=== PATIENT | female | born 1995 | race Caucasian/White ===

== ENCOUNTER → 2019-05-13 08:37 | Outpatient (CLI) | payer BC, SELFPAY ==
[2019-05-13 10:10] LABS: HCG,Quantitative 1584 mIU/mL
== END ==
PROVIDERS: Visit Provider Obstetrics & Gynecology
DX: Z34.90 Encounter for supervision of normal pregnancy, unspecified, unspecified trimester (principal)
CPT/HCPCS: 36415; 84702

== ENCOUNTER → 2019-07-22 13:16 | Outpatient (CLI) | payer BC, SELFPAY ==
--- NOTE | 2019-07-22 13:32 | US_ITS ---
PROCEDURE: US OB >= 14 WEEKS FETUS CLINICAL INDICATION: Early spotting, early OB with spotting COMPARISON: US OB TRANSVAGINAL from 05/17/2019 FINDINGS: There is a single live fetus in cephalic position. heart body motion noted. Average ultrasound age is 15 weeks 5 days. Cervix is closed and measures 3 cm. Following parameters are obtained: BPD 15 weeks 6 days, OFD 15 weeks 4 days, HC 15 weeks 3 days, AC 15 weeks 6 days, FL 15 weeks 4 days. heart tones are present 156 beats per minute. The placenta is anterior and grade 1 IMPRESSION: Live IUP at 15 weeks 5 days. Anterior placenta. No obvious retroplacental hemorrhage Estimated due date by Ultrasound is 01/08/2020 Dictated by: Wilner Meyers MD 07/22/2019 15:44 Electronically signed by Wilner Meyers MD in [place] 07/22/2019 15:44
== END ==
PROVIDERS: Visit Provider Nurse Practitioner Obstetrics & Gynecology
DX: O46.90 Antepartum hemorrhage, unspecified, unspecified trimester (principal)
CPT/HCPCS: 76805

== ENCOUNTER → 2019-08-19 13:02 | Outpatient (CLI) | payer BC, SELFPAY ==
--- NOTE | 2019-08-19 13:06 | US_ITS ---
PROCEDURE: US OB /MATERNAL DETAIL CLINICAL INDICATION: vaginal bleeding in Anatomy exam COMPARISON: US OB >= 14 WEEKS FETUS from 07/22/2019 FINDINGS: There is a single live fetus present which is in breech presentation. Placenta is anterior in implantation and grade 1. No obvious previa or abruption. Complete survey performed and was unremarkable on the submitted images as in PACS. No discrete anomalies identified on survey imaging by technologist. Active fetus. Three-vessel cord with satisfactory umbilical cord insertion. 4- chamber heart noted. Survey of brain & ventricles Unremarkable. Face and neck survey unremarkable. Diaphragm and chest views unremarkable. Abdomen: Both kidneys noted and unremarkable. Stomach noted and satisfactory. Spine: Survey of the spine satisfactory with no anomalies identified nor imaged. Both arms and legs noted. Amniotic Fluid: Adequate. Maternal adnexa: No significant findings. Average ultrasound age is 19 weeks 5 days. Estimated weight is 314 g. The following parameters are obtained BPD 19 weeks 1 day, OFD 20 weeks 3 days, HC 19 weeks 2 days, AC 19 weeks 6 days, FL 20 weeks 1 day. Heart rate is 140 beats per minute. All parameters correlate. No obvious anomalies are evident. IMPRESSION: Live IUP at 19 weeks 5 days. Breech presentation. All parameters correlate with no obvious anomalies. Please see above for detail Dictated by: Wilner Meyers MD 08/20/2019 19:08 Electronically signed by Wilner Meyers MD in [facility] 08/20/2019 19:08
== END ==
PROVIDERS: Visit Provider Nurse Practitioner Obstetrics & Gynecology
DX: O46.90 Antepartum hemorrhage, unspecified, unspecified trimester (principal)
CPT/HCPCS: 76810; 76811

== ENCOUNTER 2019-09-12 10:36 | Emergency (ER) | payer BC, SELFPAY ==
[2019-09-12 10:43] VITALS: BP 129/78; PULSE 103; RESP 18; TEMP 36.8; O2SAT 100; BMI 28.3
--- NOTE | 2019-09-12 10:45 | HMH.EDPREG ---
ED Disposition Clinical Impression: Muscle ache, Anxiety Disposition: Home, Self-Care Condition on Discharge: Good Instructions: DI for Musculoskeletal Pain, DI for Anxiety -- Adult Additional Instructions: You can use Tylenol for muscle aches or pain, not ibuprofen during . Follow-up with Dr. Hobson early next week for reevaluation. Return for any worsening symptoms, fever, other acute new concerns. - Critical Care Critical Care Time: No Attestation: On , the high probability of a clinically significant, sudden or life threatening deterioration of the following system(s) required my full and direct attention, intervention and personal management. The time I documented below is in addition to time spent performing reported procedures but includes the following listed in this critical care notation. Medical Decision Making - Medical Records Medical records reviewed: Yes: I reviewed the patient's medical records. - Min Inquiry Pt receiving controlled substance: No Vital Signs: 09/12/19 10:43 Temperature 98.2 F Temperature Source Oral Pulse Rate [Right Radial] 103 H Respiratory Rate 18 Blood Pressure [Right Arm] 129/78 Blood Pressure Mean [Right Arm] 95 Blood Pressure Source [Right Arm] Automatic Cuff Blood Pressure Position [Right Arm] Sitting 02 Sat by Pulse Oximetry 100 Oxygen Delivery Method Room Air - Lab Data Lab Results 09/12/19 11:00: WBC 13.8 H, RBC 3.54 L, Hgb 9.5 L, Hct 29.8 L, MCV 84.4, MCH 26.9 L, MCHC 31.9, RDW 15.8, Plt Count 241, MPV 9.6, Neut % (Auto) 76.4, Lymph % (Auto) 18.3, [place] % (Auto) 2.4, Eos % (Auto) 2.6, Baso % (Auto) 0.3, Neut # (Auto) 10.6 H, Lymph # (Auto) 2.5, [place] # (Auto) 0.3, Eos # (Auto) 0.4, Baso # (Auto) 0.0 09/12/19 11:00: Sodium 136, Potassium 3.5, Chloride 101, Carbon Dioxide 24, Anion Gap 14.5, BUN 7, Creatinine 0.60, Estimated Creat Clear 176, Estimated GFR 123, Est GFR ( Amer) 149, Glucose 146 H, Calcium 9.7 09/12/19 11:00: Total Bilirubin 0.2, Direct Bilirubin 0.0, Conjugated Bilirubin 0.0, Indirect Bilirubin 0.2, Unconjugated Bilirubin 0.2, AST 19, ALT 11 L, Alkaline Phosphatase 57, Total Protein 7.1, Albumin 3.7 09/12/19 11:00: Urine Color Yellow, Urine Appearance Sl cloudy, Urine pH 8.5, Ur Specific [place] 1.020, Urine Protein Negative, Urine Glucose (UA) Negative, Urine Ketones Negative, Urine Blood Negative, Urine Nitrate Negative, Urine Bilirubin Negative, Urine Urobilinogen 0.2, Ur Leukocyte Esterase Negative, Urine RBC None, Urine WBC 3-5, Ur Squamous Epith Cells 5-10, Urine Bacteria None Result diagrams: 09/12/19 11:00 09/12/19 11:00 Medical Decision Narrative: Patient with multiple concerns I suspect most likely related to anxiety. She has no unilateral swelling or tenderness that would suggest DVT. Electrolytes are within normal limits. She is slightly anemic, but this is unlikely to be the cause of her multiple concerns. Advise follow-up with Dr. Hobson early next week for reevaluation, return for any worsening symptoms or fever. There is no protein in the urine or clinically significant hypertension that would suggest preeclampsia. No UTI. FHT appropriate. HPI - General Stated complaint: numbness in legs and arms, due 01/06 Time Seen by Provider: 09/12/19 10:45 Mode of Arrival: Ambulatory Source of Information: Patient Limitations: No Limitations - History of Present Illness HPI Narrative: This is a 24-year-old female G2, P1 at 23 weeks who presents to the emergency department for evaluation of multiple complaints. She states that bilateral upper and lower extremities have been tingling and cramping, restless. Nothing makes her symptoms better or worse. She complains of epigastric pressure sensation and that her eyes have been burning. No chest pain or shortness of breath. She admits to struggling with anxiety regularly and that this may be contributing to her symptoms. Her has bee
[2019-09-12 11:12] LABS: Basophils % 0.3 % (0.1-2.0); Eosinophils # 0.4 K/mm3 (0.0-0.4); Eosinophils % 2.6 % (0.1-12.0); Hematocrit 29.8 % (37.0-47.0); Hemoglobin 9.5 g/dL (12.2-16.2); Lymphocytes # 2.5 K/mm3 (0.7-4.5); Lymphocytes % 18.3 % (10-50); Mean Corpuscular HGB Conc 31.9 g/dL (31.8-35.4); Mean Corpuscular Hemoglobin 26.9 pg (27.0-31.2); Mean Corpuscular Volume 84.4 fl (81-99); Mean Platelet Volume 9.6 fl (7.4-10.4); Monocytes # 0.3 K/mm3 (0.1-1.0); Monocytes % 2.4 % (1.7-9.3); Neutrophils # 10.6 K/mm3 (1.8-7.8); Neutrophils % 76.4 % (37.0-80.0); Platelet Count 241 K/mm3 (142-424); Red Blood Count 3.54 M/mm3 (4.20-5.40); Red Cell Distribution Width 15.8 % (11.5-17.5); White Blood Count 13.8 K/mm3 (4.8-10.8)
[2019-09-12 11:16] LABS: Alanine Aminotransferase 11 U/L (12-78); Albumin Level 3.7 g/dl (3.5-5.0); Alkaline Phosphatase 57 U/L (38-126); Anion Gap 14.5 mEq/L (5-15); Aspartate Amino Transferase 19 U/L (14-36); Bilirubin,Indirect 0.2 mg/dL (0.0-0.9); Bilirubin,Total 0.2 mg/dl (0.2-1.3); Bilirubin,Unconjugated 0.2 mg/dL (0.0-1.1); Blood Urea Nitrogen 7 mg/dl (7-17); Calcium 9.7 mg/dl (8.4-10.2); Carbon Dioxide 24 mmol/L (22.0-30.0); Chloride 101 mmol/L (98-107); Creatinine Clearance Estimated 176 mL/min (50-200); Estimated Glomerular Filt Rate 123 ml/min (>60); GFR (African American) 149 ML/MIN (>60); Glucose 146 mg/dl (74-100); Potassium 3.5 mmoL/L (3.5-5.1); Sodium 136 mmol/L (136-145); Total Protein,Serum 7.1 g/dl (6.3-8.2)
[2019-09-12 11:17] LABS: Microscopic, Urine URINE MICROSCOPIC (MICROSCOPIC)
[2019-09-12 11:18] LABS: Appearance,Urine SL CLOUDY (Clear); Bilirubin,Urine Negative (Negative); Blood, Urine Negative (Negative); Color,Urine YELLOW (Yellow); Glucose,Urine (UA) Negative (Negative); Ketones,Urine Negative (Negative); Leukocyte Esterase,Urine Negative (Negative); Nitrate,Urine Negative (Negative); PH,Urine 8.5 (5.0-8.5); Protein,Urine Negative (Negative); Urobilinogen,Urine 0.2 EU/dl (0.2)
[2019-09-12 11:29] VITALS: BP 110/68; PULSE 103; O2SAT 99
[2019-09-12 11:58] VITALS: BP 110/68; PULSE 103; RESP 18; TEMP 36.8; O2SAT 99
== END 2019-09-12 12:00 | disposition home or self-care (01) ==
PROVIDERS: Emergency Provider Emergency Medicine
DX: M79.10 Myalgia, unspecified site (principal); F41.9 Anxiety disorder, unspecified; Z3A.23 23 weeks gestation of pregnancy; Z90.09 Acquired absence of other part of head and neck; F17.290 Nicotine dependence, other tobacco product, uncomplicated
CPT/HCPCS: 80048; 80076; 81001; 85025; 99283

== ENCOUNTER → 2019-10-13 10:43 | Outpatient (CLI) | payer BC, SELFPAY ==
[2019-10-13 11:36] LABS: Glucose,Fasting 82 mg/dl (74-100)
[2019-10-13 12:45] LABS: Glucose 1 Hour 140 mg/dL (74-100)
== END ==
PROVIDERS: Visit Provider Nurse Practitioner Obstetrics & Gynecology
DX: Z34.90 Encounter for supervision of normal pregnancy, unspecified, unspecified trimester (principal)
CPT/HCPCS: 36415; 82951

== ENCOUNTER 2019-10-15 17:08 | Outpatient (CLI) | payer BC, SELFPAY ==
[2019-10-15 17:42] VITALS: BP 110/71; PULSE 108; RESP 20; TEMP 36.7; O2SAT 100; BMI 29.6
[2019-10-15 17:47] LABS: Microscopic, Urine URINE MICROSCOPIC (MICROSCOPIC)
[2019-10-15 17:48] LABS: Appearance,Urine CLEAR (Clear); Bilirubin,Urine Negative (Negative); Blood, Urine Negative (Negative); Color,Urine YELLOW (Yellow); Glucose,Urine (UA) Negative (Negative); Ketones,Urine Negative (Negative); Leukocyte Esterase,Urine Negative (Negative); Nitrate,Urine Negative (Negative); Protein,Urine Negative (Negative)
[2019-10-15 17:54] LABS: Bacteria,Urine 1+ /lpf; RBC,Urine Occasional #/hpf (0-3)
[2019-10-15 18:00] LABS: Benzodiazepines Screen,Urine Negative ng/ml (<200)
[2019-10-15 18:01] LABS: Amphetamine/Metha Screen,Urine Negative ng/ml (<1000)
[2019-10-15 18:02] LABS: Barbiturates Screen,Urine Negative ng/ml (<200); Methadone Screen,Urine Negative ng/ml (<300)
[2019-10-15 18:03] LABS: Cannabinoid Screen,Urine Positive ng/ml (<50); Cocaine Screen,Urine Negative ng/ml (<300)
[2019-10-15 18:05] LABS: Opiate Screen,Urine Negative ng/ml (<300)
[2019-10-15 18:06] LABS: Phencyclidine Screen,Urine Negative ng/ml (<25)
== END 2019-10-15 18:12 | disposition home or self-care (01) ==
LOC: OBOUT 17:12 → OB 17:14
PROVIDERS: PCP Nurse Practitioner Obstetrics & Gynecology; Visit Provider Obstetrics & Gynecology
DX: O26.892 Other specified pregnancy related conditions, second trimester (principal); Z3A.28 28 weeks gestation of pregnancy; R10.2 Pelvic and perineal pain; R11.2 Nausea with vomiting, unspecified
CPT/HCPCS: 59025; 80305; 81001

== ENCOUNTER → 2019-10-21 10:08 | Outpatient (CLI) | payer BC, SELFPAY ==
[2019-10-21 10:40] LABS: Glucose,Fasting 86 mg/dl (74-100)
[2019-10-21 12:09] LABS: Glucose 1 Hour 117 mg/dL (74-100)
[2019-10-21 12:56] LABS: Glucose 2 Hour 122 mg/dL (74-100)
[2019-10-21 13:53] LABS: Glucose 3 Hour 101 mg/dL (74-100)
== END ==
PROVIDERS: Visit Provider Nurse Practitioner Obstetrics & Gynecology
DX: Z34.90 Encounter for supervision of normal pregnancy, unspecified, unspecified trimester (principal)
CPT/HCPCS: 36415; 82951

== ENCOUNTER → 2019-10-29 12:29 | Outpatient (CLI) | payer BC, SELFPAY ==
--- NOTE | 2019-10-29 12:33 | US_ITS ---
PROCEDURE: US OB BIOPHYSICAL PROFILE CLINICAL INDICATION: rule out abruption Bleeding with TECHNIQUE: FINDINGS: There is a single live fetus in cephalic presentation. heart and body motion is noted. Cervix is closed and measures 3 cm transabdominal. Placenta is anterior and grade 1. No previa or abruption evident. The following parameters are obtained: Average ultrasound age is Average 29weeks 6days Estimated due date by ultrasound is 01/08/2020. Estimated weight is 1,398g. This is 21 percent. BPD: 30 weeks 4 days OFD: 29 weeks 0 days HC: 29 weeks 3 days AC: 29 weeks 0 days FL: 30 weeks 1 day heart rate: 158bpm bpm. HC/AC: 1.09 Cephalic index: 0.8 FL/BPD: 0.76 FL/AC: 0.23 Amniotic fluid index: 13.17cm Qualitative AFV: 2 breathing movements: 2 Gross body movements: 2 Tone: 2 Biophysical profile score: 8 IMPRESSION: Live IUP at 29 weeks 6 days. Cephalic position. No evidence of previa or abruption. Please see above for detail Dictated by: Wilner Meyers MD 10/29/2019 17:02 Electronically signed by Wilner Meyers MD in [place] 10/29/2019 17:02
== END ==
PROVIDERS: Visit Provider Nurse Practitioner Obstetrics & Gynecology
DX: O46.90 Antepartum hemorrhage, unspecified, unspecified trimester (principal)
CPT/HCPCS: 76816; 76819

== ENCOUNTER 2019-11-14 22:27 | Outpatient (CLI) | payer BC, SELFPAY ==
[2019-11-14 23:13] VITALS: BMI 27.3
[2019-11-14 23:24] LABS: Microscopic, Urine URINE MICROSCOPIC (MICROSCOPIC)
[2019-11-15 00:08] LABS: Barbiturates Screen,Urine Negative ng/ml (<200)
[2019-11-15 00:09] LABS: Benzodiazepines Screen,Urine Negative ng/ml (<200)
[2019-11-15 00:10] LABS: Amphetamine/Metha Screen,Urine Negative ng/ml (<1000); Methadone Screen,Urine Negative ng/ml (<300)
[2019-11-15 00:11] LABS: Cannabinoid Screen,Urine Positive ng/ml (<50); Cocaine Screen,Urine Negative ng/ml (<300)
[2019-11-15 00:13] LABS: Opiate Screen,Urine Negative ng/ml (<300); Phencyclidine Screen,Urine Negative ng/ml (<25)
[2019-11-15 00:37] LABS: Appearance,Urine CLEAR (Clear); Bilirubin,Urine Negative (Negative); Blood, Urine Negative (Negative); Color,Urine YELLOW (Yellow); Glucose,Urine (UA) Negative (Negative); Ketones,Urine Negative (Negative); Leukocyte Esterase,Urine Negative (Negative); Nitrate,Urine Negative (Negative); Protein,Urine Negative (Negative); Specific Gravity, Urine 1.015 (1.005-1.030); Urobilinogen,Urine 0.2 EU/dl (0.2)
[2019-11-15 00:44] LABS: Amorphous Sediment,Urine 2+ /lpf
[2019-11-15 01:27] VITALS: BP 114/76; PULSE 113; RESP 17; TEMP 36.9; O2SAT 98; BMI 27.3
== END 2019-11-14 23:40 | disposition home or self-care (01) ==
LOC: OBOUT 22:28 → OB 22:29
PROVIDERS: Visit Provider Nurse Practitioner Obstetrics & Gynecology
DX: O26.893 Other specified pregnancy related conditions, third trimester (principal); Z3A.32 32 weeks gestation of pregnancy; W18.39XA Other fall on same level, initial encounter; Y93.E1 Activity, personal bathing and showering
CPT/HCPCS: 59025; 80305; 81001; G0463

== ENCOUNTER 2019-12-03 12:40 | Outpatient (CLI) | payer BC, SELFPAY ==
[2019-12-03 12:46] VITALS: BP 99/61; PULSE 103; RESP 20; TEMP 37.3; O2SAT 98; BMI 31.1
[2019-12-03 13:13] LABS: Microscopic, Urine URINE MICROSCOPIC (MICROSCOPIC)
[2019-12-03 13:18] LABS: Appearance,Urine CLEAR (Clear); Bilirubin,Urine Negative (Negative); Blood, Urine Negative (Negative); Color,Urine YELLOW (Yellow); Glucose,Urine (UA) Negative (Negative); Ketones,Urine Negative (Negative); Leukocyte Esterase,Urine Negative (Negative); Nitrate,Urine Negative (Negative); PH,Urine 6.5 (5.0-8.5); Protein,Urine Negative (Negative); Urobilinogen,Urine 0.2 EU/dl (0.2)
[2019-12-03 13:28] LABS: Squamous Epithelial Cell,Urine Occasional #/hpf (0-5)
[2019-12-03 13:29] LABS: Fetal Membrane Rupture (Rapid) Negative (Negative)
[2019-12-03 13:30] LABS: Amphetamine/Metha Screen,Urine Negative ng/ml (<1000)
[2019-12-03 13:31] LABS: Barbiturates Screen,Urine Negative ng/ml (<200); Benzodiazepines Screen,Urine Negative ng/ml (<200)
[2019-12-03 13:34] LABS: Cannabinoid Screen,Urine Positive ng/ml (<50); Cocaine Screen,Urine Negative ng/ml (<300)
[2019-12-03 13:35] LABS: Methadone Screen,Urine Negative ng/ml (<300)
[2019-12-03 13:36] LABS: Opiate Screen,Urine Negative ng/ml (<300); Phencyclidine Screen,Urine Negative ng/ml (<25)
[2019-12-03 14:08] LABS: Basophils # 0.1 K/mm3 (0-0.2); Basophils % 0.4 % (0.1-2.0); Eosinophils # 0.2 K/mm3 (0.0-0.4); Eosinophils % 1.9 % (0.1-12.0); Hematocrit 26.4 % (37.0-47.0); Hemoglobin 8.3 g/dL (12.2-16.2); Lymphocytes # 2.4 K/mm3 (0.7-4.5); Lymphocytes % 19.8 % (10-50); Mean Corpuscular HGB Conc 31.5 g/dL (31.8-35.4); Mean Corpuscular Hemoglobin 24.5 pg (27.0-31.2); Mean Corpuscular Volume 77.7 fl (81-99); Mean Platelet Volume 9.6 fl (7.4-10.4); Monocytes # 0.4 K/mm3 (0.1-1.0); Monocytes % 3.7 % (1.7-9.3); Neutrophils # 8.8 K/mm3 (1.8-7.8); Neutrophils % 74.3 % (37.0-80.0); Platelet Count 296 K/mm3 (142-424); Red Cell Distribution Width 15.8 % (11.5-17.5); White Blood Count 11.9 K/mm3 (4.8-10.8)
[2019-12-05 12:38] LABS: HIV Screen 4th Generation wRfx Non Reactive (Non Reactive)
[2019-12-05 14:16] LABS: Hepatitis B Surface Antigen Negative (Negative)
[2019-12-05 18:48] LABS: Rapid Plasma Reagin Ab Titer Non Reactive (NonRea<1:1)
[2019-12-06 09:53] LABS: Rubella Antibodies, IgG 1.68 index (Immune >0.99)
== END 2019-12-03 14:05 | disposition home or self-care (01) ==
LOC: OBOUT 12:42 → OB 12:43
PROVIDERS: Visit Provider Nurse Practitioner Obstetrics & Gynecology
DX: O26.893 Other specified pregnancy related conditions, third trimester (principal); Z3A.34 34 weeks gestation of pregnancy; R10.2 Pelvic and perineal pain
CPT/HCPCS: 36415; 59025; 80305; 81001; 84112; 85025; 86592; 86762; 87340; G0463

== ENCOUNTER 2019-12-08 12:53 | Outpatient (CLI) | payer BC, SELFPAY ==
[2019-12-08 13:10] VITALS: BP 116/67; PULSE 120; RESP 18; TEMP 36.3; O2SAT 98
[2019-12-08 13:41] VITALS: BP 107/67; PULSE 107; RESP 18; O2SAT 98
== END 2019-12-08 13:50 | disposition home or self-care (01) ==
LOC: INF 12:53
PROVIDERS: Visit Provider Nurse Practitioner Obstetrics & Gynecology
DX: O99.013 Anemia complicating pregnancy, third trimester (principal)
CPT/HCPCS: 96365; J1756

== ENCOUNTER 2019-12-10 08:45 | Outpatient (CLI) | payer BC, SELFPAY ==
[2019-12-10 09:18] VITALS: BP 105/52; PULSE 102; RESP 18; TEMP 36.9
[2019-12-10 09:50] VITALS: BP 124/71; PULSE 98; RESP 18
== END 2019-12-10 10:10 | disposition home or self-care (01) ==
LOC: INF 08:47
PROVIDERS: Visit Provider Nurse Practitioner Obstetrics & Gynecology
DX: O99.013 Anemia complicating pregnancy, third trimester (principal)
CPT/HCPCS: 96365; J1756

== ENCOUNTER → 2019-12-13 10:32 | Outpatient (CLI) | payer BC, SELFPAY ==
[2019-12-13 10:55] VITALS: BP 113/70; PULSE 126; RESP 18; TEMP 36.7; O2SAT 96
[2019-12-13 11:10] VITALS: BMI 37.0
[2019-12-13 11:30] VITALS: BP 106/63; PULSE 104; RESP 18; O2SAT 96
[2019-12-13 12:00] VITALS: BP 112/69; PULSE 100; RESP 17; O2SAT 99
== END ==
PROVIDERS: Visit Provider Nurse Practitioner Obstetrics & Gynecology
DX: O99.013 Anemia complicating pregnancy, third trimester (principal)
CPT/HCPCS: 96365; G0463; J1756

== ENCOUNTER 2019-12-15 10:55 | Outpatient (CLI) | payer BC, SELFPAY ==
[2019-12-15 11:07] VITALS: BP 111/70; PULSE 101; RESP 18; TEMP 36.6
[2019-12-15 11:50] VITALS: BP 113/66; PULSE 102; RESP 18
== END 2019-12-15 11:50 | disposition home or self-care (01) ==
LOC: INF 10:58
PROVIDERS: Visit Provider Nurse Practitioner Obstetrics & Gynecology
DX: O99.013 Anemia complicating pregnancy, third trimester (principal)
CPT/HCPCS: 96365; J1756

== ENCOUNTER 2019-12-17 10:45 | Outpatient (CLI) | payer BC, SELFPAY ==
[2019-12-17 11:08] VITALS: BP 105/57; PULSE 103; RESP 18; O2SAT 97
[2019-12-17 11:55] VITALS: BP 111/60; PULSE 100; RESP 18
== END 2019-12-17 11:55 | disposition home or self-care (01) ==
LOC: INF 10:48
PROVIDERS: Visit Provider Nurse Practitioner Obstetrics & Gynecology
DX: O99.013 Anemia complicating pregnancy, third trimester (principal)
CPT/HCPCS: 96365

== ENCOUNTER → 2019-12-20 16:50 | Outpatient (CLI) | payer BC, SELFPAY | PROVIDERS: Visit Provider Nurse Practitioner Obstetrics & Gynecology | DX: Z34.90 Encounter for supervision of normal pregnancy, unspecified, unspecified trimester (principal) | CPT/HCPCS: 86403 ==

== ENCOUNTER 2019-12-23 09:51 | Outpatient (CLI) | payer BC, SELFPAY ==
[2019-12-23 10:02] VITALS: BMI 31.2
[2019-12-23 10:07] VITALS: BP 115/71; PULSE 113; RESP 18; TEMP 36.5; O2SAT 100; BMI 30.9
[2019-12-23 10:10] LABS: Microscopic, Urine URINE MICROSCOPIC (MICROSCOPIC)
[2019-12-23 10:13] LABS: Appearance,Urine CLEAR (Clear); Bilirubin,Urine Negative (Negative); Blood, Urine Negative (Negative); Color,Urine YELLOW (Yellow); Glucose,Urine (UA) Negative (Negative); Ketones,Urine Negative (Negative); Leukocyte Esterase,Urine Negative (Negative); Nitrate,Urine Negative (Negative); PH,Urine 7.5 (5.0-8.5); Protein,Urine Negative (Negative); Specific Gravity, Urine 1.015 (1.005-1.030); Urobilinogen,Urine 0.2 EU/dl (0.2)
[2019-12-23 10:25] LABS: Amphetamine/Metha Screen,Urine Negative ng/ml (<1000); Bacteria,Urine Trace /lpf; RBC,Urine Occasional #/hpf (0-3)
[2019-12-23 10:26] LABS: Barbiturates Screen,Urine Negative ng/ml (<200)
[2019-12-23 10:27] LABS: Benzodiazepines Screen,Urine Negative ng/ml (<200); Cannabinoid Screen,Urine Negative ng/ml (<50)
[2019-12-23 10:28] LABS: Cocaine Screen,Urine Negative ng/ml (<300)
[2019-12-23 10:29] LABS: Methadone Screen,Urine Negative ng/ml (<300); Opiate Screen,Urine Negative ng/ml (<300)
[2019-12-23 10:30] LABS: Phencyclidine Screen,Urine Negative ng/ml (<25)
== END 2019-12-23 11:40 | disposition home or self-care (01) ==
LOC: OBOUT 09:52 → OB 09:53
PROVIDERS: Visit Provider Nurse Practitioner Obstetrics & Gynecology
DX: O60.03 Preterm labor without delivery, third trimester (principal); Z3A.37 37 weeks gestation of pregnancy
CPT/HCPCS: 59025; 80305; 81001; 96365; G0463

== ENCOUNTER → 2020-01-01 14:07 | Outpatient (CLI) | payer BC, SELFPAY ==
[2020-01-01 17:49] LABS: Coronavirus 19 IgG Antibody Negative (Negative); Coronavirus 19 IgM Antibody Negative (Negative)
== END ==
PROVIDERS: Visit Provider Nurse Practitioner Obstetrics & Gynecology
DX: Z03.818 Encounter for observation for suspected exposure to other biological agents ruled out (principal)
CPT/HCPCS: 36415; 86328

== ENCOUNTER 2020-01-03 05:18 | Inpatient (IN) | payer BC, SELFPAY ==
[2020-01-03] VITALS (10 sets, daily range): BP systolic 110–164; BP diastolic 60–82; PULSE 80–99; RESP 12–18; TEMP 36.5–36.8; O2SAT 92–99; BMI 31.4
[2020-01-03 06:07] LABS: Microscopic, Urine URINE MICROSCOPIC (MICROSCOPIC)
[2020-01-03 06:15] LABS: Chloride 108 mmol/L (98-107); Potassium 3.7 mmoL/L (3.5-5.1); Sodium 137 mmol/L (136-145)
[2020-01-03 06:17] LABS: Basophils # 0.1 K/mm3 (0-0.2); Basophils % 0.6 % (0.1-2.0); Eosinophils # 0.3 K/mm3 (0.0-0.4); Eosinophils % 2.7 % (0.1-12.0); Hematocrit 32.7 % (37.0-47.0); Hemoglobin 10.5 g/dL (12.2-16.2); Lymphocytes # 2.2 K/mm3 (0.7-4.5); Lymphocytes % 23.5 % (10-50); Mean Corpuscular Hemoglobin 28.7 pg (27.0-31.2); Mean Corpuscular Volume 89.6 fl (81-99); Mean Platelet Volume 9.4 fl (7.4-10.4); Monocytes # 0.4 K/mm3 (0.1-1.0); Monocytes % 4.5 % (1.7-9.3); Neutrophils # 6.5 K/mm3 (1.8-7.8); Neutrophils % 68.6 % (37.0-80.0); Platelet Count 203 K/mm3 (142-424); Red Blood Count 3.64 M/mm3 (4.20-5.40); White Blood Count 9.5 K/mm3 (4.8-10.8)
[2020-01-03 06:18] LABS: Blood Urea Nitrogen 4 mg/dl (7-17); Creatinine Clearance Estimated 235 mL/min (50-200); Estimated Glomerular Filt Rate 152 ml/min (>60); GFR (African American) 183 ML/MIN (>60); Red Cell Distribution Width 25.8 % (11.5-17.5)
[2020-01-03 06:19] LABS: Anion Gap 12.7 mEq/L (5-15); Calcium 9.4 mg/dl (8.4-10.2); Carbon Dioxide 20 mmol/L (22.0-30.0); Glucose 86 mg/dl (74-100)
[2020-01-03 06:44] LABS: Appearance,Urine CLEAR (Clear); Bilirubin,Urine Negative (Negative); Blood, Urine Negative (Negative); Color,Urine YELLOW (Yellow); Glucose,Urine (UA) Negative (Negative); Ketones,Urine Negative (Negative); Leukocyte Esterase,Urine Negative (Negative); Nitrate,Urine Negative (Negative); Protein,Urine Negative (Negative); Urobilinogen,Urine 0.2 EU/dl (0.2)
[2020-01-03 07:03] LABS: Amphetamine/Metha Screen,Urine Negative ng/ml (<1000); Barbiturates Screen,Urine Negative ng/ml (<200)
[2020-01-03 07:04] LABS: Benzodiazepines Screen,Urine Negative ng/ml (<200)
[2020-01-03 07:05] LABS: Cannabinoid Screen,Urine Negative ng/ml (<50); Cocaine Screen,Urine Negative ng/ml (<300)
[2020-01-03 07:06] LABS: Methadone Screen,Urine Negative ng/ml (<300); Opiate Screen,Urine Negative ng/ml (<300)
[2020-01-03 07:07] LABS: Phencyclidine Screen,Urine Negative ng/ml (<25)
[2020-01-03 07:48] LABS: Bacteria,Urine Trace /lpf
[2020-01-03 08:03] LABS: Cord Blood PH 7.42 (7.35-7.45)
[2020-01-03 08:13] LABS: Microscopic,Cath URINE MICROSCOPIC (MICROSCOPIC)
--- NOTE | 2020-01-03 08:37 | HMH.OPNOTE ---
Date of procedure: 01/03/20 Pre-op Diagnosis:: Term , previous section, desire for sterilization Post-op Diagnosis:: Term , previous section, desire for sterilization Procedure performed:: Repeat lower segment transverse section and bilateral salpingectomy Surgeon:: Rony Roberson MD [employer] Specialist(s):: Cynthia Burrell TAX SERVICES SPECIALIST:: Lupillo Brown Anesthesia: spinal Estimated blood loss (mL): 1,000 Clinical Note:: She is a 24-year-old 2 para 1 at 39 weeks gestational age. She has had a previous section as result of that was offered repeat lower segment transverse section at term. She also expressed desire for sterilization. The risks and benefits of surgery as well as the irreversibility of bilateral salpingectomy were discussed with the patient prior to surgery. Operative findings:: She delivered a liveborn male child at 7:53 AM on the morning of January 02, 2020. The baby had Apgars of 8 at 1 minute and 9 at 5 minutes. He weighed 8 pounds 0 ounces. pH was 7.42. Ovaries and tubes appeared normal. Operative note:: She was taken to the operating room where spinal anesthesia was found be adequate. She was prepped and draped in normal sterile fashion in the supine position with a leftward tilt. A Moreno catheter was in the bladder. A Pfannenstiel skin incision was made with knife then carried through to the underlying layer of fascia with cautery. The fascia was opened in the midline with cautery and extended laterally using Reagan scissors. [place] clamps were applied to the superior aspect of the fascial incision which was tented up and the underlying rectus muscles dissected off using cautery. The Nataly clamps were then applied to the inferior aspect of the fascial incision which in a similar fashion was tented up and the underlying rectus muscles dissected off using cautery. The rectus muscles were then in the midline, the peritoneum identified, and entered sharply with Metzenbaum scissors. This incision was then extended superiorly and inferiorly with cautery. We had good visualization of the bladder inferiorly. The bladder peritoneum was then opened in the midline and extended laterally using Metzenbaum scissors. A bladder flap was created digitally. Transverse incision was made through the uterine muscle to the amnion. This incision was then extended laterally using fingers traction. The amnion was entered sharply with knife. There was clear amniotic fluid. The infant's head was then delivered atraumatically. This was followed by the anterior shoulder and the rest of the infant's body atraumatically. The oropharynx and nasopharynx were bulb suctioned. We allowed the cord to continue to pulsate for approximately 1 minute. The cord was then doubly clamped and cut. The infant was then handed off to Dr. Angeles who assigned Apgars of 8 at 1 minute and 9 at 5 minutes. We then obtained cord blood as well as cord pH. The pH was 7.42. Using gentle traction on the cord and countertraction on the fundus I was able to easily deliver the placenta intact. It had a normal three-vessel cord. The uterus was then cleared of clots and debris . The uterus was then exteriorized from the abdominal cavity. The uterine incision was then closed using running 0 Vicryl suture in a locked fashion. A second layer of the same suture was used to imbricate the first layer. The bladder peritoneum was then closed using running 2-0 Vicryl suture in a locked fashion. The gutters and cul-de-sac were then cleared of clots and debris . Once again hemostasis was assured. We then performed a bilateral salpingectomy. The right tube was grasped with a Alexandra and we cauterized along the mesosalpinx. The tube was then removed at the cornua. This was similar performed on the opposite side. After once again assuring hemostasis the uterus was then returned to the abdominal cavity. The peritoneum was gras
--- NOTE | 2020-01-03 08:40 | P.PN_ITS ---
[facility] Anesthesia Checklist - Patient Identification Patient Identification: Arm Band - Structural Data Admitted From: Inpatient Planned Operative Procedure/s: Repeat c/s with BTL Consent for Planned Operative Procedure(s) Verified: Yes Verified Documents: Surgical Consent, History and Physical - NPO Status Verified Time NPO: 00:00 - Additional verifications Anesthesia Reactions: No - Airway Assessment C-Spine Mobility Assessed: Yes (mp2) TMJ Mobility Assessed: Yes Dentition: Good Dentition - Neurological Assessment Level of Consciousness: Awake, Alert - Anesthesia Plan Anesthesia Risk discussed: Yes Anesthesia Plan: Verified ASA Class: II Anesthesia Type: Spinal [facility] History I have reviewed the patient's past medical history: Yes Medical History: Denies:: Diabetes Mellitus Type 1, Diabetes Mellitus Type 2 *Have you ever received a pneumonia vaccine?: No *Have you received a flu vaccine this season?: No Other Medical History: Reports: Anemia Anesthesia experience/problems:: nac Laterality Cases: Bilateral: Tonsillectomy Other Surgeries: Yes: , Diagnostic Lap Amputation: No Fractures: No - *Social History Smoking Status: Current every day smoker Tobacco Type: cigarettes # Packs/Day (cigarettes): 1 Alcohol Intake: never Alcohol Intake Frequency:: other Substance Use Type: marijuana *Occupational Status:: unemployed Housing: house Household Members: spouse, children *Travel in the last 8 weeks: None Family Hx:: No significant family history Para: 1
--- NOTE | 2020-01-03 08:41 | HMH.ANESI ---
[facility] Anesthesia Record Part I Intake, IV Amount: 2,000 Estimated blood loss (mL): 1,000 Urine output (mL): 200 Blood Pressure: 149/75 SaO2: 96 Pulse Rate: 93 Respiratory Rate: 16 Temperature: 97.7 F Patient is:: Drowsy, Stable Stable to PACU at:: 08:35
--- NOTE | 2020-01-03 08:43 | HMH.OBAPHP ---
OB - H&P: HPI Antepartum - History of Present Illness Chief complaint: Previous section, desire for sterilization History of present illness: she is a 24-year-old 2 para 1 who is 39 weeks gestational age. She had a previous section and was offered repeat lower segment transverse section at term. She also expressed desire for sterilization. - History of Present Criteria for establishing EDC:: LMP confirmed by 1st trimester US care: good care Ultrasounds: normal 1st trimester US, normal mid trimester US Obstetrical complications: previous Medical complications: none [facility] History I have reviewed the patient's past medical history: Yes Medical History: Denies:: Diabetes Mellitus Type 1, Diabetes Mellitus Type 2 *Have you ever received a pneumonia vaccine?: No *Have you received a flu vaccine this season?: No Other Medical History: Reports: Anemia Anesthesia experience/problems:: nac Laterality Cases: Bilateral: Tonsillectomy Other Surgeries: Yes: , Diagnostic Lap Amputation: No Fractures: No - *Social History Smoking Status: Current every day smoker Tobacco Type: cigarettes # Packs/Day (cigarettes): 1 Alcohol Intake: never Alcohol Intake Frequency:: other Substance Use Type: marijuana *Occupational Status:: unemployed Housing: house Household Members: spouse, children *Travel in the last 8 weeks: None Family Hx:: No significant family history Para: 1 Review of Systems - Review of Systems Review of systems:: pertinent systems reviewed and negative unless documented below Meds Home Medications Medication Instructions Recorded Confirmed Type Ondansetron [Zofran 4mg ODT] 4 mg PO Q8 PRN 3 Days #8 tab.rapdis 05/11/19 12/31/19 Rx acetaminophen 160 mg/5 mL oral 160 mg PO NEEDED PRN ml 09/28/19 12/31/19 History liquid Albuterol Sulfate [Albuterol 8.5 gm IH DAILYP PRN 12/08/19 12/31/19 History Sulfate Hfa] Allergies Allergy/AdvReac Type Severity Reaction Status Date / Time No Known Allergies Allergy Verified 12/31/19 10:03 OB - H&P: Exam - Physical Exam Vital signs: Temp Pulse Resp BP Pulse Ox 97.7 F 93 H 16 149/75 H 96 01/03/20 08:42 01/03/20 08:42 01/03/20 08:42 01/03/20 08:42 01/03/20 05:45 - Constitutional no acute distress - Routine HEENT Exam Head: Present: normocephalic Eye: Present: EOMI, PERRL ENT: Present: mucous membranes moist - Routine Neck Exam Present: supple, full ROM - Routine Respiratory Exam Absent: accessory muscle use (good air entry bilaterally), respiratory distress, wheezes, crackles - Routine Cardiovascular Exam Present: RRR. Absent: murmur - Routine Abdominal Exam Present: soft, normoactive bowel sounds. Absent: tenderness, distended, guarding - Routine Rectal Exam Patient deferred: visual exam, digital exam - Routine Exam Patient deferred: external exam, groin exam, perineal exam - Routine Extremities Exam Present: full ROM. Absent: cyanosis, edema - Routine Skin Exam Present: intact. Absent: cyanosis - Routine Neurological Exam Present: alert, oriented X3 - Routine Psychiatric Exam Present: normal affect OB - Results - Labs Labs: Short CBC 01/03/20 Range/Units 05:45 WBC 9.5 (4.8-10.8) K/mm3 Hgb 10.5 L (12.2-16.2) g/dL Hct 32.7 L (37.0-47.0) % Plt Count 203 (142-424) K/mm3 BMP 01/03/20 05:45 Sodium 137 Potassium 3.7 Chloride 108 H Carbon Dioxide 20 L BUN 4 L Creatinine 0.50 L Glucose 86 Calcium 9.4 Urine 01/03/20 Range/Units 05:40 Urine Color Yellow (Yellow) Urine Appearance Clear (Clear) Urine pH 7.0 (5.0-8.5) Ur Specific [place] 1.020 (1.005-1.030) Urine Protein Negative (Negative) Urine Glucose (UA) Negative (Negative) OB - A/P Antepartum (1) Previous section complicating , with delivery Current visit: Yes Status:
[2020-01-03 09:26] LABS: Appearance,Urine/Cath CLEAR (Clear); Bilirubin,Cath Negative (Negative); Blood, Urine/Cath Negative (Negative); Color,Urine/Cath YELLOW (Yellow); Glucose,Urine/Cath (UA) Negative (Negative); Ketones,Urine/Cath Negative (Negative); Leukocyte Esterase,Cath Negative (Negative); Nitrate,Cath Negative (Negative); Protein,Urine/Cath Negative (Negative); Urobilinogen,Cath 0.2 EU/dl (0.2)
--- NOTE | 2020-01-03 10:50 | HMH.PHAVTE ---
[facility] Pharmacy VTE Monitoring - Patient Demographics Admission date: 01/03/20 Report Date: 01/03/20 Time: 10:50 Allergies/Adverse Reactions: Patient Allergies No Known Allergies Allergy (Verified 12/31/19 10:03) Height: 1.65 m Weight: 85.786 kg Patient Problems: Current Active Problems Previous section complicating , with delivery (Acute) delivery delivered (Acute) Admission for tubal ligation (Acute) - VTE Risk Labs: VTE Related Lab Results Hgb 10.5 g/dL (12.2-16.2) L 01/03/20 05:45 Hct 32.7 % (37.0-47.0) L 01/03/20 05:45 Plt Count 203 K/mm3 (142-424) 01/03/20 05:45 BUN 4 mg/dl (7-17) L 01/03/20 05:45 Creatinine 0.50 mg/dl (0.52-1.04) L 01/03/20 05:45 Estimated Creat Clear 235 mL/min (50-200) 01/03/20 05:45 Clinical Trial Participant: No - Prophylaxis VTE Prophylaxis Ordered?: Yes Types of VTE Prophylaxis: IPCS Knee High (POST OP)
[2020-01-03 10:56] LABS: WBC,Urine/Cath Occasional #/hpf (0-3)
--- NOTE | 2020-01-03 12:26 | HMH.ANESII ---
[facility] Anesthesia Record Part II Discharge Time: 09:25 Destination: Obstetric PACU nurse assessment reviewed?: Yes Patient Condition:: Good Anesthesia Complications:: None Swallowing reflex intact?: Yes Cyanosis?: No Blood Pressure: 137/64 Pulse Rate: 83 Temperature: 98 F Mental Status: Alert & Oriented Pain level:: 0 Nausea and/or vomitting:: None Intake, IV Amount: 0
[2020-01-04 06:46] LABS: Hematocrit 26.1 % (37.0-47.0); Hemoglobin 8.1 g/dL (12.2-16.2)
[2020-01-04 08:00] VITALS: BP 95/53; PULSE 85; RESP 18; TEMP 36.8; O2SAT 100
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
--- NOTE | 2020-01-04 13:59 | HMH.ACPN2 ---
Internal Medicine - PN: Subj *Date: 01/04/20 *Time: 13:59 Interval history: She is doing well although she does complain of some bilateral shoulder pain. I suspect she has some diaphragmatic irritation from her surgery. Hemoglobin is slightly low at 8.1. She is otherwise asymptomatic. Her lochia is normal. Exam Vital signs and Labs for Last 24 Hours: Temp Pulse Resp BP Pulse Ox 98.2 F 85 18 95/53 L 100 01/04/20 08:00 01/04/20 08:00 01/04/20 08:00 01/04/20 08:00 01/04/20 08:00 Laboratory Results - last 24 hr 01/04/20 06:15: Hgb 8.1 L, Hct 26.1 L I & O for Last 24 hours: Intake & Output 01/02/20 01/03/20 01/04/20 01/05/20 11:59 11:59 11:59 11:59 Intake Total 2000 / 2000 0 / 0 Output Total 200 / 200 Balance 1800 / 1800 0 / 0 Weight 189 lb 2 oz - Constitutional no acute distress - *Routine HEENT Exam Head: Present: normocephalic Eye: Present: EOMI, PERRL ENT: Present: mucous membranes moist Assessment and Plan (1) Previous section complicating , with delivery Current visit: Yes Status: Acute Category: Surgical Code(s): O34.219 - Maternal care for unspecified type scar from previous delivery (2) delivery delivered Current visit: Yes Status: Acute Category: Medical Code(s): O82 - Encounter for delivery without indication (3) Admission for tubal ligation Current visit: Yes Status: Acute Category: Medical Code(s): Z30.2 - Encounter for sterilization - Assessment and plan all Dx Assessment and Plan for all problems:: She is doing well although she does complain of some bilateral shoulder pain. We will continue with close observation. We will plan to send her home in 48 hours. Her lochia is normal. Her hemoglobin is slightly low but she had low iron throughout her .
[2020-01-04 19:53] VITALS: BP 106/57; PULSE 93; RESP 18; TEMP 37.1; O2SAT 99
[2020-01-05 00:03] VITALS: BP 102/56; PULSE 85; RESP 16; TEMP 36.7; O2SAT 97
[2020-01-05 03:42] VITALS: BP 103/58; PULSE 80; RESP 18; TEMP 36.9
[2020-01-05 08:00] VITALS: BP 100/55; PULSE 83; RESP 20; TEMP 36.8; O2SAT 100
--- NOTE | 2020-01-05 09:46 | P.PN_ITS ---
Internal Medicine - PN: Subj *Date: 01/05/20 *Time: 09:46 Interval history: She is doing well this morning. She does complain of some lower abdominal pain. She is afebrile. She is breast-feeding. Her lochia is normal. Exam Vital signs and Labs for Last 24 Hours: Temp Pulse Resp BP Pulse Ox 98.5 F 80 18 103/58 L 97 01/05/20 03:42 01/05/20 03:42 01/05/20 03:42 01/05/20 03:42 01/05/20 00:03 I & O for Last 24 hours: Intake & Output 01/02/20 01/03/20 01/04/20 01/05/20 11:59 11:59 11:59 11:59 Intake Total 2000 / 2000 0 / 0 Output Total 200 / 200 Balance 1800 / 1800 0 / 0 Weight 189 lb 2 oz - Constitutional no acute distress - *Routine HEENT Exam Head: Present: normocephalic Eye: Present: EOMI, PERRL ENT: Present: mucous membranes moist - *Routine Abdominal Exam Present: soft, normoactive bowel sounds. Absent: tenderness Comments: Her belly is tender. Her incision is clean and dry. Assessment and Plan (1) Previous section complicating , with delivery Current visit: Yes Status: Acute Category: Surgical Code(s): O34.219 - Maternal care for unspecified type scar from previous delivery (2) delivery delivered Current visit: Yes Status: Acute Category: Medical Code(s): O82 - Encounter for delivery without indication (3) Admission for tubal ligation Current visit: Yes Status: Acute Category: Medical Code(s): Z30.2 - Encounter for sterilization - Assessment and plan all Dx Assessment and Plan for all problems:: She is doing well this morning. She still has some pain. She is taking hydromorphone every 3-4 hours. She is taking Toradol as well. She is breast- feeding. Will plan to send her home tomorrow.
--- NOTE | 2020-01-05 14:10 | HMH.OBDCSM ---
General - General Admission date:: 01/03/20 Discharge date: 01/06/20 HPI - History of Present Illness History of present illness: She is a 24-year-old 2 now para 2 who was 39 weeks gestational age. She has had a previous section as result that was offered repeat lower segment transverse section at term. She also expressed desire for sterilization. Hospital Course Hospital Course: On January 03, 2020 she underwent a repeat lower segment transverse section and bilateral salpingectomy. She delivered a liveborn male child at 7:53 AM. The baby weighed 8 pounds and had Apgars of 9 at 1 minute and 9 at 5 minutes. She has done well postoperatively and has remained afebrile throughout her hospitalization. She is eating and drinking and ambulating. She is breast-feeding. Her pain is reasonably well controlled with hydromorphone and ketorolac. She will be discharged home to follow-up with me in approximately 2 weeks time. She will continue with her vitamins and iron. She will be given a prescription for hydromorphone 2 mg number 30 tablets to take every 4 hours as needed. She will take Toradol as well and was given a prescription for 20 tablets of 10 mg. She was given the usual instructions with respect to limiting her activity, driving and sexual activity. She has O Rh+ blood, she is rubella immune and was group B streptococcus negative. She is breast-feeding. Her condition on discharge is stable and improved. Rhogam Administration: Not Indicated Objective Vital signs: Temp Pulse Resp BP Pulse Ox 98.2 F 83 20 100/55 L 100 01/05/20 08:00 01/05/20 08:00 01/05/20 08:00 01/05/20 08:00 01/05/20 08:00 no acute distress DS: Diagnosis - Discharge Diagnosis (1) Previous section complicating , with delivery Status: Acute (2) delivery delivered Status: Acute (3) Admission for tubal ligation Status: Acute Discharge Plan - Patient Discharge Instructions ACTIVITY: No heavy lifting DIET: continue same diet Additional Instructions: FOLLOW-UP WITH DR. BROWN ON NOTHING IN VAGINA FOR 6 WEEKS NO DRIVING WHILE TAKING PAIN MEDICATION NO HEAVY LIFTING OR STRENUOUS ACTIVITY Patient Instructions: Depression, Hemorrhage, DI for , DI for Pre-eclampsia, DI for Surgical Site Infection, [facility] Post Discharge Instructions, Preventing the Spread of Coronavirus Discharge Instructions - Follow up Plan Disposition: Home, Self-Assisted Medications: Home Medications Medication Instructions Recorded Confirmed Type acetaminophen 160 mg/5 mL oral 15 ml PO Q4HP PRN ml 09/28/19 01/03/20 History liquid Albuterol Sulfate [Albuterol 1 puff IH DAILYP PRN 12/08/19 01/03/20 History Sulfate Hfa] Ondansetron [Zofran 4mg ODT] 4 mg PO Q4-6H PRN 01/03/20 01/03/20 History Hydromorphone HCl [Hydromorphone 2 mg PO Q4HP PRN #30 tab 01/05/20 Rx 2mg Tab] Ketorolac Tromethamine [Toradol 10 mg PO Q6H 5 Days #20 tab 01/05/20 Rx 10mg tablet] Prescriptions/Medication Reconciliation: New Ketorolac Tromethamine [Toradol 10mg tablet] 10 mg PO Q6H 5 Days #20 tab Hydromorphone HCl [Hydromorphone 2mg Tab] 2 mg PO Q4HP PRN #30 tab PRN Reason: Severe Pain Continued acetaminophen 160 mg/5 mL oral liquid 15 ml PO Q4HP PRN ml PRN Reason: pain Albuterol Sulfate [Albuterol Sulfate Hfa] 1 puff IH DAILYP PRN PRN Reason: soa Ondansetron [Zofran 4mg ODT] 4 mg PO Q4-6H PRN PRN Reason: Nausea - Problem Reconciliation Problems Reviewed?: Yes
[2020-01-05 19:32] VITALS: BP 102/66; PULSE 100; RESP 18; TEMP 36.9; O2SAT 100
[2020-01-06] VITALS: BP 108/59; PULSE 82; RESP 18; TEMP 36.8; O2SAT 100
[2020-01-06 03:50] VITALS: BP 97/53; PULSE 70; RESP 18; TEMP 36.8; O2SAT 97
[2020-01-06 08:00] VITALS: BP 114/76; PULSE 90; RESP 20; TEMP 36.9; O2SAT 100
--- NOTE | 2020-01-06 09:16 | HMH.ACPN2 ---
Internal Medicine - PN: Subj *Date: 01/06/20 *Time: 09:16 Interval history: no postop/ complaints tolerating regular diet, ambulating and voiding without difficulty asymptomatic with acute blood loss anemia pain control sufficient infant transferred to because of increasing withdrawal symptoms patient acknowledges marijuana abuse throughout the which she reports was stopped around 7 months Exam Vital signs and Labs for Last 24 Hours: Temp Pulse Resp BP Pulse Ox 98.5 F 90 20 114/76 100 01/06/20 08:00 01/06/20 08:00 01/06/20 08:00 01/06/20 08:00 01/06/20 08:00 I & O for Last 24 hours: Intake & Output 01/03/20 01/04/20 01/05/20 01/06/20 11:59 11:59 11:59 11:59 Intake Total 1999 / 1999 0 / 0 Output Total 200 / 200 Balance 1800 / 1800 0 / 0 Weight 189 lb 2 oz Narrative: CONSTITUTIONAL: no acute distress HEENT: mucous membranes moist PULMONARY: breathing unlabored without audible wheezes CV: no tachycardia or visible JVD; normal LE peripheral pulses ABD: soft, ND; appropriately tender but no rebound/guarding : fundus firm at/below umbilicus SKIN: incision well approximated with no drainage, erythema or induration EXT: 1+ edema LEs NEURO: alert/oriented, no altered mental status PSYCH: upset with anxiety about transfer to Assessment and Plan (1) Previous section complicating , with delivery Status: Acute Category: Surgical Code(s): O34.219 - Maternal care for unspecified type scar from previous delivery (2) delivery delivered Status: Acute Category: Medical Code(s): O82 - Encounter for delivery without indication (3) Admission for tubal ligation Status: Acute Category: Medical Code(s): Z30.2 - Encounter for sterilization (4) Acute blood loss anemia Status: Acute Category: Medical Code(s): D62 - Acute posthemorrhagic anemia - Assessment and plan all Dx Assessment and Plan for all problems:: Discharged home Rx pain medication; continue FeSO4 OTC Follow up scheduled for incision check
== END 2020-01-06 09:00 | disposition home or self-care (01) | DRG 785 ==
PROVIDERS: Admitting Provider Nurse Practitioner Obstetrics & Gynecology; Visit Provider Nurse Practitioner Obstetrics & Gynecology
PROC: 0UT70ZZ Resection of Bilateral Fallopian Tubes, Open Approach (ICD-10-PCS; CPT 59514; principal; 2020-01-03 07:30)
PROC: 0UT70ZZ Resection of Bilateral Fallopian Tubes, Open Approach (ICD-10-PCS; CPT 58700; 2020-01-03 07:30)
DX: O34.211 Maternal care for low transverse scar from previous cesarean delivery (principal); N85.8 Other specified noninflammatory disorders of uterus; Z3A.39 39 weeks gestation of pregnancy; Z37.0 Single live birth; Z30.2 Encounter for sterilization
CPT/HCPCS: 59514; 58700; 36415; 59025; 80048; 80305; 81001; 82800; 85014; 85018; 85025; 86328; 86850; 88302; J2405

== ENCOUNTER 2020-02-16 10:14 | Emergency (ER) | payer BC, SELFPAY ==
[2020-02-16 10:20] VITALS: BP 121/73; PULSE 123; RESP 16; TEMP 36.6; O2SAT 97; BMI 29.9
--- NOTE | 2020-02-16 10:47 | HMH.EDGENADL ---
ED Disposition Clinical Impression: Dacrocystitis Qualifiers: Laterality: left Qualified Code(s): H04.302 - Unspecified dacryocystitis of left lacrimal passage Disposition: Home, Self-Care Condition on Discharge: Good Additional Instructions: Warm compresses to left eye 15 minutes 4 times a day. Clindamycin as prescribed. Ibuprofen as prescribed. Follow-up with [facility], call for appointment Dr. Pepe Olguin [facility] [address] [place] [address] Prescriptions: Clindamycin Palmitate HCl [Clindamycin Pediatric] 300 mg PO QID #800 ml Transmission Status: Pending to [facility] Ibuprofen [Ibuprofen 100mg/5ml oral susp] 400 mg PO Q6H #400 ml Transmission Status: Pending to [facility] Referrals: PCP,No [Primary Care Provider] - - Critical Care Critical Care Time: No Attestation: On 02/16/20, the high probability of a clinically significant, sudden or life threatening deterioration of the following system(s) required my full and direct attention, intervention and personal management. The time I documented below is in addition to time spent performing reported procedures but includes the following listed in this critical care notation. Medical Decision Making - Min Inquiry Pt receiving controlled substance: No Vital Signs: 02/16/20 10:20 Temperature 97.8 F Temperature Source Oral Pulse Rate [Right Radial] 123 H Respiratory Rate 16 Blood Pressure [Right Arm] 121/73 Blood Pressure Mean [Right Arm] 89 02 Sat by Pulse Oximetry 97 Oxygen Delivery Method Room Air Medical Decision Narrative: Patient requests liquid medications, has chronic difficulty swallowing pills General Adult HPI - General Chief complaint: Eye Problems Stated complaint: left swollen eye Time Seen by Provider: 02/16/20 10:40 Mode of Arrival: Ambulatory Limitations: No Limitations Description of Symptoms (Recalled from ER Triage Doc. by RN): pt presents to ed with c/o left eye swelling that began yesterday morning and has worsened today - History of Present Illness HPI narrative: Left upper eyelid pain and swelling that began yesterday. Initially was just swollen and painful and tender medially but now the entire upper eyelid is involved, although still more painful and tender medially. Did not see any bumps or definite styes. No fever. Left eye vision is just slightly blurry. No pain with extraocular movements. No trauma. No foreign bodies. No discharge from the eye. She does not wear contacts or glasses. - Related Data Home Medications Medication Instructions Recorded Confirmed Albuterol Sulfate [Albuterol 1 puff IH DAILYP PRN 12/08/19 01/17/20 Sulfate Hfa] Previous Rx's Medication Instructions Recorded Clindamycin Palmitate HCl 300 mg PO QID #800 ml 02/16/20 [Clindamycin Pediatric] Ibuprofen [Ibuprofen 100mg/5ml 400 mg PO Q6H #400 ml 02/16/20 oral susp] Allergies Allergy/AdvReac Type Severity Reaction Status Date / Time No Known Allergies Allergy Verified 02/16/20 10:[address] [facility] History - Hepatitis A Screen Drug use history?: No High risk sexual behaviors?: No History of sexually transmitted infection?: No Currently employed?: No Childcare worker?: No Do you have indoor plumbing?: Yes Do you have electricity?: Yes Attestation statement:: This patient has been screened for Hepatitis A risk factors. I have reviewed the patient's past medical history: Yes Medical History: Denies:: Diabetes Mellitus Type 1, Diabetes Mellitus Type 2 Other Medical History: Reports: Anemia Comment: HERPES Laterality Cases: Bilateral: Tonsillectomy Other Surgeries: Yes: , Diagnostic Lap, Tubal Ligation Amputation: No Fractures: No Comment: T&A---2005. WISDOM TEETH REMOVAL---2011. DX. LS---2016. P* C/S @ [place]---08/2016. 01/02/20 Repeat and Bilateral salping-x - Social History Smoking Stat
--- NOTE | 2020-02-16 10:50 | PC.NURSE ---
Addendum entered by Anu Rosario RN 02/16/20 10:52: Left 20/40. Original Note: visual acuity done. BOTH-20/40 Right 20/30 Left Patient unable to see at all due to swelling.
[2020-02-16 11:22] VITALS: BP 119/69; PULSE 111; RESP 15; TEMP 36.6; O2SAT 98
== END 2020-02-16 11:25 | disposition home or self-care (01) ==
PROVIDERS: Emergency Provider Emergency Medicine
DX: H04.302 Unspecified dacryocystitis of left lacrimal passage (principal); F17.210 Nicotine dependence, cigarettes, uncomplicated; F12.10 Cannabis abuse, uncomplicated
CPT/HCPCS: 99281

== ENCOUNTER 2020-12-02 00:30 | Emergency (ER) | payer BC, SELFPAY ==
[2020-12-02 00:30] VITALS: BP 124/81; PULSE 112; RESP 18; TEMP 36.7; O2SAT 99; BMI 32.4
[2020-12-02 01:24] VITALS: BP 00/00; PULSE 0; RESP 0; TEMP -17.7; TEMP 0
== END 2020-12-02 01:27 | disposition left against medical advice (07) ==
PROVIDERS: Emergency Provider Emergency Medicine; PCP Nurse Practitioner Family
DX: Z53.21 Procedure and treatment not carried out due to patient leaving prior to being seen by health care provider (principal)
CPT/HCPCS: 99211

== ENCOUNTER 2020-12-04 22:52 | Emergency (ER) | payer BC, SELFPAY ==
[2020-12-04 23:08] VITALS: BP 142/95; PULSE 68; RESP 18; TEMP 36.7; O2SAT 100; BMI 31.6
--- NOTE | 2020-12-04 23:24 | HMH.EDEAR ---
ED Disposition Clinical Impression: Otitis externa Qualifiers: Otitis externa type: unspecified type Chronicity: acute Laterality: right Qualified Code(s): H60.501 - Unspecified acute noninfective otitis externa, right ear Disposition: Home, Self-Care Condition on Discharge: Good Instructions: DI for Ear Pain-Adult Additional Instructions: see pcp and ent for follow up Prescriptions: levoFLOXacin [Levaquin 500mg tab] 500 mg PO DAILY #7 tab Transmission Status: Pending to [facility] Referrals: Provider,MD Nagi [Primary Care Provider] - Sami Diaz MD [Staff Physician] - - Critical Care Critical Care Time: No Attestation: On 12/04/20, the high probability of a clinically significant, sudden or life threatening deterioration of the following system(s) required my full and direct attention, intervention and personal management. The time I documented below is in addition to time spent performing reported procedures but includes the following listed in this critical care notation. Medical Decision Making - Medical Records Medical records reviewed: Yes: I reviewed the patient's medical records. - Min Inquiry Pt receiving controlled substance: No Vital Signs: 12/04/20 23:08 Temperature 98.1 F Temperature Source Oral Pulse Rate [Right Brachial] 68 Respiratory Rate 18 Blood Pressure [Right Arm] 142/95 H Blood Pressure Mean [Right Arm] 110 Blood Pressure Source [Right Arm] Automatic Cuff Blood Pressure Position [Right Arm] Sitting 02 Sat by Pulse Oximetry 100 Oxygen Delivery Method Room Air - Lab Data Lab results reviewed: Yes: I reviewed the patient's lab results. Medical Decision Narrative: rt ear canal abn with no drainage but abn exam - trial of treatment and f/u pcp and ent Ear HPI - General Chief complaint: Ear Stated complaint: R ear pain Time Seen by Provider: 12/04/20 23:25 Mode of Arrival: Family Vehicle Source of Information: Patient, Medical Record Limitations: No Limitations Description of Symptoms (Recalled from ER Triage Doc. by RN): RIGHT EAR PAIN FOR 3-4 DAYS, DIZZINESS SINCE THE PAIN STARTED; AFEBRILE, NO DRAINAGE. NO HEARING LOSS. NO RECENT SWIMMING, NO RECENT WATER IN EAR THAT SHE IS AWARE OF. DENIES SINUS ISSUES. STATES RIGHT SIDE OF NECK IS SORE AND TENDER UNDERNEATH EAR - History of Present Illness HPI Narrative: rt sided ear pain over the last few days - no drainage and no trauma- no fever - lt ear ok - Complaint: ear pain Location: right ear Duration: constant Severity: moderate Discharge from ear: no Treatment prior to arrival: none - Related Data Previous Rx's Medication Instructions Recorded levoFLOXacin [Levaquin 500mg 500 mg PO DAILY #7 tab 12/04/20 tab] Allergies Allergy/AdvReac Type Severity Reaction Status Date / Time No Known Allergies Allergy Verified 02/16/20 10:25 [facility] History - Hepatitis A Screen Drug use history?: No High risk sexual behaviors?: No History of sexually transmitted infection?: No Currently employed?: No Childcare worker?: No Do you have indoor plumbing?: Yes Do you have electricity?: Yes Attestation statement:: This patient has been screened for Hepatitis A risk factors. I have reviewed the patient's past medical history: Yes Medical History: Denies:: Diabetes Mellitus Type 1, Diabetes Mellitus Type 2 Other Medical History: Reports: Anemia Comment: HERPES Laterality Cases: Bilateral: Tonsillectomy Other Surgeries: Yes: , Diagnostic Lap, Tubal Ligation Amputation: No Fractures: No Comment: T&A---2005. WISDOM TEETH REMOVAL---2011. DX. LS---2016. P* C/S @ [facility]---08/2016. 01/02/20 Repeat and Bilateral salping-x - Social History Smoking Status: Current every day smoker Tobacco Type: cigarettes # Packs/Day (cigarettes): 1 Alcohol Intake: never Alcohol Intake Frequency:: other Substance Use Type: marijuana Occupational Status: other Housing: hous
[2020-12-04 23:48] VITALS: BP 132/70; PULSE 75; RESP 16; TEMP 36.7; O2SAT 98
== END 2020-12-04 23:50 | disposition home or self-care (01) ==
PROVIDERS: Emergency Provider Emergency Medicine
DX: H60.501 Unspecified acute noninfective otitis externa, right ear (principal)
CPT/HCPCS: 99281

== ENCOUNTER 2021-06-10 21:08 | Emergency (ER) | payer BC, SELFPAY ==
--- NOTE | 2021-06-10 21:11 | PC.NURSE ---
Evaluated pt when they called for room, d/t room availability at this time. Inspiratory wheezes noted. Room air sat 99%, HR 124, and RR 20. RR unlabored and denies dyspnea. Does report burning in throat.
[2021-06-10 22:04] VITALS: BP 116/68; PULSE 118; RESP 28; TEMP 37.1; O2SAT 97; BMI 31.8
--- NOTE | 2021-06-10 22:14 | XR_ITS ---
PROCEDURE INFORMATION: Exam: XR Chest Exam date and time: 06/10/2021 10:14 PM Age: 26 years old Clinical indication: Wheezing; Additional info: Wheezes TECHNIQUE: Imaging protocol: XR of the chest. Views: 4 or more views. COMPARISON: 1. CR XR CHEST 2V 04/16/2019 10:48 AM 2. CR CXR2 CHEST-AP VIEW ONLY 04/04/2016 11:00 PM FINDINGS: Lungs: TheThe lungs are adequately inflated. No focal consolidation. Pleural spaces: No pneumothorax or pleural effusion. Heart/Mediastinum: The cardiomediastinal silhouette has normal size and contour. Bones/joints: No displaced fracture. Intraperitoneal space: The visualized abdomen is unremarkable. IMPRESSION: No acute cardiopulmonary disease.
[2021-06-10 22:50] LABS: Microscopic, Urine URINE MICROSCOPIC (MICROSCOPIC)
[2021-06-10 22:50] LABS: Coronavirus 19, PCR Not Detected (NotDetected); Influenza A, PCR Not Detected (NotDetected); Influenza B, PCR Not Detected (NotDetected)
[2021-06-10 22:56] LABS: Basophils # 0.1 K/mm3 (0-0.2); Basophils % 0.6 % (0.1-2.0); Eosinophils # 0.2 K/mm3 (0.0-0.4); Hematocrit 35.4 % (37.0-47.0); Hemoglobin 11.4 g/dL (12.2-16.2); Lymphocytes # 0.9 K/mm3 (0.7-4.5); Lymphocytes % 10.3 % (10-50); Mean Corpuscular HGB Conc 32.1 g/dL (31.8-35.4); Mean Corpuscular Volume 84.3 fl (81-99); Mean Platelet Volume 9.9 fl (7.4-10.4); Monocytes # 0.5 K/mm3 (0.1-1.0); Monocytes % 5.2 % (1.7-9.3); Neutrophils # 7.4 K/mm3 (1.8-7.8); Neutrophils % 81.9 % (37.0-80.0); Platelet Count 272 K/mm3 (142-424); Red Cell Distribution Width 16.7 % (11.5-17.5)
[2021-06-10 22:56] LABS: Appearance,Urine CLEAR (Clear); Bilirubin,Urine Negative (Negative); Blood, Urine Negative (Negative); Color,Urine YELLOW (Yellow); Glucose,Urine (UA) Negative (Negative); Ketones,Urine 1+ (Negative); Leukocyte Esterase,Urine Negative (Negative); Nitrate,Urine Negative (Negative); Protein,Urine TRACE (Negative); Urine Pregnancy, HCG Qual. Negative (Negative)
[2021-06-10 23:01] LABS: RBC,Urine Occasional #/hpf (0-3); WBC,Urine Occasional #/hpf (0-3)
[2021-06-10 23:02] LABS: Bacteria,Urine Trace /lpf
[2021-06-10 23:09] LABS: Alanine Aminotransferase 15 U/L (12-78); Albumin Level 4.3 g/dl (3.5-5.0); Albumin/Globulin Ratio 1.5 (1.1-1.8); Alkaline Phosphatase 77 U/L (38-126); Anion Gap 11.5 mEq/L (5-15); Aspartate Amino Transferase 23 U/L (14-36); Bilirubin,Total 0.3 mg/dl (0.2-1.3); Blood Urea Nitrogen 6 mg/dl (7-17); Calcium 8.8 mg/dl (8.4-10.2); Carbon Dioxide 20 mmol/L (22.0-30.0); Chloride 106 mmol/L (98-107); Creatinine Clearance Estimated 194 mL/min (50-200); Estimated Glomerular Filt Rate 121 ml/min (>60); GFR (African American) 146 ML/MIN (>60); Globulin 2.9 g/dL (1.3-3.2); Glucose 98 mg/dl (74-100); Potassium 3.5 mmoL/L (3.5-5.1); Sodium 134 mmol/L (136-145); Total Protein,Serum 7.2 g/dl (6.3-8.2)
[2021-06-10 23:20] VITALS: PULSE 81
[2021-06-10 23:30] VITALS: PULSE 81
[2021-06-10 23:51] LABS: C-Reactive Protein 20.2 mg/L (0-4)
[2021-06-11] LABS: Erythrocyte Sedimentation Rate 25 mm/hr (0-20)
--- NOTE | 2021-06-11 00:01 | HMH.EDSOB ---
ED Disposition Clinical Impression: Vapes nicotine containing substance Reactive airway disease Qualifiers: Asthma severity: moderate Asthma persistence: persistent Asthma complication type: with acute exacerbation Qualified Code(s): J45.41 - Moderate persistent asthma with (acute) exacerbation Disposition: Home, Self-Care Condition on Discharge: Good Instructions: DI for Reactive Airway Disease-Adult Additional Instructions: use meds and see pcp for follow up Prescriptions: predniSONE [Prednisone 20mg Tab] 20 mg PO BID #10 tab Transmission Status: Pending to [facility] Referrals: Provider,Referral, [Primary Care Provider] - - Critical Care Critical Care Time: No Attestation: On 06/10/21, the high probability of a clinically significant, sudden or life threatening deterioration of the following system(s) required my full and direct attention, intervention and personal management. The time I documented below is in addition to time spent performing reported procedures but includes the following listed in this critical care notation. Medical Decision Making - Medical Records Medical records reviewed: Yes: I reviewed the patient's medical records. - Min Inquiry Pt receiving controlled substance: No Vital Signs: 06/10/21 22:04 Temperature 98.7 F Temperature Source Oral Pulse Rate [Left Brachial] 118 H Respiratory Rate 28 H Blood Pressure [Left Arm] 116/68 Blood Pressure Mean [Left Arm] 84 Blood Pressure Source [Left Arm] Manual Cuff/ Doppler Blood Pressure Position [Left Arm] Sitting 02 Sat by Pulse Oximetry 97 Oxygen Delivery Method Room Air - Lab Data Lab results reviewed: Yes: I reviewed the patient's lab results. Lab Results 06/10/21 22:20: Urine Color Yellow, Urine Appearance Clear, Urine pH 8.0, Ur Specific [place] 1.020, Urine Protein Trace, Urine Glucose (UA) Negative, Urine Ketones 1+, Urine Blood Negative, Urine Nitrate Negative, Urine Bilirubin Negative, Urine Urobilinogen 1.0, Ur Leukocyte Esterase Negative, Urine RBC Occasional, Urine WBC Occasional, Ur Squamous Epith Cells 3-5, Urine Bacteria Trace 06/10/21 22:20: Urine HCG, Qual Negative 06/10/21 22:40: WBC 9.0, RBC 4.20, Hgb 11.4 L, Hct 35.4 L, MCV 84.3, MCH 27.0, MCHC 32.1, RDW 16.7, Plt Count 272, MPV 9.9, Neut % (Auto) 81.9 H, Lymph % (Auto) 10.3, [place] % (Auto) 5.2, Eos % (Auto) 2.0, Baso % (Auto) 0.6, Neut # (Auto) 7.4, Lymph # (Auto) 0.9, [place] # (Auto) 0.5, Eos # (Auto) 0.2, Baso # (Auto) 0.1 06/10/21 22:40: Sodium 134 L, Potassium 3.5, Chloride 106, Carbon Dioxide 20 L, Anion Gap 11.5, BUN 6 L, Creatinine 0.60, Estimated Creat Clear 194, Estimated GFR 121, Est GFR ( Amer) 146, Glucose 98, Calcium 8.8, Total Bilirubin 0.3, AST 23, ALT 15, Alkaline Phosphatase 77, Total Protein 7.2, Albumin 4.3, Globulin 2.9, Albumin/Globulin Ratio 1.5 06/10/21 22:40: ESR 25 H 06/10/21 22:40: C-Reactive Protein 20.2 H 06/10/21 22:45: SARS-CoV-2 (PCR) Not detected, Influenza A Untype (PCR) Not detected, Influenza Type B (PCR) Not detected 06/10/21 23:00: Lactate 1.0 Result diagrams: 06/10/21 22:40 06/10/21 22:40 Orders (Tests/Meds): ED MEDICATIONS Generic Name Dose Route Start Last Admin Trade Name Freq PRN Reason Stop Dose Admin Sodium Chloride 1,000 mls @ 999 mls/hr 06/10/21 22:45 06/10/21 22:48 Sod Chlor 0.9% 1000ml Bag IV 06/10/21 23:45 999 mls/hr .Q1H1M KARLEE Administration Sodium Chloride 10 ml 06/10/21 22:13 Sodium Chloride 0.9% 10ml Flush Syringe IV 07/10/21 22:12 NEEDED PRN Maintain IV Site Discontinued Medications Generic Name Dose Route Start Last Admin Trade Name Freq PRN Reason Stop Dose Admin Albuterol/Ipratropium 3 ml 06/10/21 22:19 Ipratropium/Albuterol 3 Ml Neb IH 06/10/21 22:20 ONCE ONE Ketorolac Tromethamine 30 mg 06/10/21 22:47 06/10/21 22:48 Ketorolac 30mg/Ml Vial IV 06/10/21 22:48 30 mg ONCE ONE Administration Methylprednisol
[2021-06-11 00:06] LABS: Procalcitonin < 0.030 ng/mL (0.0-2.0)
[2021-06-11 00:43] VITALS: BP 121/82; PULSE 80; RESP 18; TEMP 37.1; O2SAT 97
== END 2021-06-11 00:45 | disposition home or self-care (01) ==
PROVIDERS: Emergency Provider Emergency Medicine
DX: J45.901 Unspecified asthma with (acute) exacerbation (principal); J06.9 Acute upper respiratory infection, unspecified; M25.519 Pain in unspecified shoulder; Z20.822 Contact with and (suspected) exposure to COVID-19; F17.210 Nicotine dependence, cigarettes, uncomplicated; F17.290 Nicotine dependence, other tobacco product, uncomplicated; Z79.52 Long term (current) use of systemic steroids
CPT/HCPCS: 71045; 80053; 81001; 81025; 83605; 84145; 85025; 85651; 86140; 87040; 96361; 96365; 96374; 96375; 99283; C9803; U0003; U0005

== ENCOUNTER 2021-07-24 12:57 | Emergency (ER) | payer BC, SELFPAY ==
[2021-07-24 12:58] VITALS: BP 130/82; PULSE 86; RESP 16; TEMP 36.5; O2SAT 98; BMI 29.7
--- NOTE | 2021-07-24 13:04 | CT_ITS ---
FINAL REPORT CLINICAL HISTORY: headache for 8 days, nausea/vomiting FINDINGS: Axial images of the head were obtained without contrast. Coronal reformatted images were also obtained.This study was performed with techniques to keep radiation doses as low as reasonably achievable (ALARA). Individualized dose reduction techniques using automated exposure control or adjustment of mA and/or kV according to the patient's size were employed. There is no evidence of intracranial hemorrhage or mass. The ventricular size is within normal limits. There is no evidence of shift of the midline structures. No abnormal extra axial fluid collection is identified. No skull abnormality is seen on the bone window images. There is near total opacification of the left sphenoid sinus. There is mild mucosal thickening in the other sinuses. IMPRESSION: No acute intracranial abnormality. Reviewed, Interpreted and Dictated by Francesco Nunez III, MD Transcribed by Gabino Adler Authenticated by Francesco Nunez III, MD on 07/24/2021 02:18:41 PM [facility]
--- NOTE | 2021-07-24 13:04 | HMH.EDGENADL ---
ED Disposition Clinical Impression: Migraine Qualifiers: Migraine type: with aura Status migrainosus presence: without status migrainosus Intractability: not intractable Qualified Code(s): G43.109 - Migraine with aura, not intractable, without status migrainosus Disposition: Home, Self-Care Condition on Discharge: Good Instructions: DI for Migraine, DI for Headache Additional Instructions: You have been evaluated for headache, concern for migraine or tension headache. Please try to keep a routine sleep schedule. Keep a headache journal. Tylenol and Motrin for pain. Fioricet as needed. Follow-up with your primary care doctor. Return to the emergency department at once for any new or worsening headache, vision changes, nausea, vomiting or other concerns. Prescriptions: Butalb/Acetaminophen/Caffeine [Fiorcet Tablet] 1 each PO Q8 PRN #12 tablet PRN Reason: Migraine Headache Transmission Status: Received by [facility] Referrals: Provider,Referral, MD [Primary Care Provider] - Forms: Work/School Release Time of Disposition: 15:02 - Critical Care Critical Care Time: No Attestation: On , the high probability of a clinically significant, sudden or life threatening deterioration of the following system(s) required my full and direct attention, intervention and personal management. The time I documented below is in addition to time spent performing reported procedures but includes the following listed in this critical care notation. Medical Decision Making - Medical Records Medical records reviewed: Yes: I reviewed the patient's medical records. - Min Inquiry Pt receiving controlled substance: No Vital Signs: 07/24/21 12:58 07/24/21 13:12 Temperature 97.7 F Temperature Source Oral Pulse Rate 80 Pulse Rate [Right Radial] 86 Respiratory Rate 16 Blood Pressure 130/82 Blood Pressure [Right Arm] 130/82 Blood Pressure Mean [Right Arm] 98 Blood Pressure Source [Right Arm] Automatic Cuff Blood Pressure Position [Right Arm] Sitting 02 Sat by Pulse Oximetry 98 100 Oxygen Delivery Method Room Air - Lab Data Lab Results 07/24/21 13:04: Urine HCG, Qual Negative 07/24/21 13:22: WBC 8.1, RBC 4.43, Hgb 11.7 L, Hct 36.9 L, MCV 83.3, MCH 26.4 L, MCHC 31.6 L, RDW 16.9, Plt Count 370, MPV 9.1, Neut % (Auto) 54.5, Lymph % (Auto) 34.9, [place] % (Auto) 4.5, Eos % (Auto) 4.2, Baso % (Auto) 1.9, Neut # (Auto) 4.4, Lymph # (Auto) 2.8, [place] # (Auto) 0.4, Eos # (Auto) 0.3, Baso # (Auto) 0.2 07/24/21 13:22: Sodium 140, Potassium 3.3 L, Chloride 106, Carbon Dioxide 24, Anion Gap 13.3, BUN 7, Creatinine 0.70, Estimated Creat Clear 156, Estimated GFR 101, Est GFR ( Amer) 122, Glucose 107 H, Calcium 9.0, Total Bilirubin 0.3, AST 24, ALT 21, Alkaline Phosphatase 87, Total Protein 7.6, Albumin 4.5, Globulin 3.1, Albumin/Globulin Ratio 1.5 Result diagrams: 07/24/21 13:22 07/24/21 13:22 Orders (Tests/Meds): ED MEDICATIONS Discontinued Medications Generic Name Dose Route Start Last Admin Trade Name Freq PRN Reason Stop Dose Admin Diphenhydramine HCl 12.5 mg 07/24/21 13:51 07/24/21 14:07 Diphenhydramine 50mg/Ml Vial IV 07/24/21 13:52 12.5 mg ONCE ONE Administration Lactated Ringer's 500 mls @ 999 mls/hr 07/24/21 14:00 07/24/21 14:07 Lactated Ringer's 1000 Ml Bag IV 07/24/21 14:30 999 mls/hr .Q31M KARLEE Administration Ketorolac Tromethamine 15 mg 07/24/21 13:51 07/24/21 14:07 Ketorolac 30mg/Ml Vial IV 07/24/21 13:52 15 mg ONCE ONE Administration Metoclopramide HCl 10 mg 07/24/21 13:51 07/24/21 14:07 Metoclopramide Hcl 10mg/2ml Vial IVP 07/24/21 13:52 10 mg ONCE ONE Administration Ondansetron HCl 4 mg 07/24/21 13:24 07/24/21 13:26 Ondansetron 4mg/2ml Vial IV 07/24/21 13:25 4 mg ONCE ONE Administration Medical Decision Narrative: In summary this is a 26-year-old female presenting to the emergency department with left-sided pounding headach
[2021-07-24 13:12] VITALS: BP 130/82; PULSE 80; O2SAT 100
[2021-07-24 13:13] VITALS: BMI 29.7
[2021-07-24 13:27] LABS: Urine Pregnancy, HCG Qual. Negative (Negative)
[2021-07-24 13:33] LABS: Basophils # 0.2 K/mm3 (0-0.2); Basophils % 1.9 % (0.1-2.0); Chloride 106 mmol/L (98-107); Eosinophils # 0.3 K/mm3 (0.0-0.4); Eosinophils % 4.2 % (0.1-12.0); Hematocrit 36.9 % (37.0-47.0); Hemoglobin 11.7 g/dL (12.2-16.2); Lymphocytes # 2.8 K/mm3 (0.7-4.5); Lymphocytes % 34.9 % (10-50); Mean Corpuscular HGB Conc 31.6 g/dL (31.8-35.4); Mean Corpuscular Hemoglobin 26.4 pg (27.0-31.2); Mean Corpuscular Volume 83.3 fl (81-99); Mean Platelet Volume 9.1 fl (7.4-10.4); Monocytes # 0.4 K/mm3 (0.1-1.0); Monocytes % 4.5 % (1.7-9.3); Neutrophils # 4.4 K/mm3 (1.8-7.8); Neutrophils % 54.5 % (37.0-80.0); Platelet Count 370 K/mm3 (142-424); Red Blood Count 4.43 M/mm3 (4.20-5.40); Red Cell Distribution Width 16.9 % (11.5-17.5); Sodium 140 mmol/L (136-145); White Blood Count 8.1 K/mm3 (4.8-10.8)
[2021-07-24 13:34] LABS: Potassium 3.3 mmoL/L (3.5-5.1)
[2021-07-24 13:36] LABS: Alanine Aminotransferase 21 U/L (12-78); Albumin Level 4.5 g/dl (3.5-5.0); Albumin/Globulin Ratio 1.5 (1.1-1.8); Alkaline Phosphatase 87 U/L (38-126); Anion Gap 13.3 mEq/L (5-15); Aspartate Amino Transferase 24 U/L (14-36); Bilirubin,Total 0.3 mg/dl (0.2-1.3); Blood Urea Nitrogen 7 mg/dl (7-17); Carbon Dioxide 24 mmol/L (22.0-30.0); Creatinine Clearance Estimated 156 mL/min (50-200); Estimated Glomerular Filt Rate 101 ml/min (>60); GFR (African American) 122 ML/MIN (>60); Globulin 3.1 g/dL (1.3-3.2); Total Protein,Serum 7.6 g/dl (6.3-8.2)
[2021-07-24 13:37] LABS: Glucose 107 mg/dl (74-100)
[2021-07-24 15:12] VITALS: BP 110/73; PULSE 76; RESP 16; TEMP 36.5; O2SAT 96
== END 2021-07-24 15:12 | disposition home or self-care (01) ==
PROVIDERS: Emergency Provider Emergency Medicine
DX: G43.109 Migraine with aura, not intractable, without status migrainosus (principal); F17.210 Nicotine dependence, cigarettes, uncomplicated
CPT/HCPCS: 70450; 80053; 81025; 85025; 96374; 96375; 99284; J2405

== ENCOUNTER 2021-08-16 18:10 | Emergency (ER) | payer BC, SELFPAY ==
--- NOTE | 2021-08-16 18:06 | ECG_ITS ---
APPROVED REPORT Exam: Resting ECG HR:103 bpm ECG Measurements Heart Rate 103 AXES NM 135 P 70 QRSd 85 QRS 57 QT 319 T 54 QTc 379 Conclusion SINUS TACHYCARDIA ABNORMAL RHYTHM ECG UNCONFIRMED REPORT Electronically signed by : Darshan Honeycutt MD 08/18/2021 07:55:01
[2021-08-16 18:10] VITALS: BP 113/69; PULSE 96; RESP 20; TEMP 36.7; O2SAT 100; BMI 29.9
[2021-08-16 18:14] VITALS: BMI 29.9
--- NOTE | 2021-08-16 18:15 | XR_ITS ---
PROCEDURE INFORMATION: Exam: XR Chest Exam date and time: 08/16/21 06:19 PM Age: 26 years old Clinical indication: Pain; Left-sided; Additional info: L sided chest pain TECHNIQUE: Imaging protocol: XR of the chest. Views: 1 view. COMPARISON: CR XR CHEST AP 06/10/21 10:59 PM FINDINGS: Lungs: Unremarkable. No consolidation. Pleural spaces: Unremarkable. No pleural effusion. No pneumothorax. Heart/Mediastinum: Unremarkable. No cardiomegaly. Bones/joints: Unremarkable. IMPRESSION: No acute findings.
[2021-08-16 18:30] LABS: Basophils # 0.1 K/mm3 (0-0.2); Basophils % 1.1 % (0.1-2.0); Eosinophils # 0.3 K/mm3 (0.0-0.4); Eosinophils % 3.4 % (0.1-12.0); Hematocrit 34.6 % (37.0-47.0); Lymphocytes % 30.4 % (10-50); Mean Corpuscular HGB Conc 31.8 g/dL (31.8-35.4); Mean Corpuscular Hemoglobin 26.3 pg (27.0-31.2); Mean Corpuscular Volume 82.5 fl (81-99); Mean Platelet Volume 9.5 fl (7.4-10.4); Monocytes # 0.5 K/mm3 (0.1-1.0); Monocytes % 5.1 % (1.7-9.3); Neutrophils # 5.9 K/mm3 (1.8-7.8); Platelet Count 318 K/mm3 (142-424); Red Cell Distribution Width 16.6 % (11.5-17.5); White Blood Count 9.7 K/mm3 (4.8-10.8)
[2021-08-16 18:34] LABS: Anion Gap 13.7 mEq/L (5-15); Blood Urea Nitrogen 9 mg/dl (7-17); Calcium 9.4 mg/dl (8.4-10.2); Carbon Dioxide 24 mmol/L (22.0-30.0); Chloride 105 mmol/L (98-107); Creatinine Clearance Estimated 157 mL/min (50-200); Estimated Glomerular Filt Rate 101 ml/min (>60); GFR (African American) 122 ML/MIN (>60); Glucose 85 mg/dl (74-100); Potassium 3.7 mmoL/L (3.5-5.1); Sodium 139 mmol/L (136-145)
[2021-08-16 18:46] LABS: Troponin I < 0.01 ng/ml (0.00-0.034)
--- NOTE | 2021-08-16 18:48 | HMH.EDGENADL ---
ED Disposition Clinical Impression: Nonspecific chest pain Disposition: Home, Self-Care Condition on Discharge: Good Instructions: DI for Atypical Chest Pain Referrals: Provider,Nagi, [Primary Care Provider] - Forrest Rico MD [Staff Physician] - - Critical Care Critical Care Time: No Attestation: On 08/16/21, the high probability of a clinically significant, sudden or life threatening deterioration of the following system(s) required my full and direct attention, intervention and personal management. The time I documented below is in addition to time spent performing reported procedures but includes the following listed in this critical care notation. Medical Decision Making - Medical Records Medical records reviewed: Yes: I reviewed the patient's medical records. - Min Inquiry Pt receiving controlled substance: No Vital Signs: 08/16/21 18:10 Temperature 98.0 F Temperature Source Oral Pulse Rate [Left Radial] 96 H Respiratory Rate 20 Blood Pressure [Left Arm] 113/69 Blood Pressure Mean [Left Arm] 83 Blood Pressure Source [Left Arm] Automatic Cuff Blood Pressure Position [Left Arm] Sitting 02 Sat by Pulse Oximetry 100 Oxygen Delivery Method Room Air - Lab Data Lab Results 08/16/21 18:17: WBC 9.7, RBC 4.20, Hgb 11.0 L, Hct 34.6 L, MCV 82.5, MCH 26.3 L, MCHC 31.8, RDW 16.6, Plt Count 318, MPV 9.5, Neut % (Auto) 60.0, Lymph % (Auto) 30.4, [place]ake % (Auto) 5.1, Eos % (Auto) 3.4, Baso % (Auto) 1.1, Neut # (Auto) 5.9, Lymph # (Auto) 3.0, [place] # (Auto) 0.5, Eos # (Auto) 0.3, Baso # (Auto) 0.1 08/16/21 18:17: Sodium 139, Potassium 3.7, Chloride 105, Carbon Dioxide 24, Anion Gap 13.7, BUN 9, Creatinine 0.70, Estimated Creat Clear 157, Estimated GFR 101, Est GFR ( Amer) 122, Glucose 85, Calcium 9.4, Troponin I < 0.01 Result diagrams: 08/16/21 18:17 08/16/21 18:17 Orders (Tests/Meds): ED MEDICATIONS Generic Name Dose Route Start Last Admin Trade Name Freq PRN Reason Stop Dose Admin Sodium Chloride 10 ml 08/16/21 18:15 Sodium Chloride 0.9% 10ml Flush Syringe IV 09/15/21 18:14 NEEDED PRN Maintain IV Site ORDERS Category Date Time Status Troponin I Q3H Lab 08/16/21 21:15 Ordered Troponin I Q3H Lab 08/17/21 00:15 Ordered - Radiology Data #1 Image(s): Chest Image Reviewed: Yes I reviewed the patient's radiology results, Yes I reviewed the patient's radiology image, Yes I have reviewed radiologist's interpretation Preliminary Findings: Normal/NAD - ECG Data Tracing #1 I reviewed this ECG and interpreted as documented below: ECG initial impression date: 08/16/21 ECG initial impression time: 18:06 ECG normal with no acute: arrhythmias, ischemia, conduction abnormalities, chamber hypertrophy Arrhythmias present: sinus tach - Reevaluation(s) Time: 19:07 Reevaluation #1: On reevaluation, patient remains pain-free. Chest x-ray unremarkable. Troponin negative. Patient needs to take her medications prescribed by her oral surgeon. Given strict return precautions. He is to follow-up with PCP in 48 hours. Verbalized understanding. - JENNIFER Score for Non-Stemi Age of Patient: <30 years old Heart Rate: 90-109 bpm Systolic Blood Pressure: 100-119 mmHg Serum Creatinine: <0.40 mg/dl CHF Killip Class: I-No CHF Other Risk Factors: None Non-Stemi Risk Score: 59 Risk Stratification: 1-108 = Low Risk Medical Decision Narrative: 26-year-old female presented to the emergency department with some chest discomfort. Patient is currently chest pain-free at this time. Do believe is likely anxiety reaction due to recent procedure. He is low risk for acute coronary syndrome based on heart score. Work-up initiated. General Adult HPI - General Chief complaint: PAIN Stated complaint: chest pain Time Seen by Provider: 08/16/21 18:15 Mode of Arrival: Wheelchair Limitations: No Limitations Description of Symptoms (Recalled from ER Triage Doc. by RN)
[2021-08-16 19:26] VITALS: BP 118/72; PULSE 99; RESP 16; TEMP 36.6; O2SAT 99
== END 2021-08-16 19:29 | disposition home or self-care (01) ==
PROVIDERS: Emergency Provider Emergency Medicine
DX: R07.9 Chest pain, unspecified (principal); Z72.0 Tobacco use; D64.9 Anemia, unspecified
CPT/HCPCS: 71045; 80048; 84484; 85025; 93005; 99284

== ENCOUNTER 2021-08-24 11:02 | Emergency (ER) | payer BC, SELFPAY ==
--- NOTE | 2021-08-24 11:02 | ECG_ITS ---
APPROVED REPORT Exam: Resting ECG HR:97 bpm ECG Measurements Heart Rate 97 AXES TN 143 P 74 QRSd 88 QRS 60 QT 328 T 43 QTc 383 Conclusion SINUS RHYTHM WITH MARKED SINUS ARRHYTHMIA BORDERLINE ECG UNCONFIRMED REPORT Electronically signed by : Darshan Honeycutt MD 08/25/2021 16:01:22
[2021-08-24 11:06] VITALS: BP 119/80; PULSE 108; RESP 20; TEMP 36.4; O2SAT 98; BMI 29.7
--- NOTE | 2021-08-24 11:08 | XR_ITS ---
FINAL REPORT CLINICAL HISTORY: chest pain COMPARISON: August 16, 2021 FINDINGS: Two views of the chest were obtained. The heart size and pulmonary vascularity are within normal limits. The mediastinum is normal. No acute pulmonary abnormality is identified. There is no pneumothorax. The bony thorax is intact. IMPRESSION: No active cardiopulmonary disease. Reviewed, Interpreted and Dictated by Francesco Nunez III, MD Transcribed by Gabino Adler Authenticated by Francesco Nunez III, MD on 08/24/2021 12:33:56 PM [facility]
--- NOTE | 2021-08-24 11:18 | HMH.EDGENADL ---
ED Disposition Clinical Impression: Hemoptysis, Atypical chest pain Lipoma Qualifiers: Lipoma location: trunk Qualified Code(s): D17.1 - Benign lipomatous neoplasm of skin and subcutaneous tissue of trunk Disposition: Home, Self-Care Condition on Discharge: Good Instructions: DI for Atypical Chest Pain Additional Instructions: Follow-up with your primary care provider, call for appointment. Additional instructions for CHEST PAIN: See your physician as soon as possible for further evaluation. Return immediately if worsening chest pain, vomiting, shortness of breath, fever, persistent coughing of blood. Referrals: Provider,Referral, [Primary Care Provider] - - Critical Care Critical Care Time: No Attestation: On 08/24/21, the high probability of a clinically significant, sudden or life threatening deterioration of the following system(s) required my full and direct attention, intervention and personal management. The time I documented below is in addition to time spent performing reported procedures but includes the following listed in this critical care notation. Medical Decision Making - Medical Records Medical records reviewed: Yes: I reviewed the patient's medical records. MR Comment: Reviewed emergency department note from 08/16/2021 for chest pain. Work-up negative. - Min Inquiry Pt receiving controlled substance: No Vital Signs: 08/24/21 11:06 08/24/21 11:30 Temperature 97.5 F L Temperature Source Oral Pulse Rate 80 Pulse Rate [Radial] 108 H Respiratory Rate 20 16 Blood Pressure 106/86 L Blood Pressure [Right Arm] 119/80 Blood Pressure Mean 90 Blood Pressure Mean [Right Arm] 93 Blood Pressure Position [Right Arm] Sitting 02 Sat by Pulse Oximetry 98 98 Oxygen Delivery Method Room Air Room Air - Lab Data Lab Results 08/24/21 11:08: WBC 8.3, RBC 4.56, Hgb 12.0 L, Hct 36.7 L, MCV 80.5 L, MCH 26.2 L, MCHC 32.6, RDW 15.2, Plt Count 344, MPV 8.7, Neut % (Auto) 69.2, Lymph % (Auto) 22.8, Henry % (Auto) 4.4, Eos % (Auto) 2.7, Baso % (Auto) 0.9, Neut # (Auto) 5.7, Lymph # (Auto) 1.9, Henry # (Auto) 0.4, Eos # (Auto) 0.2, Baso # (Auto) 0.1 08/24/21 11:08: Sodium 139, Potassium 3.6, Chloride 103, Carbon Dioxide 26, Anion Gap 13.6, BUN 7, Creatinine 0.60, Estimated Creat Clear 182, Estimated GFR 121, Est GFR ( Amer) 146, Glucose 98, Calcium 9.4, Total Bilirubin 0.1 L, Direct Bilirubin 0.0, Conjugated Bilirubin 0.0, Indirect Bilirubin 0.1, Unconjugated Bilirubin 0.3, AST 27, ALT 18, Alkaline Phosphatase 60, Troponin I < 0.01, Total Protein 7.2, Albumin 4.4 08/24/21 11:08: D-Dimer 0.57 H 08/24/21 11:08: Serum HCG, Qual Negative Result diagrams: 08/24/21 11:08 08/24/21 11:08 Orders (Tests/Meds): ED MEDICATIONS Generic Name Dose Route Start Last Admin Trade Name Freq PRN Reason Stop Dose Admin Sodium Chloride 10 ml 08/24/21 11:16 08/24/21 12:06 Sodium Chloride 0.9% 10ml Flush Syringe IV 09/23/21 11:15 10 ml NEEDED PRN Administration Maintain IV Site Discontinued Medications Generic Name Dose Route Start Last Admin Trade Name Freq PRN Reason Stop Dose Admin Iopamidol 100 ml 08/24/21 12:05 08/24/21 12:07 Iopamidol-370 (76%);100ml Bottle IV 08/24/21 12:06 100 ml ONCE ONE Administration Sodium Chloride 20 ml 08/24/21 12:05 08/24/21 12:07 0.9% Sodium Chloride 20ml Vial IV 08/24/21 12:06 20 ml ONCE ONE Administration Sodium Chloride 20 ml 08/24/21 12:05 08/24/21 12:07 0.9% Sodium Chloride 20ml Vial IV 08/24/21 12:06 20 ml ONCE ONE Administration Sodium Chloride 10 ml 08/24/21 12:06 Sodium Chloride 0.9% 10ml Syr (Rad Only) IV 08/24/21 12:07 ONCE ONE ORDERS Category Date Time Status Troponin I Q3H Lab 08/24/21 14:15 Ordered Troponin I Q3H Lab 08/24/21 17:15 Ordered - Radiology Data #1 Image(s): Chest Image Reviewed: Yes I reviewed the patient's radiology image, Yes I have reviewed radio
[2021-08-24 11:20] LABS: Basophils # 0.1 K/mm3 (0-0.2); Basophils % 0.9 % (0.1-2.0); Eosinophils # 0.2 K/mm3 (0.0-0.4); Eosinophils % 2.7 % (0.1-12.0); Hematocrit 36.7 % (37.0-47.0); Lymphocytes # 1.9 K/mm3 (0.7-4.5); Lymphocytes % 22.8 % (10-50); Mean Corpuscular HGB Conc 32.6 g/dL (31.8-35.4); Mean Corpuscular Hemoglobin 26.2 pg (27.0-31.2); Mean Corpuscular Volume 80.5 fl (81-99); Mean Platelet Volume 8.7 fl (7.4-10.4); Monocytes # 0.4 K/mm3 (0.1-1.0); Monocytes % 4.4 % (1.7-9.3); Neutrophils # 5.7 K/mm3 (1.8-7.8); Neutrophils % 69.2 % (37.0-80.0); Platelet Count 344 K/mm3 (142-424); Red Blood Count 4.56 M/mm3 (4.20-5.40); Red Cell Distribution Width 15.2 % (11.5-17.5); White Blood Count 8.3 K/mm3 (4.8-10.8)
--- NOTE | 2021-08-24 11:21 | PC.NURSE ---
SANDER ARANGO at
--- NOTE | 2021-08-24 11:25 | CT_ITS ---
FINAL REPORT TECHNIQUE: Then section axial CT images of the chest were obtained with contrast. Three-D reformatted images were also obtained.This study was performed with techniques to keep radiation doses as low as reasonably achievable (ALARA). Individualized dose reduction techniques using automated exposure control or adjustment of mA and/or kV according to the patient''s size were employed. CLINICAL HISTORY: hemoptysis, chest pain FINDINGS: There is no evidence of pulmonary embolism. There is no evidence of thoracic aortic aneurysm or dissection. There is no evidence of mediastinal or hilar mass or adenopathy. There is a 6 mm nonspecific ground-glass opacity in the right lower lobe on image 62 that is likely inflammatory. Limited images of the upper abdomen are unremarkable. IMPRESSION: 1. No evidence of pulmonary embolism. 2. Nonspecific 6 mm right lower lobe ground-glass opacity, likely inflammatory. Reviewed, Interpreted and Dictated by Francesco Nunez III, MD Transcribed by Gabino Adler Authenticated by Francesco Nunez III, MD on 08/24/2021 01:37:26 PM [facility]
[2021-08-24 11:27] LABS: Alanine Aminotransferase 18 U/L (12-78); Albumin Level 4.4 g/dl (3.5-5.0); Alkaline Phosphatase 60 U/L (38-126); Anion Gap 13.6 mEq/L (5-15); Aspartate Amino Transferase 27 U/L (14-36); Bilirubin,Unconjugated 0.3 mg/dL (0.0-1.1); Blood Urea Nitrogen 7 mg/dl (7-17); Calcium 9.4 mg/dl (8.4-10.2); Carbon Dioxide 26 mmol/L (22.0-30.0); Chloride 103 mmol/L (98-107); Creatinine Clearance Estimated 182 mL/min (50-200); Estimated Glomerular Filt Rate 121 ml/min (>60); GFR (African American) 146 ML/MIN (>60); Glucose 98 mg/dl (74-100); Potassium 3.6 mmoL/L (3.5-5.1); Sodium 139 mmol/L (136-145); Total Protein,Serum 7.2 g/dl (6.3-8.2)
[2021-08-24 11:30] VITALS: BP 106/86; PULSE 80; RESP 16; O2SAT 98
[2021-08-24 11:32] LABS: D-Dimer 0.57 ug/mL (0.0-0.5)
[2021-08-24 11:33] LABS: Bilirubin,Indirect 0.1 mg/dL (0.0-0.9); Bilirubin,Total 0.1 mg/dl (0.2-1.3)
[2021-08-24 11:38] LABS: HCG Qualitative, Serum Negative (Negative)
[2021-08-24 11:43] LABS: Troponin I < 0.01 ng/ml (0.00-0.034)
--- NOTE | 2021-08-24 11:56 | PC.NURSE ---
return from ct
--- NOTE | 2021-08-24 11:58 | PC.NURSE ---
pt to ct
[2021-08-24 12:32] VITALS: BP 130/97; PULSE 91; RESP 18; O2SAT 99
--- NOTE | 2021-08-24 13:55 | PC.NURSE ---
ER going over test results with pt
[2021-08-24 14:03] VITALS: BP 123/72; PULSE 78; RESP 16; TEMP 36.6; O2SAT 98
== END 2021-08-24 14:04 | disposition home or self-care (01) ==
PROVIDERS: Emergency Provider Emergency Medicine
DX: R04.2 Hemoptysis (principal); R07.89 Other chest pain; D17.1 Benign lipomatous neoplasm of skin and subcutaneous tissue of trunk; F17.210 Nicotine dependence, cigarettes, uncomplicated
CPT/HCPCS: 71046; 71275; 80048; 80076; 84484; 84703; 85025; 85378; 93005; 99284; Q9967

== ENCOUNTER → 2021-11-20 14:43 | Outpatient (CLI) | payer BC, SELFPAY ==
--- NOTE | 2021-11-20 14:44 | US_ITS ---
FINAL REPORT CLINICAL HISTORY: pelvic pain and dyspareunia FINDINGS: Transvaginal sonographic images of the pelvis were obtained. The uterus measures 9.9 x 4.7 x 4.9 cm. The endometrium is 13 mm. There is a hypoechoic area along the anterior/inferior uterus measuring 1.4 cm. It is uncertain if this represents a fibroid or possibly sequela of prior . The right ovary measures 2.7 x 2.7 x 1.7 cm. The left ovary measures 2.9 x 3.0 x 2.9 cm. There is a 2.2 cm left ovarian cyst. A small amount of pelvic free fluid is identified. IMPRESSION: Left ovarian cyst. Hypoechoic area along the anterior/inferior uterus, may represent a fibroid or possibly sequela of prior surgery. Reviewed, Interpreted and Dictated by Francesco Nunez III, MD Transcribed by Vee Acuna Authenticated and [facility]
== END ==
PROVIDERS: PCP Nurse Practitioner Obstetrics & Gynecology; Visit Provider Nurse Practitioner Obstetrics & Gynecology
DX: R10.2 Pelvic and perineal pain (principal); N94.10 Unspecified dyspareunia
CPT/HCPCS: 76830

== ENCOUNTER 2021-11-24 23:21 | Emergency (ER) | payer BC, SELFPAY ==
[2021-11-24 23:42] VITALS: BP 119/70; PULSE 105; RESP 18; TEMP 37.5; O2SAT 97; BMI 29.9
--- NOTE | 2021-11-24 23:50 | XR_ITS ---
PROCEDURE INFORMATION: Exam: XR Chest Exam date and time: 11/25/2021 12:02 AM Age: 26 years old Clinical indication: Cough TECHNIQUE: Imaging protocol: Radiologic exam of the chest. Views: 2 views. COMPARISON: CR XR CHEST 2V 08/24/2021 11:49 AM FINDINGS: Lungs: The lungs are adequately inflated. No focal consolidation. Pleural spaces: No pneumothorax or pleural effusion. Heart/Mediastinum: The cardiomediastinal silhouette has normal size and contour. Bones/joints: No displaced fracture. Intraperitoneal space: The visualized abdomen is unremarkable. IMPRESSION: No acute cardiopulmonary disease.
[2021-11-25] LABS: Basophils # 0.1 K/mm3 (0-0.2); Basophils % 0.8 % (0.1-2.0); Eosinophils # 0.1 K/mm3 (0.0-0.4); Eosinophils % 1.3 % (0.1-12.0); Hematocrit 35.9 % (37.0-47.0); Hemoglobin 11.4 g/dL (12.2-16.2); Lymphocytes # 0.6 K/mm3 (0.7-4.5); Lymphocytes % 8.8 % (10-50); Mean Corpuscular HGB Conc 31.8 g/dL (31.8-35.4); Mean Corpuscular Hemoglobin 26.1 pg (27.0-31.2); Mean Corpuscular Volume 81.9 fl (81-99); Mean Platelet Volume 9.9 fl (7.4-10.4); Monocytes # 0.7 K/mm3 (0.1-1.0); Monocytes % 9.9 % (1.7-9.3); Neutrophils # 5.6 K/mm3 (1.8-7.8); Neutrophils % 79.2 % (37.0-80.0); Platelet Count 287 K/mm3 (142-424); Red Blood Count 4.38 M/mm3 (4.20-5.40); Red Cell Distribution Width 16.5 % (11.5-17.5)
[2021-11-25 00:07] LABS: HCG Qualitative, Serum Negative (Negative)
[2021-11-25 00:11] LABS: Alanine Aminotransferase 17 U/L (12-78); Albumin Level 4.4 g/dl (3.5-5.0); Albumin/Globulin Ratio 1.5 (1.1-1.8); Alkaline Phosphatase 80 U/L (38-126); Amylase 57 U/L (30-110); Anion Gap 12.4 mEq/L (5-15); Aspartate Amino Transferase 24 U/L (14-36); Blood Urea Nitrogen 7 mg/dl (7-17); Calcium 8.7 mg/dl (8.4-10.2); Carbon Dioxide 21 mmol/L (22.0-30.0); Chloride 106 mmol/L (98-107); Creatinine Clearance Estimated 157 mL/min (50-200); Estimated Glomerular Filt Rate 101 ml/min (>60); GFR (African American) 122 ML/MIN (>60); Glucose 81 mg/dl (74-100); Influenza A, PCR Not Detected (NotDetected); Influenza B, PCR Not Detected (NotDetected); Lipase 51 U/L (23-300); Magnesium 1.4 mg/dl (1.6-2.3); Potassium 3.4 mmoL/L (3.5-5.1); Sodium 136 mmol/L (136-145); Total Protein,Serum 7.4 g/dl (6.3-8.2)
[2021-11-25 00:13] LABS: Bilirubin,Total < 0.1 mg/dl (0.2-1.3)
[2021-11-25 00:17] LABS: Strep Scrn Group A (Rapid) Negative (Negative)
--- NOTE | 2021-11-25 00:19 | CT_ITS ---
PROCEDURE INFORMATION: Exam: CT Abdomen And Pelvis Without Contrast Exam date and time: 11/25/2021 12:30 AM Age: 26 years old Clinical indication: Abdominal pain; Flank; Left; Additional info: Flank pain TECHNIQUE: Imaging protocol: Computed tomography of the abdomen and pelvis without contrast. Radiation optimization: All CT scans at this facility use at least one of these dose optimization techniques: automated exposure control; mA and/or kV adjustment per patient size (includes targeted exams where dose is matched to clinical indication); or iterative reconstruction. COMPARISON: US TRANSVAGINAL 11/20/2021 3:20 PM FINDINGS: Lungs: Lung bases are clear. Pleural spaces: No pleural effusion. Heart: The visualized heart is normal. No pericardial effusion. Liver: The liver has normal size and contour. Gallbladder and bile ducts: The gallbladder is unremarkable. No biliary ductal dilatation. Pancreas: The pancreas is unremarkable. Spleen: The spleen is unremarkable. Adrenal glands: The adrenal glands are normal. Kidneys and ureters: The kidneys have expected non-contrast appearance without hydronephrosis. The ureters have normal course and caliber without stone. Stomach and bowel: The stomach is normal. The small and large bowel have normal course and caliber. No evidence of bowel obstruction. No pericolonic inflammatory stranding. Appendix: No evidence of appendicitis. Intraperitoneal space: Small volume free fluid within the pelvis. No free intraperitoneal air. Vasculature: No abdominal aortic aneurysm. Lymph nodes: No enlarged lymph nodes. Urinary bladder: The bladder is normal without focal wall thickening. Reproductive: Mild prominence of the left ovary comparison to the right without definitive mass. Bones/joints: No acute fracture. Soft tissues: Unremarkable. IMPRESSION: 1. Mild prominence of the left ovary in comparison to the right; recommend correlation history/physical exam and consider further evaluation ultrasound if concern for torsion. 2. No obstructive uropathy. 3. Other findings as above.
--- NOTE | 2021-11-25 00:20 | HMH.EDBACK ---
ED Disposition Clinical Impression: COVID-19 Disposition: Home, Self-Care Condition on Discharge: Good Instructions: DI for COVID-19 (Suspected or Confirmed ) Additional Instructions: fluids and see pcp as needed Referrals: Provider,Referral, [Primary Care Provider] - - Critical Care Critical Care Time: No Attestation: On 11/24/21, the high probability of a clinically significant, sudden or life threatening deterioration of the following system(s) required my full and direct attention, intervention and personal management. The time I documented below is in addition to time spent performing reported procedures but includes the following listed in this critical care notation. Medical Decision Making - Medical Records Medical records reviewed: Yes: I reviewed the patient's medical records. - Min Inquiry Pt receiving controlled substance: No Vital Signs: 11/24/21 23:42 Temperature 99.5 F Temperature Source Oral Pulse Rate [Apical] 105 H Respiratory Rate 18 Blood Pressure [Right Arm] 119/70 Blood Pressure Mean [Right Arm] 86 Blood Pressure Source [Right Arm] Automatic Cuff Blood Pressure Position [Right Arm] Sitting 02 Sat by Pulse Oximetry 97 Oxygen Delivery Method Room Air - Lab Data Lab results reviewed: Yes: I reviewed the patient's lab results. Lab Results 11/24/21 23:40: WBC 7.0, RBC 4.38, Hgb 11.4 L, Hct 35.9 L, MCV 81.9, MCH 26.1 L, MCHC 31.8, RDW 16.5, Plt Count 287, MPV 9.9, Neut % (Auto) 79.2, Lymph % (Auto) 8.8 L, [place] % (Auto) 9.9 H, Eos % (Auto) 1.3, Baso % (Auto) 0.8, Neut # (Auto) 5.6, Lymph # (Auto) 0.6 L, [place] # (Auto) 0.7, Eos # (Auto) 0.1, Baso # (Auto) 0.1, ESR 18 11/24/21 23:40: Sodium 136, Potassium 3.4 L, Chloride 106, Carbon Dioxide 21 L, Anion Gap 12.4, BUN 7, Creatinine 0.70, Estimated Creat Clear 157, Estimated GFR 101, Est GFR ( Amer) 122, Glucose 81, Calcium 8.7, Total Bilirubin < 0.1 L, AST 24, ALT 17, Alkaline Phosphatase 80, C-Reactive Protein 9.0 H, Total Protein 7.4, Albumin 4.4, Globulin 3.0, Albumin/Globulin Ratio 1.5, Amylase 57 11/24/21 23:40: Serum HCG, Qual Negative 11/24/21 23:40: Magnesium 1.4 L, Lipase 51, Procalcitonin 0.042 11/24/21 23:40: Group A Strep Rapid Negative 11/24/21 23:40: SARS-CoV-2 (PCR) Detected A, Influenza A Untype (PCR) Not detected, Influenza Type B (PCR) Not detected 11/25/21 01:14: Urine Color Yellow, Urine Appearance Sl cloudy, Urine pH 6.0, Ur Specific [place] >= 1.030, Urine Protein Negative, Urine Glucose (UA) Negative, Urine Ketones 2+, Urine Blood Negative, Urine Nitrate Negative, Urine Bilirubin Negative, Urine Urobilinogen 0.2, Ur Leukocyte Esterase Negative, Urine WBC Occasional, Ur Squamous Epith Cells 10-20, Urine Mucus 1+ Result diagrams: 11/24/21 23:40 11/24/21 23:40 Orders (Tests/Meds): ED MEDICATIONS Generic Name Dose Route Start Last Admin Trade Name Freq PRN Reason Stop Dose Admin Sodium Chloride 1,000 mls @ 999 mls/hr 11/24/21 23:45 11/25/21 00:26 Sod Chlor 0.9% 1000ml Bag IV 11/25/21 00:45 999 mls/hr .Q1H1M KARLEE Administration Sodium Chloride 1,000 mls @ 999 mls/hr 11/25/21 01:15 11/25/21 01:16 Sod Chlor 0.9% 1000ml Bag IV 11/25/21 02:15 999 mls/hr .Q1H1M KARLEE Administration Discontinued Medications Generic Name Dose Route Start Last Admin Trade Name Freq PRN Reason Stop Dose Admin Ketorolac Tromethamine 30 mg 11/24/21 23:51 11/25/21 00:26 Ketorolac 30mg/Ml Vial IV 11/24/21 23:52 30 mg ONCE ONE Administration Methylprednisolone Sodium Succinate 125 mg 11/25/21 00:42 11/25/21 00:45 Methylprednisolone Sod Succ 125mg Vial IV 11/25/21 00:43 125 mg ONCE ONE Administration Ondansetron HCl 4 mg 11/24/21 23:51 11/25/21 00:26 Ondansetron 4mg/2ml Vial IV 11/24/21 23:52 4 mg ONCE ONE Administration ORDERS Category Date Time Status Strep Screen Confirmation Stat Micro 11/24/21 23:40 Received - Radiology Data #1 Image(s): Chest Imag
[2021-11-25 00:27] LABS: Coronavirus 19, PCR Detected (NotDetected); Procalcitonin 0.042 ng/mL (0.0-2.0)
[2021-11-25 00:28] LABS: Erythrocyte Sedimentation Rate 18 mm/hr (0-20)
[2021-11-25 01:21] LABS: Appearance,Urine SL CLOUDY (Clear); Blood, Urine Negative (Negative); Color,Urine YELLOW (Yellow); Glucose,Urine (UA) Negative (Negative); Ketones,Urine 2+ (Negative); Leukocyte Esterase,Urine Negative (Negative); Microscopic, Urine URINE MICROSCOPIC (MICROSCOPIC); Nitrate,Urine Negative (Negative); Protein,Urine Negative (Negative); Specific Gravity, Urine >= 1.030 (1.005-1.030); Urobilinogen,Urine 0.2 EU/dl (0.2)
[2021-11-25 01:25] LABS: Bilirubin,Urine Negative (Negative); Mucus,Urine 1+ /lpf; WBC,Urine Occasional #/hpf (0-3)
[2021-11-25 01:45] VITALS: BP 115/70; PULSE 76; RESP 18; TEMP 36.6; O2SAT 99
== END 2021-11-25 01:55 | disposition home or self-care (01) ==
PROVIDERS: Emergency Provider Emergency Medicine
DX: U07.1 COVID-19 (principal); F17.210 Nicotine dependence, cigarettes, uncomplicated
CPT/HCPCS: 71046; 74176; 80053; 81001; 82150; 83690; 83735; 84145; 84703; 85025; 85651; 86140; 87430; 96361; 96374; 96375; 99284; C9803; J2405; U0003; U0005

== ENCOUNTER 2022-03-13 11:32 | Emergency (ER) | payer BC, SELFPAY ==
[2022-03-13 11:42] VITALS: BP 129/86; PULSE 88; O2SAT 97
[2022-03-13 11:43] VITALS: BP 129/86; PULSE 103; RESP 20; TEMP 36.8; O2SAT 97; BMI 29.9
--- NOTE | 2022-03-13 11:57 | ECG_ITS ---
APPROVED REPORT Exam: Resting ECG HR:86 bpm ECG Measurements Heart Rate 86 AXES WI 145 P 70 QRSd 83 QRS 71 QT 355 T 64 QTc 398 Conclusion SINUS RHYTHM NORMAL ECG UNCONFIRMED REPORT Electronically signed by : Darshan Honeycutt MD 03/13/2022 21:52:28
[2022-03-13 12:00] VITALS: BP 119/68; PULSE 84; O2SAT 98
--- NOTE | 2022-03-13 12:19 | HMH.EDGENADL ---
Discharge Plan Disposition Patient Disposition: Left Against Medical Advice Condition: Good Prescriptions Prescriptions: No Action phentermine 37.5 mg tablet 37.5 mg PO DAILY Qty: 30 0RF albuterol sulfate 6.7 GM HFA aerosol inhaler 6.7 gm IH Q4HP PRN (Reason: asthma) Referrals Follow up/Referrals: Provider,Referral, [Primary Care Provider] - See instructions Clinical Impressions Clinical Impression: Left against medical advice Discharge ED Provider: Radha Degroot General Adult HPI General Chief complaint: Dizziness Stated complaint: dizzy, blurry eye vision Time Seen by Provider: 03/13/22 11:35 Mode of Arrival: Ambulatory Source of Information: Patient Limitations: No Limitations Description of Symptoms (Recalled from ER Triage Doc. by RN): pt to ed c/o dizziness x1 week. pt reports heard palpitations intermittently but denies chest pain. pt denies soa. History of Present Illness HPI narrative: Clayton is a 21 yo female w/ PMH for anxiety presenting to the ED for dizziness described as lightheadness and heart palpitaitons for 1 week. She denies chest pain or dyspnea. No fevers, cough or other infectious sx. Denies any recent trauma to head. No focal neurological deficits. MD complaint: dizziness and heart palpitations Onset (ago): week(s) Related Data Home Medications Medication Instructions Recorded Confirmed albuterol sulfate 90 mcg/actuation 6.7 gm inhalation Q4HP PRN asthma 11/25/21 12/19/21 aerosol inhaler Previous Rx's Medication Instructions Recorded phentermine 37.5 mg tablet 37.5 mg PO DAILY Weight loss #30 12/19/21 tabs Allergies Allergy/AdvReac Type Severity Reaction Status Date / Time No Known Allergies Allergy Verified 12/19/21 11:04 [facility] Disclaimer: The information contained in this section may have been updated after the patient was seen, as this information can be updated by other users. Social History Smoking Status: Never smoker alcohol intake: never substance use type: marijuana current occupational status: other Travel in the last 8 weeks: None household members: spouse and children housing: house ROS Obtained: Yes All systems reviewed & no additional complaints except as documented Physical Exam General General appearance: alert and in no apparent distress Head Head exam: atraumatic and normal inspection Eye Eye exam: Present normal appearance and EOMI ENT ENT exam: Present normal exam and mucous membranes moist Neck Neck exam: Present normal inspection and full ROM Chest Chest inspection: Present normal inspection and symmetric chest wall rise Respiratory Respiratory exam: Present normal lung sounds bilaterally Cardiovascular Cardiovascular exam: Present regular rate and normal rhythm Abdominal Exam Abdominal exam: Present soft and normal bowel sounds Extremities Exam Extremities exam: Present normal inspection and full ROM Back Exam Back exam: Present normal inspection and full ROM Neurological Exam Neurological exam: Present alert and oriented X3 Psychiatric Psychiatric exam: Present normal affect and anxious Skin Skin exam: Present warm and normal color Medical Decision Making Medical Records Medical records reviewed: Yes I reviewed the patient's medical records. Min Inquiry Pt receiving controlled substance: No Vital Signs: 03/13/22 11:43 03/13/22 11:42 03/13/22 12:00 Temperature 98.3 F Temperature Source Oral Pulse Rate 88 84 Pulse Rate [Left Radial] 103 H Respiratory Rate 20 Blood Pressure 129/86 119/68 Blood Pressure [Right Arm] 129/86 Blood Pressure Mean 96 85 Blood Pressure Mean [Right Arm] 100 02 Sat by Pulse Oximetry 97 97 98 Oxygen Delivery Method Room Air 03/13/22 12:30 03/13/22 13:00 03/13/22 13:30 Temperature 98.3 F Temperature Source Pulse Rate 71 70 70 Pulse Rate [Left Radial] Respiratory Rate
[2022-03-13 12:30] VITALS: BP 111/59; PULSE 71; O2SAT 97
[2022-03-13 13:00] VITALS: BP 136/81; PULSE 70; O2SAT 97
[2022-03-13 13:30] VITALS: BP 136/81; PULSE 70; RESP 18; TEMP 36.8; O2SAT 97
--- NOTE | 2022-03-13 13:30 | PC.NURSE ---
Ct went to pt room to get her for her scan. Pt is not in room and when the ER was checked pt was not present
== END 2022-03-13 13:31 | disposition left against medical advice (07) ==
PROVIDERS: Emergency Provider Student in an Organized Health Care Education/Training Program
DX: R42 Dizziness and giddiness (principal); Z53.20 Procedure and treatment not carried out because of patient's decision for unspecified reasons
CPT/HCPCS: 93005; 99283

== ENCOUNTER 2022-04-10 09:42 | Emergency (ER) | payer BC, SELFPAY ==
[2022-04-10 09:52] VITALS: BP 120/85; PULSE 74; RESP 18; TEMP 36.4; O2SAT 99; BMI 29.9
[2022-04-10 10:06] LABS: Microscopic, Urine URINE MICROSCOPIC (MICROSCOPIC)
--- NOTE | 2022-04-10 10:07 | HMH.EDGENADL ---
Discharge Plan Disposition Patient Disposition: Left Against Medical Advice Condition: Fair Prescriptions Prescriptions: No Action phentermine 37.5 mg tablet 37.5 mg PO DAILY Qty: 30 0RF albuterol sulfate 6.7 GM HFA aerosol inhaler 6.7 gm IH Q4HP PRN (Reason: asthma) Referrals Follow up/Referrals: Provider,Referral, [Primary Care Provider] - See instructions Clinical Impressions Clinical Impression: Left against medical advice Discharge ED Provider: Lora Alex General Adult HPI General Chief complaint: Dizziness Stated complaint: dizzy, vomiting Time Seen by Provider: 04/10/22 09:53 Mode of Arrival: Ambulatory Source of Information: Patient Limitations: No Limitations Description of Symptoms (Recalled from ER Triage Doc. by RN): pt comes in with c/o dizziness that began last night, and vomitting that began this morning. no abd pain. pt states that she has never felt like this before. History of Present Illness HPI narrative: This patient is a 27-year-old female with history of anemia, migraine, and asthma presented to the emergency department for evaluation with concern for dizziness. Patient reports that since last night, she has been feeling very lightheaded and has had some sensation of the room spinning. she also notes that she had nausea and vomiting with nonbloody nonbilious emesis this morning. She stated that she drove her kids to school today and felt like she was leaning to the left, and she still feels dizzy at this time. Given this, she decided to come in for evaluation. She denies any associated headache, vision changes, numbness, tingling, unilateral weakness, difficulty walking, or other concerns. She also denies any recent fevers, chills, chest pain, shortness of breath, abdominal pain, changes in bowel movements, rashes, or swelling. She does admit to some difficulty urinating. She denies experiencing anything like this in the past. Nothing seems to make her symptoms better or worse. Related Data Home Medications Medication Instructions Recorded Confirmed albuterol sulfate 90 mcg/actuation 6.7 gm inhalation Q4HP PRN asthma 11/25/21 12/19/21 aerosol inhaler Previous Rx's Medication Instructions Recorded phentermine 37.5 mg tablet 37.5 mg PO DAILY Weight loss #30 12/19/21 tabs Allergies Allergy/AdvReac Type Severity Reaction Status Date / Time No Known Allergies Allergy Verified 04/10/22 09:58 [facility] Disclaimer: The information contained in this section may have been updated after the patient was seen, as this information can be updated by other users. Social History Smoking Status: Current every day smoker tobacco type: cigarettes packs per day: 1 alcohol intake: never substance use type: marijuana current occupational status: other Travel in the last 8 weeks: None household members: spouse and children housing: house ROS Obtained: Yes All systems reviewed & no additional complaints except as documented 14 point review of systems obtained and negative except as mentioned in HPI. Physical Exam General General appearance: alert and in no apparent distress Head Head exam: atraumatic and normocephalic Eye Eye exam: Present normal appearance, PERRL, EOMI and nystagmus (Unidirectional horizontal nystagmus) ENT ENT exam: Present normal exam and normal oropharynx Neck Neck exam: Present normal inspection and full ROM Chest Chest inspection: Present normal inspection and symmetric chest wall rise Respiratory Respiratory exam: Present normal lung sounds bilaterally; Absent respiratory distress Cardiovascular Cardiovascular exam: Present regular rate and normal rhythm Abdominal Exam Abdominal exam: Present soft; Absent distention, tenderness or guarding External exam: Present normal external exam Extremities Exam Extremities exam: Present normal inspection and full ROM Back Ex
[2022-04-10 10:11] LABS: Appearance,Urine CLEAR (Clear); Bilirubin,Urine Negative (Negative); Blood, Urine Negative (Negative); Color,Urine YELLOW (Yellow); Glucose,Urine (UA) Negative (Negative); Ketones,Urine Negative (Negative); Leukocyte Esterase,Urine Negative (Negative); Nitrate,Urine Negative (Negative); PH,Urine 8.5 (5.0-8.5); Protein,Urine Negative (Negative); Specific Gravity, Urine 1.015 (1.005-1.030); Urobilinogen,Urine 0.2 EU/dl (0.2)
--- NOTE | 2022-04-10 10:19 | ECG_ITS ---
APPROVED REPORT Exam: Resting ECG HR:68 bpm ECG Measurements Heart Rate 68 AXES NH 138 P 66 QRSd 87 QRS 71 QT 383 T 61 QTc 401 Conclusion SINUS RHYTHM NORMAL ECG UNCONFIRMED REPORT Electronically signed by : Darshan Honeycutt MD 04/11/2022 08:12:13
[2022-04-10 10:20] LABS: Coronavirus 19, PCR Not Detected (NotDetected); Influenza A, PCR Not Detected (NotDetected); Influenza B, PCR Not Detected (NotDetected)
[2022-04-10 10:22] LABS: Bacteria,Urine Trace /lpf; WBC,Urine Occasional #/hpf (0-3)
[2022-04-10 10:24] LABS: Basophils # 0.1 K/mm3 (0-0.2); Basophils % 1.1 % (0.1-2.0); Eosinophils % 10.4 % (0.1-12.0); Hematocrit 34.8 % (37.0-47.0); Hemoglobin 11.3 g/dL (12.2-16.2); Lymphocytes # 2.2 K/mm3 (0.7-4.5); Lymphocytes % 23.4 % (10-50); Mean Corpuscular HGB Conc 32.4 g/dL (31.8-35.4); Mean Corpuscular Hemoglobin 25.3 pg (27.0-31.2); Mean Corpuscular Volume 78.1 fl (81-99); Mean Platelet Volume 9.1 fl (7.4-10.4); Monocytes # 0.4 K/mm3 (0.1-1.0); Monocytes % 4.2 % (1.7-9.3); Neutrophils # 5.7 K/mm3 (1.8-7.8); Neutrophils % 60.9 % (37.0-80.0); Platelet Count 378 K/mm3 (142-424); Red Blood Count 4.46 M/mm3 (4.20-5.40); Red Cell Distribution Width 16.8 % (11.5-17.5); White Blood Count 9.4 K/mm3 (4.8-10.8)
[2022-04-10 10:25] LABS: Chloride 105 mmol/L (98-107); Potassium 4.1 mmoL/L (3.5-5.1); Sodium 139 mmol/L (136-145)
[2022-04-10 10:27] LABS: Alanine Aminotransferase 17 U/L (12-78); Amylase 60 U/L (30-110); Aspartate Amino Transferase 25 U/L (14-36); Blood Urea Nitrogen 7 mg/dl (7-17); Creatinine Clearance Estimated 156 mL/min (50-200); Estimated Glomerular Filt Rate 100 ml/min (>60); GFR (African American) 121 ML/MIN (>60)
[2022-04-10 10:28] LABS: Albumin Level 4.5 g/dl (3.5-5.0); Albumin/Globulin Ratio 1.4 (1.1-1.8); Alkaline Phosphatase 73 U/L (38-126); Anion Gap 13.1 mEq/L (5-15); Bilirubin,Total 0.4 mg/dl (0.2-1.3); Calcium 8.9 mg/dl (8.4-10.2); Carbon Dioxide 25 mmol/L (22.0-30.0); Globulin 3.3 g/dL (1.3-3.2); Glucose 116 mg/dl (74-100); Total Protein,Serum 7.8 g/dl (6.3-8.2)
[2022-04-10 10:30] VITALS: BP 114/66; PULSE 73; O2SAT 97
[2022-04-10 10:45] LABS: Lipase 55 U/L (23-300)
--- NOTE | 2022-04-10 10:48 | PC.NURSE ---
pt come out to nursing station and told staff that she needed to leave due to receiving a call about her son from the school. IV removed, AMA form signed.
[2022-04-10 10:51] VITALS: BP 125/74; PULSE 65; RESP 16; TEMP 36.8
== END 2022-04-10 10:54 | disposition left against medical advice (07) ==
PROVIDERS: Emergency Provider Emergency Medicine
DX: R42 Dizziness and giddiness (principal); R11.10 Vomiting, unspecified; J45.909 Unspecified asthma, uncomplicated; D64.9 Anemia, unspecified; G43.909 Migraine, unspecified, not intractable, without status migrainosus; F17.210 Nicotine dependence, cigarettes, uncomplicated; Z20.822 Contact with and (suspected) exposure to COVID-19
CPT/HCPCS: 80053; 81001; 82150; 83690; 85025; 93005; 96361; 96374; 96375; 99285; C9803; U0003; U0005

== ENCOUNTER → 2022-04-17 11:47 | Outpatient (CLI) | payer BC, SELFPAY ==
[2022-04-17 16:02] LABS: 25-OH Vitamin D, Total 20.4 ng/mL (30-100)
[2022-04-17 16:15] LABS: Thyroid Stimulating Hormone 0.37 uIU/mL (0.465-4.68)
[2022-04-17 16:34] LABS: Vitamin B12 331 pg/mL (239-931)
[2022-04-17 16:52] LABS: Iron 42 ug/dL (37-170)
[2022-04-17 17:01] LABS: Total Iron Binding Capacity 414 ug/dL (265-497)
[2022-04-17 17:28] LABS: Ferritin 4.67 ng/ml (6.24-137)
== END ==
PROVIDERS: PCP Physician Assistant; Visit Provider Physician Assistant
DX: F41.9 Anxiety disorder, unspecified (principal); E55.9 Vitamin D deficiency, unspecified; D50.8 Other iron deficiency anemias; Z79.899 Other long term (current) drug therapy
CPT/HCPCS: 82306; 82607; 82728; 83540; 83550; 84443

== ENCOUNTER 2022-05-07 12:55 | Outpatient (CLI) | payer BC, SELFPAY ==
[2022-05-07 13:10] VITALS: BP 110/78; PULSE 89; RESP 18; TEMP 36.4; O2SAT 98
[2022-05-07 13:55] VITALS: BP 113/69; PULSE 84; RESP 18; O2SAT 99
== END 2022-05-07 14:03 | disposition home or self-care (01) ==
LOC: INF 12:57
PROVIDERS: PCP Physician Assistant; Visit Provider Physician Assistant
DX: D50.9 Iron deficiency anemia, unspecified (principal)
CPT/HCPCS: 96365; J1756

== ENCOUNTER 2022-05-09 10:05 | Outpatient (CLI) | payer BC, SELFPAY ==
[2022-05-09 10:27] VITALS: BP 136/80; PULSE 93; RESP 18; TEMP 36.6; O2SAT 97
[2022-05-09 11:08] VITALS: BP 123/80; PULSE 95; RESP 18
== END 2022-05-09 11:08 | disposition home or self-care (01) ==
LOC: INF 10:05
PROVIDERS: PCP Physician Assistant; Visit Provider Physician Assistant
DX: D50.9 Iron deficiency anemia, unspecified (principal)
CPT/HCPCS: 96365; J1756

== ENCOUNTER 2022-05-13 09:55 | Outpatient (CLI) | payer BC, SELFPAY ==
[2022-05-13 10:20] VITALS: BP 115/70; PULSE 97; RESP 18; O2SAT 97
[2022-05-13 10:57] VITALS: BP 100/69; PULSE 80; RESP 18
== END 2022-05-13 10:57 | disposition home or self-care (01) ==
LOC: INF 09:56
PROVIDERS: PCP Physician Assistant; Visit Provider Physician Assistant
DX: D50.9 Iron deficiency anemia, unspecified (principal)
CPT/HCPCS: 96365; J1756

== ENCOUNTER 2022-05-14 09:53 | Outpatient (CLI) | payer BC, SELFPAY ==
[2022-05-14 10:18] VITALS: BP 117/71; PULSE 82; RESP 18; TEMP 36.4; O2SAT 100
[2022-05-14 10:40] VITALS: BP 117/66; PULSE 76; RESP 18; O2SAT 99
== END 2022-05-14 10:40 | disposition home or self-care (01) ==
LOC: INF 09:54
PROVIDERS: PCP Physician Assistant; Visit Provider Physician Assistant
DX: D50.9 Iron deficiency anemia, unspecified (principal)
CPT/HCPCS: 96365; J1756

== ENCOUNTER 2022-05-15 10:27 | Outpatient (CLI) | payer BC, SELFPAY ==
[2022-05-15 10:39] VITALS: BP 130/73; PULSE 96; RESP 18; O2SAT 100
[2022-05-15 11:23] VITALS: BP 126/74; PULSE 89; RESP 18; O2SAT 100
== END 2022-05-15 11:23 | disposition home or self-care (01) ==
LOC: INF 10:28
PROVIDERS: PCP Physician Assistant; Visit Provider Physician Assistant
DX: D50.9 Iron deficiency anemia, unspecified (principal)
CPT/HCPCS: 96365; J1756

== ENCOUNTER 2022-05-16 08:54 | Day surgery (SDC) | payer BC, SELFPAY ==
[2022-05-14 12:22] VITALS: BMI 66.7
[2022-05-16] VITALS (10 sets, daily range): BP systolic 101–114; BP diastolic 67–75; PULSE 66–89; RESP 12–18; TEMP 36.3–43; O2SAT 93–99
[2022-05-16 09:53] LABS: Urine Pregnancy, HCG Qual. Negative (Negative)
--- NOTE | 2022-05-16 11:07 | EXP.ANES.CKL ---
[facility] Disclaimer: The information contained in this section may have been updated after the patient was seen, as this information can be updated by other users. Medical History Anemia Anxiety delivery delivered x2 Migraine Panic attack Surgical History Hx of tonsillectomy Family History (Updated 05/16/22 @ 09:18 by Tasneem Hidalgo RN) Other Family history of pulmonary hypertension No significant family history Social History (Updated 05/16/22 @ 09:19 by Tasneem Hidalgo RN) Smoking Status: Current every day smoker tobacco type: cigarettes packs per day: 1 years smoked: 12 alcohol intake: never substance use type: marijuana current occupational status: other Travel in the last 8 weeks: None household members: spouse and children housing: house [facility] Anesthesia Checklist Patient Identification Patient Identification: Verbal (Name & ) Structural Data Admitted From: Home Planned Operative Procedure/s: excision neoplasm r shoulder Consent for Planned Operative Procedure(s) Verified: Yes NPO Status Verified Time NPO: 00:00 Additional verifications Anesthesia Reactions: No Hx Blood Transfusions: Yes Blood Transfusion Reaction: No Airway Assessment C-Spine Mobility Assessed: Yes TMJ Mobility Assessed: Yes Dentition: Good Dentition Neurological Assessment Level of Consciousness: Awake, Alert and Appropriate Anesthesia Plan Anesthesia Risk discussed: Yes Anesthesia Plan: Verified ASA Class: II Anesthesia Type: General
--- NOTE | 2022-05-16 11:20 | P.OP_ITS ---
Date of procedure: 05/16/22 Pre-op Diagnosis:: Right upper back/posterior shoulder lipoma (6 cm) Post-op Diagnosis:: Same Procedure performed:: Excision of 6 cm lipoma Sally from right upper back/posterior shoulder Surgeon:: Irving Bonner MD APPLIED BEHAVIOR SCIENCE SPECIALIST:: Yoan Landaverde Anesthesia: local and LMA Estimated blood loss (mL): 5 Operative findings:: Lobulated lipomatous lesion in deep subcutaneous tissue Operative note:: After informed consent was obtained the patient was taken to the operating room and placed in the supine position. General anesthesia with laryngeal mask airway was achieved. Her right upper back/posterior shoulder was prepped and draped in a sterile fashion. After infiltration local anesthetic an incision was made overlying the central portion of the lesion. The deep subcutaneous tissue was dissected with electrocautery. A lobulated lipomatous growth in the deep subcutaneous tissue was then dissected free from surrounding tissue with a combination of electrocautery, sharp dissection, and blunt dissection. The lesion was passed off for pathologic evaluation. Electrocautery was utilized to achieve hemostasis. Skin was reapproximated with interrupted 4-0 nylon in an interrupted/mattress fashion. Dressings were applied and the patient was transferred to recovery in stable condition. Condition: stable Disposition: PACU Specimens:: Right upper back/posterior shoulder lipoma Complications:: No immediate
--- NOTE | 2022-05-16 11:30 | EXP.ANES.I ---
[facility] Anesthesia Record Part I Anesthesia Record I Intake, IV Amount: 1,000 Estimated blood loss (mL): 0 Urine output (mL): 0 Blood Pressure: 114/75 SaO2: 94 Pulse Rate: 76 Respiratory Rate: 12 Temperature: 98.2 F Patient is:: Awake and Stable Stable to PACU at:: 11:25
--- NOTE | 2022-05-20 07:31 | EXP.ANES.II ---
[facility] Anesthesia Record Part II Anesthesia Record Part II Discharge Time: 11:55 Destination: Surgical Day Care (OP Surgery) PACU nurse assessment reviewed?: Yes Patient Condition:: Good Anesthesia Complications:: None Swallowing reflex intact?: Yes Cyanosis?: No Blood Pressure: 102/72 Pulse Rate: 71 Temperature: 97.6 F Mental Status: Alert & Oriented Pain level:: 0 Nausea and/or vomitting:: None Intake, IV Amount: 0
[2022-05-20 07:32] VITALS: BP 102/72; PULSE 71; TEMP 36.4
== END 2022-05-16 12:27 | disposition home or self-care (01) ==
PROVIDERS: PCP Physician Assistant; Visit Provider Surgery
PROC: (CPT 11406; principal; 2022-05-16 10:30)
DX: D17.1 Benign lipomatous neoplasm of skin and subcutaneous tissue of trunk (principal); F17.210 Nicotine dependence, cigarettes, uncomplicated
CPT/HCPCS: 11406; 81025; J2405

== ENCOUNTER 2022-05-18 22:09 | Emergency (ER) | payer BC, SELFPAY ==
--- NOTE | 2022-05-18 22:23 | HMH.EDGENADL ---
Discharge Plan Disposition Patient Disposition: Home, Self-Care Condition: Fair Prescriptions Prescriptions: No Action fluticasone furoate-vilanterol [Breo Ellipta] 200-25 mcg/dose blister with device 1 inh inhalation DAILY Label Comments: Inhale 1 puff once a day rinse mouth after use albuterol sulfate 6.7 GM HFA aerosol inhaler 6.7 gm IH Q4HP PRN (Reason: asthma) hydrocodone-acetaminophen 5-325 mg tablet 1 tab PO Q6H PRN (Reason: post-op pain) Qty: 9 0RF Referrals Follow up/Referrals: Princess Brothers PA [Primary Care Provider] - See instructions Clinical Impressions Clinical Impression: Post-op pain Instructions Patient Instructions: Excision of Mass Discharge ED Provider: All Schulte General Adult HPI General Chief complaint: Shortness of Breath/Dyspnea Stated complaint: Tumor removed fr Back 0209 SOB Time Seen by Provider: 05/18/22 22:23 History of Present Illness HPI narrative: Patient is a 27-year-old female with recent history of lipoma removal on her right upper back on 05/16. She presents today with concern for shortness of breath and back pain. She says that she was prescribed pain medication but she is unable to swallow pills so she has not been able to take any of her pain medication. She says that her pain is worse when she takes a deep breath mainly stemming from the excisional site. Denies any chest pain. Denies any nausea. Denies any diaphoresis. Related Data Home Medications Medication Instructions Recorded Confirmed albuterol sulfate 90 mcg/actuation 6.7 gm inhalation Q4HP PRN asthma 11/25/21 05/15/22 aerosol inhaler fluticasone furoate 200 1 inh inhalation DAILY Asthma 04/11/22 05/15/22 mcg-vilanterol 25 mcg/dose inhalation powder (Breo Ellipta) Previous Rx's Medication Instructions Recorded hydrocodone 5 mg-acetaminophen 325 1 tab PO Q6H PRN post-op pain #9 05/16/22 mg tablet tabs Allergies Allergy/AdvReac Type Severity Reaction Status Date / Time No Known Allergies Allergy Verified 05/14/22 12:21 [facility] Disclaimer: The information contained in this section may have been updated after the patient was seen, as this information can be updated by other users. Medical History Anemia Anxiety delivery delivered x2 Migraine Panic attack Surgical History Hx of tonsillectomy Family History (Updated 05/16/22 @ 09:18 by Tasneem Hidalgo RN) Other Family history of pulmonary hypertension No significant family history Social History (Updated 05/16/22 @ 09:19 by Tasneem Hidalgo RN) Smoking Status: Current every day smoker tobacco type: cigarettes packs per day: 1 years smoked: 12 alcohol intake: never substance use type: marijuana current occupational status: other Travel in the last 8 weeks: None household members: spouse and children housing: house ROS Obtained: Yes All systems reviewed & no additional complaints except as documented Physical Exam General General appearance: alert and in no apparent distress Head Head exam: atraumatic, normocephalic and normal inspection Eye Eye exam: Present normal appearance and PERRL ENT ENT exam: Present normal exam, mucous membranes moist and normal external ear exam Neck Neck exam: Present normal inspection and trachea midline Chest Chest inspection: Present normal inspection and symmetric chest wall rise Respiratory Respiratory exam: Present normal lung sounds bilaterally; Absent respiratory distress Cardiovascular Cardiovascular exam: Present regular rate and normal rhythm Abdominal Exam Abdominal exam: Present soft; Absent distention, tenderness or guarding Extremities Exam Extremities exam: Present normal inspection; Absent edema Back Exam Back exam: Present other (Well-healing surgical incision on the right upper scap
--- NOTE | 2022-05-18 22:28 | XR_ITS ---
PROCEDURE INFORMATION: Exam: XR Chest Exam date and time: 05/18/2022 11:20 PM Age: 27 years old Clinical indication: Wheezing; Additional info: Post op; Chest pain TECHNIQUE: Imaging protocol: Radiologic exam of the chest. Views: 1 view. COMPARISON: CR XR CHEST 2V 11/25/2021 12:02 AM FINDINGS: Lungs: Unremarkable. No consolidation. Pleural spaces: Unremarkable. No pleural effusion. No pneumothorax. Heart/Mediastinum: Unremarkable. No cardiomegaly. Bones/joints: Unremarkable. IMPRESSION: No acute findings.
[2022-05-18 22:32] VITALS: BP 118/79; PULSE 95; RESP 18; TEMP 36.6; O2SAT 96; BMI 30.6
[2022-05-18 23:00] VITALS: BP 98/64; PULSE 70; O2SAT 94
[2022-05-18 23:41] VITALS: BP 98/64; PULSE 70; RESP 18; TEMP 36.6; O2SAT 99
== END 2022-05-18 23:52 | disposition home or self-care (01) ==
PROVIDERS: Emergency Provider Student in an Organized Health Care Education/Training Program; PCP Physician Assistant
DX: G89.18 Other acute postprocedural pain (principal); D17.9 Benign lipomatous neoplasm, unspecified; D64.9 Anemia, unspecified; G43.909 Migraine, unspecified, not intractable, without status migrainosus; F41.9 Anxiety disorder, unspecified; F41.0 Panic disorder [episodic paroxysmal anxiety]; F17.210 Nicotine dependence, cigarettes, uncomplicated; Z90.49 Acquired absence of other specified parts of digestive tract; Z82.49 Family history of ischemic heart disease and other diseases of the circulatory system
CPT/HCPCS: 71045; 99283; 99284

== ENCOUNTER 2022-06-05 14:43 | Emergency (ER) | payer BC, SELFPAY ==
[2022-06-05 14:43] VITALS: BP 118/73; PULSE 82; RESP 20; TEMP 36.8; O2SAT 98; BMI 29.9
--- NOTE | 2022-06-05 15:22 | EXP.UTC ---
Discharge Plan Prescriptions Prescriptions: No Action fluticasone furoate-vilanterol [Breo Ellipta] 200-25 mcg/dose blister with device 1 inh inhalation DAILY Label Comments: Inhale 1 puff once a day rinse mouth after use fluconazole [Diflucan] 150 mg tablet 150 mg PO DAILY PRN albuterol sulfate 6.7 GM HFA aerosol inhaler 6.7 gm IH Q4HP PRN (Reason: asthma) Referrals Follow up/Referrals: Princess Brothers PA [Primary Care Provider] - See instructions Discharge ED Provider: Khoa Bacon [facility] [place] HPI General Stated complaint: Suture removal RT shoulder Time Seen by Provider: 06/05/22 15:22 Related Data Home Medications Medication Instructions Recorded Confirmed albuterol sulfate 90 mcg/actuation 6.7 gm inhalation Q4HP PRN asthma 11/25/21 05/24/22 aerosol inhaler fluticasone furoate 200 1 inh inhalation DAILY Asthma 04/11/22 05/24/22 mcg-vilanterol 25 mcg/dose inhalation powder (Breo Ellipta) fluconazole 150 mg tablet 150 mg PO DAILY PRN 05/24/22 05/24/22 (Diflucan) Allergies Allergy/AdvReac Type Severity Reaction Status Date / Time No Known Allergies Allergy Verified 05/24/22 09:32 [facility] Disclaimer: The information contained in this section may have been updated after the patient was seen, as this information can be updated by other users. Medical History (Updated 05/24/22 @ 09:32 by LORRAINE Anderson) Anemia Anxiety delivery delivered History of lipoma Migraine Panic attack Surgical History Hx of tonsillectomy Family History Other Family history of pulmonary hypertension No significant family history Social History Smoking Status: Current every day smoker tobacco type: cigarettes packs per day: 1 years smoked: 12 alcohol intake: never substance use type: marijuana current occupational status: other Travel in the last 8 weeks: None household members: spouse and children housing: house
[2022-06-05 15:45] VITALS: BP 118/73; PULSE 82; RESP 20; TEMP 36.8; O2SAT 98
== END 2022-06-05 15:45 | disposition home or self-care (01) ==
PROVIDERS: Emergency Provider Nurse Practitioner Family; PCP Physician Assistant
DX: Z48.02 Encounter for removal of sutures (principal)

== ENCOUNTER → 2022-06-10 12:04 | Outpatient (CLI) | payer BC, SELFPAY ==
[2022-06-10 14:22] LABS: Thyroid Stimulating Hormone 0.73 uIU/mL (0.465-4.68)
== END ==
PROVIDERS: PCP Physician Assistant; Visit Provider Physician Assistant
DX: F41.9 Anxiety disorder, unspecified (principal)
CPT/HCPCS: 84443

== ENCOUNTER → 2022-10-15 23:37 | Outpatient (CLI) | payer BC, SELFPAY | PROVIDERS: PCP Physician Assistant; Visit Provider Physician Assistant | DX: M54.50 Low back pain, unspecified (principal) | CPT/HCPCS: 87086 ==

== ENCOUNTER 2023-04-09 06:47 | Outpatient (CLI) | payer BC, SELFPAY ==
[2023-04-09 19:41] LABS: Basophils # 0.1 K/mm3 (0-0.2); Basophils % 0.8 % (0.1-2.0); Eosinophils # 0.9 K/mm3 (0.0-0.4); Eosinophils % 9.5 % (0.1-12.0); Hematocrit 39.9 % (37.0-47.0); Lymphocytes # 2.9 K/mm3 (0.7-4.5); Lymphocytes % 30.4 % (10-50); Mean Corpuscular HGB Conc 32.7 g/dL (31.8-35.4); Mean Corpuscular Hemoglobin 30.4 pg (27.0-31.2); Mean Corpuscular Volume 93.1 fl (81-99); Mean Platelet Volume 9.5 fl (7.4-10.4); Monocytes # 0.5 K/mm3 (0.1-1.0); Monocytes % 4.9 % (1.7-9.3); Neutrophils # 5.2 K/mm3 (1.8-7.8); Neutrophils % 54.5 % (37.0-80.0); Platelet Count 314 K/mm3 (142-424); Red Blood Count 4.29 M/mm3 (4.20-5.40); Red Cell Distribution Width 13.1 % (11.5-17.5); White Blood Count 9.6 K/mm3 (4.8-10.8)
[2023-04-09 20:16] LABS: Alanine Aminotransferase 19 U/L (12-78); Albumin Level 4.2 g/dl (3.5-5.0); Albumin/Globulin Ratio 1.6 (1.1-1.8); Alkaline Phosphatase 76 U/L (38-126); Anion Gap 10.5 mEq/L (5-15); Aspartate Amino Transferase 28 U/L (14-36); Bilirubin,Total 0.2 mg/dl (0.2-1.3); Blood Urea Nitrogen 9 mg/dl (7-17); Calcium 9.1 mg/dl (8.4-10.2); Carbon Dioxide 25 mmol/L (22.0-30.0); Chloride 103 mmol/L (98-107); Chol/HDL Ratio 4.6 (1-3.5); Cholesterol 183 mg/dl (140-200); Estimated Glomerular Filt Rate 100 ml/min (>60); GFR (African American) 121 ML/MIN (>60); Globulin 2.6 g/dL (1.3-3.2); Glucose 95 mg/dl (74-100); HDL Cholesterol 40 mg/dl (40-60); Potassium 4.5 mmoL/L (3.5-5.1); Sodium 134 mmol/L (136-145); Total Protein,Serum 6.8 g/dl (6.3-8.2); Triglycerides 136 mg/dl (30-150); VLDL Cholesterol 27 mg/dL (0-40)
[2023-04-09 20:41] LABS: Direct LDL Cholesterol 112.71 mg/dL (100-129)
[2023-04-09 20:46] LABS: 25-OH Vitamin D, Total 22.9 ng/mL (30-100)
[2023-04-09 20:53] LABS: Thyroid Stimulating Hormone 0.58 uIU/mL (0.465-4.68)
[2023-04-09 21:13] LABS: Vitamin B12 331 pg/mL (239-931)
== END 2023-04-09 23:59 ==
LOC: LAB.DROPOF 04-10 06:48
PROVIDERS: PCP Physician Assistant; Visit Provider Physician Assistant
DX: R06.02 Shortness of breath (principal); E55.9 Vitamin D deficiency, unspecified; Z82.49 Family history of ischemic heart disease and other diseases of the circulatory system; Z79.899 Other long term (current) drug therapy; R10.12 Left upper quadrant pain
CPT/HCPCS: 80053; 80061; 82306; 82607; 84443; 85025

== ENCOUNTER 2023-04-21 07:58 | Outpatient (CLI) | payer BC, SELFPAY ==
[2023-04-21 08:35] VITALS: PULSE 87; PULSE 90
[2023-04-21] MEDS: ALBUTEROL 0.083% 2.5 MG/3 ML NEB IH (08:35)
== END 2023-04-21 23:59 ==
LOC: RT 07:59
PROVIDERS: PCP Physician Assistant; Visit Provider Physician Assistant
DX: R06.00 Dyspnea, unspecified (principal); J45.909 Unspecified asthma, uncomplicated; Z82.49 Family history of ischemic heart disease and other diseases of the circulatory system
CPT/HCPCS: 94060; 94640

== ENCOUNTER 2023-05-05 13:04 | Outpatient (CLI) | payer BC, SELFPAY ==
--- NOTE | 2023-05-05 13:21 | CT_ITS ---
FINAL REPORT TECHNIQUE: axial CT without IV contrast administration. During inspiration and expiration performed both prone and supine. This study was performed with techniques to keep radiation doses as low as reasonably achievable (ALARA). Individualized dose reduction techniques using automated exposure control or adjustment of mA and/or kV according to the patient's size were employed. CLINICAL HISTORY: Dyspnea. FINDINGS: There are minimal patchy groundglass opacities in lower lobes which may present mild air trapping or mild pneumonia. There is no diffuse interstitial lung disease or bronchiectasis. No pleural or pericardial effusion is seen. No adenopathy or mass lesion is present. IMPRESSION: Nonspecific, patchy groundglass opacities which could represent mild pneumonia or air trapping. Reviewed, Interpreted and Dictated by Bekah Noel MD Transcribed by Anila Oliveira Authenticated and [facility]
== END 2023-05-05 23:59 ==
LOC: RAD 13:06
PROVIDERS: PCP Physician Assistant; Visit Provider Physician Assistant
DX: R06.00 Dyspnea, unspecified (principal); R00.0 Tachycardia, unspecified; I10 Essential (primary) hypertension; J45.909 Unspecified asthma, uncomplicated; Z82.49 Family history of ischemic heart disease and other diseases of the circulatory system
CPT/HCPCS: 71250

== ENCOUNTER 2023-06-08 15:11 | Emergency (ER) | payer BC, SELFPAY ==
[2023-06-08 16:57] VITALS: BP 0/0; PULSE 0; RESP 0; TEMP -17.7; TEMP 0
== END 2023-06-08 16:58 | disposition left against medical advice (07) ==
LOC: UTC 15:15
PROVIDERS: Emergency Provider Nurse Practitioner; PCP Physician Assistant
DX: Z53.21 Procedure and treatment not carried out due to patient leaving prior to being seen by health care provider (principal)

== ENCOUNTER 2023-06-08 18:03 | Emergency (ER) | payer BC, SELFPAY ==
[2023-06-08 18:05] VITALS: BP 122/77; PULSE 100; RESP 19; TEMP 36.8; O2SAT 98; BMI 29.9
[2023-06-08 18:09] VITALS: PULSE 125; O2SAT 97
--- NOTE | 2023-06-08 18:11 | ED_ITS ---
I was consulted by the REGINO, and we discussed the complexity of the problems being addressed. I approved the treatment and management plan for this patient's care in the emergency department, thus performing a substantive portion of the medical decision making. Sylvester Pearl MD Discharge Plan Disposition Patient Disposition: Home, Self-Care Condition: Good Chief Complaint: PAIN Prescriptions Prescriptions: No Action loratadine 10 mg tablet,disintegrating 10 mg PO DAILY Patient Comments: DISSOLVE 1 TABLET BY MOUTH ONCE DAILY cholecalciferol (vitamin D3) 1,250 mcg (50,000 unit) capsule 1,250 mcg PO WEEKLY cholecalciferol (vitamin D3) 50 mcg (2,000 unit) capsule 50 mcg PO DAILY Patient Comments: TAKE 1 CAPSULE BY MOUTH ONCE DAILY triamcinolone acetonide [Nasal Allergy] 55 mcg aerosol,spray intranasal Patient Comments: SPRAY 2 SPRAYS INTO BOTH NOSTRILS ONCE A DAY albuterol sulfate 90 mcg/actuation HFA aerosol inhaler 2 inh IH Q4HP PRN (Reason: asthma) Qty: 8.5 3RF furosemide [Lasix] 20 mg tablet 20 mg PO DAILY Qty: 90 0RF Referrals Follow up/Referrals: Princess Brothers PA [Primary Care Provider] - See instructions Activity Restrictions/Add. Instructions Additional Instructions/Restrictions: Take Tylenol Motrin as needed for left flank pain if it returns. May return to ER as needed. For worsening or changing symptoms. If blood upon voiding cont inues follow-up with PCP or GEOMAGNETIST or return to ER as needed. Clinical Impressions Clinical Impression: Acute left-sided low back pain Qualifiers: Sciatica presence: without sciatica Qualified Code(s): M54.50 - Low back pain, unspecified Hematuria Qualifiers: Hematuria type: unspecified type Qualified Code(s): R31.9 - Hematuria, unspecified Discharge ED Provider: Sylvester Pearl General Adult HPI General Chief complaint: PAIN Stated complaint: Lower back pain Time Seen by Provider: 06/08/23 18:08 History of Present Illness HPI narrative: Patient presents for evaluation of hematuria and left flank pain. Patient states that she sees blood when she urinates with wiping, and has a history of kidney stones and reports left flank pain similar to her previous episodes of kidney stones. Patient denies chest pain shortness of breath fever chills hemoptysis hematochezia melena nausea vomiting diarrhea. Patient's last menstrual period was about May 21. Patient also reports that her chest is tight and she has a history of asthma on albuterol and Advair and is continuing to smoke. Related Data Home Medications Medication Instructions Recorded Confirmed loratadine 10 mg disintegrating 10 mg PO DAILY 10/15/22 04/16/23 tablet triamcinolone acetonide 55 mcg intranasal 01/28/23 04/16/23 nasal spray aerosol (Nasal Allergy) cholecalciferol (vitamin D3) 1,250 1,250 mcg PO WEEKLY 04/16/23 04/16/23 mcg (50,000 unit) capsule cholecalciferol (vitamin D3) 50 50 mcg PO DAILY 04/16/23 04/16/23 mcg (2,000 unit) capsule Previous Rx's Medication Instructions Recorded albuterol sulfate 90 mcg/actuation 2 inh inhalation Q4HP PRN asthma 04/10/23 aerosol inhaler #8.5 grams furosemide 20 mg tablet (Lasix) 20 mg PO DAILY #90 tabs 04/10/23 Allergies Allergy/AdvReac Type Severity Reaction Status Date / Time No Known Allergies Allergy Verified 04/16/23 10:25 [facility] Disclaimer: The information contained in this section may have been updated after the patient was seen, as this information can be updated by other users. Medical History Anemia Anxiety delivery delivered x2 History of lipoma Migraine Panic attack Surgical History Hx of section Hx of laparoscopy Hx of tonsillectomy Hx of tubal ligation Family History Other Family history of pulmonary hypertension No significant family history Social History Smoking Status: Current every day smoker tobacco type: cigarettes packs per day: 1 years smoked: 12 alcohol intake: never substance use type: marijuana current occupational status: other Travel in the last 8 weeks: None household members: spouse and children housing: house ROS Obtained: Yes Systems reviewed as appropriate & no additional complaints except as documented Physical Exam General General appearance: alert and in no apparent distress Head Head exam: atraumatic and normal inspection Eye Eye exam: Present normal appearance and EOMI ENT ENT exam: Present normal exam and normal oropharynx Neck Neck exam: Present normal inspection and full ROM Chest Chest inspection: Present normal inspection and symmetric chest wall rise Respiratory Respiratory exam: Present normal lung sounds bilaterally; Absent respiratory distress, wheezes or accessory muscle use Cardiovascular Cardiovascular exam: Present regular rate, normal rhythm and normal heart sounds Abdominal Exam Abdominal exam: Present soft, tenderness (She is tender to palp in the both left upper and lower quadrant without any focal masses. Bowel sounds are normal active.), normal bowel sounds and other (Patient has CVA tenderness to percussion on the left not on the right); Absent guarding or rebound Extremities Exam Extremities exam: Present normal inspection and full ROM Neurological Exam Neurological exam: Present alert and oriented X3 Psychiatric Psychiatric exam: Present normal affect and normal mood Skin Skin exam: Present warm, dry and normal color Medical Decision Making Medical Records Medical records reviewed: Yes I reviewed the patient's medical records. Min Inquiry Pt receiving controlled substance: No Vital Signs: 06/08/23 18:05 06/08/23 18:09 06/08/23 19:30 Temperature 98.2 F Temperature Source Oral Pulse Rate 125 H 82 Pulse Rate [Left Radial] 100 H Respiratory Rate 19 Blood Pressure 98/65 L Blood Pressure [Right Arm] 122/77 Blood Pressure Mean [Right Arm] 92 02 Sat by Pulse Oximetry 98 97 100 Oxygen Delivery Method Room Air 06/08/23 19:45 Temperature Temperature Source Pulse Rate 80 Pulse Rate [Left Radial] Respiratory Rate Blood Pressure 99/55 L Blood Pressure [Right Arm] Blood Pressure Mean [Right Arm] 02 Sat by Pulse Oximetry 100 Oxygen Delivery Method Lab Data Lab results reviewed: Yes I reviewed the patient's lab results. Lab Results 06/08/23 18:09: Urine Color Yellow, Urine Appearance Clear, Urine pH 6.0, Ur Specific Crane >= 1.030, Urine Protein Negative, Urine Glucose (UA) Negative, Urine Ketones Negative, Urine Blood 3+, Urine Nitrate Negative, Urine Bilirubin Negative, Urine Urobilinogen 0.2, Ur Leukocyte Esterase Negative, Urine RBC 5- 10, Urine WBC 3-5, Ur Squamous Epith Cells 10-20, Urine Bacteria Trace 06/08/23 18:22: WBC 11.0 H, RBC 4.42, Hgb 13.1, Hct 41.4, MCV 93.8, MCH 29.6, MCHC 31.6 L, RDW 13.6, Plt Count 335, MPV 9.1, Neut % (Auto) 62.0, Lymph % (Auto) 26.8, [place] % (Auto) 5.1, Eos % (Auto) 5.4, Baso % (Auto) 0.7, Neut # (Auto) 6.8, Lymph # (Auto) 3.0, [place] # (Auto) 0.6, Eos # (Auto) 0.6 H, Baso # (Auto) 0.1, Sodium 138, Potassium 4.2, Chloride 106, Carbon Dioxide 26, Anion Ga p 10.2, BUN 7, Creatinine 0.70, Estimated Creat Clear 154, Estimated GFR 100, Est GFR ( Amer) 121, Glucose 98, Calcium 9.7, Total Bilirubin 0.2, AST 24, ALT 19, Alkaline Phosphatase 81, Total Protein 7.1, Albumin 4.3, Globulin 2.8, Albumin/Globulin Ratio 1.5, Serum HCG, Qual Negative 06/08/23 18:22 06/08/23 18:22 Orders (Tests/Meds): ED MEDICATIONS Generic Name Dose Route Start Last Admin Trade Name Freq PRN Reason Stop Dose Admin Sodium Chloride 10 ml 06/08/23 18:24 Sodium Chloride 0.9% 10ml Flush Syringe IV 06/09/23 06:24 NEEDED PRN Maintain IV Site Discontinued Medications Generic Name Dose Route Start Last Admin Trade Name Freq PRN Reason Stop Dose Admin Acetaminophen 1,000 mg 06/08/23 18:12 06/08/23 18:20 Acetaminophen 1,000mg/100ml Vial IV 06/08/23 18:13 1,000 mg ONCE ONE Administration Albuterol/Ipratropium 3 ml 06/08/23 18:17 06/08/23 18:41 Ipratropium/Albuterol 3 Ml Neb IH 06/08/23 18:18 3 ml ONCE ONE Administration Hydroxyzine Pamoate 25 mg 06/08/23 18:24 06/08/23 18:31 Hydroxyzine Pamoate 25mg Capsule PO 06/08/23 18:25 25 mg ONCE ONE Administration Lactated Ringer's 1,000 mls @ 999 mls/hr 06/08/23 18:24 06/08/23 18:31 Lactated Ringer's 1000 Ml Bag IV 06/08/23 19:24 999 mls/hr .Q1H1M ONE Administration Iopamidol 75 ml 06/08/23 19:02 06/08/23 19:03 Iopamidol-370 (76%);100ml Bottle IV 06/08/23 19:03 75 ml ONCE ONE Administration Ketorolac Tromethamine 15 mg 06/08/23 18:12 06/08/23 18:20 Ketorolac 30mg/Ml Vial IV 06/08/23 18:13 15 mg ONCE ONE Administration Sodium Chloride 10 ml 06/08/23 19:02 06/08/23 19:03 Sodium Chloride 0.9% 10ml Syr (Rad Only) IV 06/08/23 19:03 10 ml ONCE ONE Administration ORDERS Category Date Time Status CT abdomen pelvis w con Stat Cat Scan 06/08/23 18:30 Completed Chest XR -- portable [XR chest portable] Stat Exams 06/08/23 18:30 Completed CBC w/Auto Diff [Complete Blood Count Auto Diff] Stat Lab 06/08/23 18:22 Completed CMP [Comprehensive Metabolic Panel] Stat Lab 06/08/23 18:22 Completed HCG Qualitative, Serum Stat Lab 06/08/23 18:22 Completed UA [Urinalysis and Microscopic] Stat Lab 06/08/23 18:09 Completed Medical Decision Narrative: In summary patient is a 20-year-old female who presents to the emergency department for evaluation of left flank pain and hematuria. Patient also reports shortness of breath . Patient is tachycardic but otherwise hemodynamically stable and afebrile on arrival. Physical exam is remarkable for left flank tenderness to percussion along with left-sided mild nonfocal upper and lower quadrant tenderness to palpation. Breath sounds are clear and equal bilaterally with breath sounds heard at bases bilaterally. Differential diagnosis includes kidney stone versus urinary tract infection versus asthma exacerbation versus kidney stone skill skeletal strain etc. Considered COVID and flu however patient has no other constitutional symptoms suggestive of an acute viral bacterial infection. Patient does have a history of asthma and she states that she feels tight . Initial workup will be conducted with hematologic labs chest x-ray CT scan abdomen pelvis with contrast. Initial interventions include Toradol acetaminophen DuoNeb IV fluids. Initial workup reviewed by me shows hematuria without infection and the remainder of her laboratory investigations are nonactionable. My informal interpretation of her CT scan of her abdomen pelvis with contrast and plain from chest x-ray shows no acute processes including a stone pneumonia or infiltrates.. Upon repeat evaluation had complete resolution of her left flank pain after administration of DuoNeb Toradol and acetaminophen.. Given this patient is appropriate for discharge with instructions to return if symptoms return or worsen. Continue take ibuprofen alternating with Tylenol for flank pain as needed. Critical Care Critical Care Time Critical Care Time: No
[2023-06-08 18:19] LABS: Microscopic, Urine URINE MICROSCOPIC (MICROSCOPIC)
[2023-06-08] MEDS: KETOROLAC 30MG/ML VIAL 15 MG IV (18:20)
[2023-06-08] MEDS: ACETAMINOPHEN 1,000MG/100ML VIAL 1000 MG IV (18:20)
[2023-06-08 18:25] LABS: Appearance,Urine CLEAR (Clear); Bilirubin,Urine Negative (Negative); Blood, Urine 3+ (Negative); Color,Urine YELLOW (Yellow); Glucose,Urine (UA) Negative (Negative); Ketones,Urine Negative (Negative); Leukocyte Esterase,Urine Negative (Negative); Nitrate,Urine Negative (Negative); Protein,Urine Negative (Negative); Specific Gravity, Urine >= 1.030 (1.005-1.030); Urobilinogen,Urine 0.2 EU/dl (0.2)
--- NOTE | 2023-06-08 18:30 | CT_ITS ---
PROCEDURE INFORMATION: Exam: CT Abdomen And Pelvis With Contrast Exam date and time: 06/08/2023 6:57 PM Age: 28 years old Clinical indication: Abdominal pain; Flank; Left; Additional info: Left flank pain TECHNIQUE: Imaging protocol: Computed tomography of the abdomen and pelvis with contrast. Radiation optimization: All CT scans at this facility use at least one of these dose optimization techniques: automated exposure control; mA and/or kV adjustment per patient size (includes targeted exams where dose is matched to clinical indication); or iterative reconstruction. Contrast material: ISOVUE; Contrast volume: 75 ml; Contrast route: IV; COMPARISON: CT ABDOMEN PELVIS WO CON 11/25/2021 12:30 AM FINDINGS: Liver: Mild hypoattenuation of the liver adjacent to the falciform ligament compatible with fatty replacement. Gallbladder and bile ducts: Normal. No calcified stones. No ductal dilation. Pancreas: Normal. No ductal dilation. Spleen: Normal. No splenomegaly. Adrenal glands: Normal. No mass. Kidneys and ureters: Normal. No hydronephrosis. Stomach and bowel: Unremarkable. No obstruction. No mucosal thickening. Appendix: No evidence of appendicitis. Intraperitoneal space: Unremarkable. No free air. No significant fluid collection. Vasculature: Unremarkable. No abdominal aortic aneurysm. Lymph nodes: Unremarkable. No enlarged lymph nodes. Urinary bladder: Unremarkable as visualized. Reproductive: Unremarkable as visualized. Bones/joints: Unremarkable. No acute fracture. Soft tissues: Normal. IMPRESSION: No acute findings.
--- NOTE | 2023-06-08 18:30 | XR_ITS ---
PROCEDURE INFORMATION: Exam: XR Chest Exam date and time: 06/08/2023 6:58 PM Age: 28 years old Clinical indication: Shortness of breath TECHNIQUE: Imaging protocol: Radiologic exam of the chest. Views: 1 view. COMPARISON: CT HR CHEST X3 05/05/2023 1:26 PM FINDINGS: Lungs: Unremarkable. No consolidation. Pleural spaces: Unremarkable. No pleural effusion. No pneumothorax. Heart/Mediastinum: Unremarkable. No cardiomegaly. Bones/joints: Unremarkable. IMPRESSION: No acute findings.
[2023-06-08] MEDS: hydrOXYzine pamoate 25MG CAPSULE 25 MG PO (18:31)
[2023-06-08] MEDS: LACTATED RINGERS 1000ML 1,000 ML 999 ML IV (18:31)
[2023-06-08 18:39] LABS: Basophils # 0.1 K/mm3 (0-0.2); Basophils % 0.7 % (0.1-2.0); Eosinophils # 0.6 K/mm3 (0.0-0.4); Eosinophils % 5.4 % (0.1-12.0); Hematocrit 41.4 % (37.0-47.0); Hemoglobin 13.1 g/dL (12.2-16.2); Lymphocytes % 26.8 % (10-50); Mean Corpuscular HGB Conc 31.6 g/dL (31.8-35.4); Mean Corpuscular Hemoglobin 29.6 pg (27.0-31.2); Mean Corpuscular Volume 93.8 fl (81-99); Mean Platelet Volume 9.1 fl (7.4-10.4); Monocytes # 0.6 K/mm3 (0.1-1.0); Monocytes % 5.1 % (1.7-9.3); Neutrophils # 6.8 K/mm3 (1.8-7.8); Platelet Count 335 K/mm3 (142-424); Red Blood Count 4.42 M/mm3 (4.20-5.40); Red Cell Distribution Width 13.6 % (11.5-17.5)
[2023-06-08] MEDS: IPRATROPIUM/ALBUTEROL 3 ML NEB IH (18:41)
[2023-06-08 18:46] LABS: HCG Qualitative, Serum Negative (Negative)
[2023-06-08 18:46] LABS: Bacteria,Urine Trace /lpf
[2023-06-08 18:48] LABS: Alanine Aminotransferase 19 U/L (12-78); Albumin Level 4.3 g/dl (3.5-5.0); Albumin/Globulin Ratio 1.5 (1.1-1.8); Alkaline Phosphatase 81 U/L (38-126); Anion Gap 10.2 mEq/L (5-15); Aspartate Amino Transferase 24 U/L (14-36); Bilirubin,Total 0.2 mg/dl (0.2-1.3); Blood Urea Nitrogen 7 mg/dl (7-17); Calcium 9.7 mg/dl (8.4-10.2); Carbon Dioxide 26 mmol/L (22.0-30.0); Chloride 106 mmol/L (98-107); Creatinine Clearance Estimated 154 mL/min (50-200); Estimated Glomerular Filt Rate 100 ml/min (>60); GFR (African American) 121 ML/MIN (>60); Globulin 2.8 g/dL (1.3-3.2); Glucose 98 mg/dl (74-100); Potassium 4.2 mmoL/L (3.5-5.1); Sodium 138 mmol/L (136-145); Total Protein,Serum 7.1 g/dl (6.3-8.2)
--- NOTE | 2023-06-08 18:56 | PC.NURSE ---
pt to CT scan
[2023-06-08] MEDS: IOPAMIDOL-370 (76%);100ML BOTTLE 75 ML IV (19:03)
[2023-06-08] MEDS: SODIUM CHLORIDE 0.9% 10ML SYR (RAD ONLY) 10 ML IV (19:03)
--- NOTE | 2023-06-08 19:25 | PC.NURSE ---
rounded on patient, states she feels better, given a blanket
[2023-06-08 19:30] VITALS: BP 98/65; PULSE 82; O2SAT 100
[2023-06-08 19:45] VITALS: BP 99/55; PULSE 80; O2SAT 100
[2023-06-08 20:13] VITALS: BP 95/63; PULSE 86; RESP 18; TEMP 37; O2SAT 98
== END 2023-06-08 20:17 | disposition home or self-care (01) ==
PROVIDERS: Physician Assistant; Emergency Provider Emergency Medicine; PCP Physician Assistant
DX: M54.59 Other low back pain (principal); R31.9 Hematuria, unspecified; F17.210 Nicotine dependence, cigarettes, uncomplicated; Z87.442 Personal history of urinary calculi
CPT/HCPCS: 71045; 74177; 80053; 81001; 84703; 85025; 96361; 96374; 96375; 99285; J0131; Q9967

== ENCOUNTER 2023-09-09 15:58 | Emergency (ER) | payer BC, SELFPAY ==
[2023-09-09 15:59] VITALS: BP 117/70; PULSE 80; RESP 18; TEMP 36.7; O2SAT 98; BMI 26.6
--- NOTE | 2023-09-09 16:29 | XR_ITS ---
PROCEDURE INFORMATION: Exam: XR Right Foot Exam date and time: 09/09/2023 4:34 PM Age: 28 years old Clinical indication: Pain; Foot; Right; Additional info: Pain, nki TECHNIQUE: Imaging protocol: Radiologic exam of the right foot. Views: 3 or more views. COMPARISON: CR Ankle R 09/09/2023 4:32 PM FINDINGS: Bones/joints: Small marginal osteophytes and degenerative changes involving the 1st MTP joint. Soft tissues: Mild soft tissue swelling without acute osseous abnormality. IMPRESSION: 1. Small marginal osteophytes and degenerative changes involving the 1st MTP joint. 2. Mild soft tissue swelling without acute osseous abnormality.
--- NOTE | 2023-09-09 16:29 | XR_ITS ---
PROCEDURE INFORMATION: Exam: XR Right Ankle Exam date and time: 09/09/2023 4:32 PM Age: 28 years old Clinical indication: Pain; Ankle; Right; Additional info: Pain, nki TECHNIQUE: Imaging protocol: Radiologic exam of the right ankle. Views: 3 or more views. COMPARISON: No relevant prior studies available. FINDINGS: Bones/joints: See Soft tissues finding. Soft tissues: Mild soft tissue swelling without acute osseous abnormality. IMPRESSION: Mild soft tissue swelling without acute osseous abnormality.
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
[2023-09-09 18:09] VITALS: BP 117/70; PULSE 80; RESP 18; TEMP 36.7; O2SAT 98
== END 2023-09-09 18:09 | disposition home or self-care (01) ==
PROVIDERS: Emergency Provider Nurse Practitioner Family; PCP Physician Assistant
DX: L55.0 Sunburn of first degree (principal); M19.071 Primary osteoarthritis, right ankle and foot; F17.210 Nicotine dependence, cigarettes, uncomplicated
CPT/HCPCS: 73610; 73630; 99212; 99214; G0463

== ENCOUNTER 2024-08-31 20:16 | Emergency (ER) | payer OTHER, SELFPAY ==
[2024-08-31 21:54] VITALS: BP 120/81; PULSE 78; RESP 16; TEMP 36.7; O2SAT 98; BMI 24.3
--- NOTE | 2024-08-31 22:30 | CT_ITS ---
PROCEDURE INFORMATION: Exam: CTA Chest With Contrast Exam date and time: 08/31/2024 11:36 PM Age: 29 years old Clinical indication: Pain; Chest pressure; Additional info: L lower chest pain/soa TECHNIQUE: Imaging protocol: Computed tomographic angiography of the chest with contrast. Exam focused on the arteries. 3D rendering (Not supervised by radiologist): MIP and/or 3D reconstructed images were created by the technologist. Radiation optimization: All CT scans at this facility use at least one of these dose optimization techniques: automated exposure control; mA and/or kV adjustment per patient size (includes targeted exams where dose is matched to clinical indication); or iterative reconstruction. Contrast material: ISOVUE; Contrast volume: 70 ml; Contrast route: INTRAVENOUS (IV); COMPARISON: CT ANGIO CHEST PE PROTOCOL 08/24/2021 12:00 PM FINDINGS: Pulmonary arteries: There is no evidence of filling defects within the pulmonary arterial circulation to suggest pulmonary embolism. Aorta: There is no evidence of an aortic aneurysm. There is no evidence of aortic dissection, leak, rupture, or other acute vascular pathology. Thyroid: The thyroid gland is normal. Thymus: A normal amount of residual thymus tissue is present in the anterior/superior mediastinum. Lungs: No focal areas of consolidation. There is a small nodular ground-glass focus in the right lower lobe measuring approximately 6.7 mm seen on series 5, image 70. There is a 4.6 mm subpleural nodule in the left lower lobe seen on series 1003, image 85. Pleural spaces: There are no pleural effusions. No pneumothorax. Heart: The heart is not enlarged. There is no evidence of pericardial fluid collections. Lymph nodes: Calcified left hilar lymph nodes indicate prior granulomatous disease. No pathologic adenopathy. Intraperitoneal space: Findings within the upper abdomen are described in the associated CT of the abdomen and pelvis report from the same date and time. Please reference that report for additional information. Bones/joints: The thoracic spine demonstrates mild degenerative changes at multiple levels. There is no evidence of acute fracture. Soft tissues: No significant soft tissue edema. IMPRESSION: 1. No evidence of pulmonary embolism. 2. Small nodular ground-glass focus in the right lower lobe measuring approximately 6.7 mm. If the patient does not have known cancer, follow up should be based on clinical information because of the low risk of cancer in this age group. (Reference: Vandana) 3. 4.6 mm subpleural nodule in the left lower lobe. If the patient does not have known cancer, follow up should be based on clinical information because of the low risk of cancer in this age group. (Reference: Vandana) REFERENCES: 1. Vandana Santiago, et al. Guidelines for Management of Incidental Pulmonary Nodules Detected on CT Images: From the Fleischner Society 2017. Radiology. 2017;284(1):228-243. 2. Christophehoelisabeth H, et al. Guidelines for Management of Incidental Pulmonary Nodules Detected on CT Images: From the Fleischner Society 2017. Radiology. 2017;284(1):228-243.
--- NOTE | 2024-08-31 22:30 | CT_ITS ---
PROCEDURE INFORMATION: Exam: CT Abdomen And Pelvis With Contrast Exam date and time: 08/31/2024 11:36 PM Age: 29 years old Clinical indication: Abdominal pain; Additional info: L flank/upper back/abd pain n/v TECHNIQUE: Imaging protocol: Computed tomography of the abdomen and pelvis with contrast. 3D rendering (Not supervised by radiologist): MIP and/or 3D reconstructed images were created by the technologist. Radiation optimization: All CT scans at this facility use at least one of these dose optimization techniques: automated exposure control; mA and/or kV adjustment per patient size (includes targeted exams where dose is matched to clinical indication); or iterative reconstruction. Contrast material: ISOVUE; Contrast volume: 70 ml; Contrast route: IV; COMPARISON: CT ABDOMEN PELVIS W CON 06/08/2023 6:57 PM FINDINGS: Liver: Normal. No mass. Gallbladder and biliary ducts: Normal. No calcified stones. No ductal dilation. Pancreas: The pancreas is normal. Spleen: There is a splenic calcification consistent with granulomatous disease. The spleen is otherwise within range of normal. Adrenal glands: The adrenal glands are normal. Kidneys and ureters: Normal. No hydronephrosis. Stomach and bowel: Apparent mild proximal gastric mural thickening could be on the basis of incomplete distension but cannot exclude gastritis or other inflammatory or infiltrative process. Correlate clinically. The duodenum is unremarkable. Lack of gastrointestinal contrast limits evaluation of bowel. The colon appears within range of normal. There is an equivocal area of mural thickening involving a loop of small bowel in the left upper quadrant. Evaluation is limited due to lack of gastrointestinal contrast. A few images raise the question of possible intussusception. This is best seen on series 4 images 27-33, and series 5, images 34-40. Correlate clinically. Remaining unopacified loops of small bowel are within range of normal. Appendix: A normal appendix is identified. Intraperitoneal space: No evidence of intraperitoneal free air. There is a trace amount of free fluid in the right pelvis. Vasculature: There are a few benign phleboliths in the pelvis. No aneurysm or dissection. Lymph nodes: No enlarged lymph nodes. Urinary bladder: The bladder is decompressed, and not optimally evaluated. Reproductive: The uterus is normal. There is a 2.1 x 2.7 x 2.3 cm cyst in the right ovary likely reflecting benign functional cyst. The left ovary is within range of normal. Bones/joints: There is no evidence of acute fracture. Soft tissues: No significant soft tissue edema. Other findings: Findings within the lower chest are described in the associated CT of the chest report from the same date and time. Please reference that report for additional information. IMPRESSION: 1. Equivocal mural thickening involving a loop of small bowel in the left upper quadrant. Evaluation is limited due to lack of gastrointestinal contrast. A few images raise the question of possible intussusception. Correlate clinically. Additional evaluation with gastrointestinal contrast could be performed, as clinically warranted. 2. Apparent mild proximal gastric mural thickening could be on the basis of incomplete distension but cannot exclude gastritis or other inflammatory or infiltrative process. Correlate clinically. 3. 2.1 x 2.7 x 2.3 cm cyst in the right ovary likely reflecting benign functional cyst. 4. Trace/physiologic amount of pelvic free fluid.
[2024-08-31 22:35] LABS: Appearance,Urine CLEAR (Clear); Bilirubin,Urine Negative (Negative); Blood, Urine Negative (Negative); Color,Urine YELLOW (Yellow); Glucose,Urine (UA) Negative (Negative); Ketones,Urine TRACE (Negative); Leukocyte Esterase,Urine Negative (Negative); Microscopic, Urine URINE MICROSCOPIC (MICROSCOPIC); Nitrate,Urine Negative (Negative); Protein,Urine Negative (Negative); Specific Gravity, Urine 1.025 (1.005-1.030); Urobilinogen,Urine 0.2 EU/dl (0.2)
[2024-08-31 22:47] LABS: Urine Pregnancy, HCG Qual. Negative (Negative)
--- NOTE | 2024-08-31 22:47 | ED_ITS ---
Discharge Plan Disposition Patient Disposition: Home, Self-Care Prescriptions Prescriptions: No Action loratadine 10 mg tablet,disintegrating 10 mg PO DAILY Patient Comments: DISSOLVE 1 TABLET BY MOUTH ONCE DAILY albuterol sulfate 90 mcg/actuation HFA aerosol inhaler 2 inh IH Q4HP PRN (Reason: asthma) Qty: 8.5 3RF Referrals Follow up/Referrals: Princess Brothers PA [Primary Care Provider] - See instructions Activity Restrictions/Add. Instructions Additional Instructions/Restrictions: Please follow-up with your primary care provider. Please return to the emergency department if you develop any new or worsening symptoms or become concerned for your health. Clinical Impressions Clinical Impression: Left flank pain, Vomiting, Enteritis Print Language Print Language: [place] Discharge ED Provider: Cooper Brown General Adult HPI <Lora Alex DO - Last Filed: 08/31/24 23:58> General Chief complaint: PAIN Stated complaint: Pain on lft side, vomiting for a few days Time Seen by Provider: 08/31/24 22:07 Mode of Arrival: Ambulatory Source of Information: Patient Description of Symptoms (Recalled from ER Triage Doc. by RN): c/o pain to left flank area x 3 days, c/o vomiting and not able to eat anything x 3 days History of Present Illness HPI narrative: This patient is a 29-year-old female with a history of depression, anxiety, reactive airway disease, and vape nicotine use presenting to the emergency department for evaluation with concern for left-sided flank/lower rib pain. She states that it has been going on for 3 days and she has had intractable nausea, vomiting, and inability to eat or drink anything. She states she has a history of kidney stones and is not sure if that is what is going on or if it could be something else. She does note that she has been feeling mildly short of breath and has had some mild pain in her right calf. She does not take control denies any history of blood clots or clotting disorders. She has no anterior chest pain, abdominal pain, changes in bowel movements, or notable urinary symptoms. Related Data Home Medications ?Medication ?Instructions ?Recorded ?Confirmed loratadine 10 mg disintegrating 10 mg PO DAILY 10/15/22 09/17/23 tablet Previous Rx's ?Medication ?Instructions ?Recorded albuterol sulfate 90 mcg/actuation 2 inh inhalation Q4HP PRN asthma 04/10/23 aerosol inhaler #8.5 grams Allergies Allergy/AdvReac Type Severity Reaction Status Date / Time No Known Allergies Allergy Verified 09/17/23 14:25 PFSH <Lora Alex DO - Last Filed: 08/31/24 23:58> [facility] Disclaimer: The information contained in this section may have been updated after the patient was seen, as this information can be updated by other users. Medical History History of lipoma Panic attack Anxiety Anemia Migraine Surgical History Hx of tubal ligation Hx of laparoscopy Hx of section Hx of tonsillectomy Family History Other Family history of pulmonary hypertension No significant family history Social History Smoking Status: Current every day smoker tobacco type: cigarettes packs per day: 1 years smoked: 12 alcohol intake: never substance use type: marijuana current occupational status: other Travel in the last 8 weeks?: None household members: spouse and children housing: house Have you lived/traveled outside [place] in past 30 days?: No Contact w/someone who lives/traveled outside US past 30 days?: No Exposure to someone with infectious disease in past 14 days?: No Do you have a fever (greater than 100.4 F or 38 C)?: No Have you tested positive for COVID-19?: No Exposed to someone with COVID-19 in past 14 days?: No Do you have a sore throat?: No Do you have a cough?: No Do you have any weakness?: No Do you have any diarrhea?: No Are you experiencing any unusual bleeding?: No Do you have any muscle aches/pain?: No Do you have any abdominal pain?: No Are you experiencing loss of taste or smell?: No Other Medical History Have you received the Flu Vaccine for this season: No Have you received the Pneumonia Vaccine: No <Lora Alex DO - Last Filed: 08/31/24 23:58> ROS Obtained: Yes All systems reviewed & no additional complaints except as documented Physical Exam <Lora Alex DO - Last Filed: 08/31/24 23:58> General General appearance: alert and in no apparent distress Head Head exam: atraumatic and normocephalic Eye Eye exam: Present normal appearance, PERRL and EOMI ENT ENT exam: Present normal exam, normal oropharynx, mucous membranes moist and normal external ear exam Neck Neck exam: Present normal inspection, full ROM and trachea midline; Absent tenderness Chest Chest inspection: Present normal inspection and symmetric chest wall rise; Absent tenderness Respiratory Respiratory exam: Present other (Rhonchi noted in the left lung base); Absent respiratory distress, wheezes, stridor or accessory muscle use Cardiovascular Cardiovascular exam: Present regular rate and normal rhythm Abdominal Exam Abdominal exam: Present soft; Absent distention, tenderness or guarding Extremities Exam Extremities exam: Present normal inspection, full ROM and normal capillary refill; Absent tenderness or edema Back Exam Back exam: Present full ROM and CVA tenderness (L) Neurological Exam Neurological exam: Present alert, oriented X3, CN II-XII intact and normal gait; Absent motor sensory deficit Psychiatric Psychiatric exam: Present normal affect and normal mood Skin Skin exam: Present warm and dry Medical Decision Making <Lora Alex, DO - Last Filed: 08/31/24 23:58> Medical Records Medical records reviewed: Yes I reviewed the patient's medical records. Screening: Per USPSTF and CDC recommendations, given the prevalence of disease in our region, it is our hospital?s policy to screen for HIV and viral Hepatitis for all patients aged 18 and over and those with ongoing risk factors. Min Inquiry Pt receiving controlled substance: No Vital Signs: 08/31/24 21:54 09/01/24 01:21 Temperature 98.1 F 98.4 F Temperature Source Oral Oral Pulse Rate 80 Pulse Rate [Right Brachial] 78 Respiratory Rate 16 14 Blood Pressure 118/72 Blood Pressure [Left Arm] 120/81 Blood Pressure Mean [Left Arm] 94 Blood Pressure Source Automatic Cuff Blood Pressure Source [Left Arm] Automatic Cuff Blood Pressure Position Sitting Blood Pressure Position [Left Arm] Sitting 02 Sat by Pulse Oximetry 98 Oxygen Delivery Method Room Air Room Air Lab Data Lab results reviewed: Yes I reviewed the patient's lab results. Lab Results 08/31/24 22:00: Urine Color Yellow, Urine Appearance Clear, Urine pH 6.0, Ur Specific [place] 1.025, Urine Protein Negative, Urine Glucose (UA) Negative, Urine Ketones Trace, Urine Blood Negative, Urine Nitrate Negative, Urine Bilirubin Negative, Urine Urobilinogen 0.2, Ur Leukocyte Esterase Negative, Urine RBC 3-5, Urine WBC Occasional, Ur Squamous Epith Cells 5-10, Urine Bacteria 2+, Urine Mucus 4+, Urine HCG, Qual Negative 08/31/24 22:43: WBC 11.6 H, RBC 4.44, Hgb 11.8 L, Hct 37.0, MCV 83.3, MCH 26.6 L , MCHC 31.9, RDW 15.4, Plt Count 307, MPV 11.5 H, Neut % (Auto) 72.7, Lymph % (Auto) 19.7, [place] % (Auto) 3.9, Eos % (Auto) 2.6, Baso % (Auto) 0.8, Neut # (Auto) 8.4 H, Lymph # (Auto) 2.3, [place] # (Auto) 0.5, Eos # (Auto) 0.3, Baso # (Auto) 0.1, Sodium 136, Potassium 3.6, Chloride 102, Carbon Dioxide 27, Anion Gap 10.6, BUN 8, Creatinine 0.70, Estimated Creat Clear 124, Estimated GFR 99, Est GFR ( Amer) 120, Glucose 148 H, Calcium 9.2, Total Bilirubin 0.4, AST 23, ALT 18, Alkaline Phosphatase 48, Troponin I < 0.01, Total Protein 7.3, Albumin 4.6, Globulin 2.7, Albumin/Globulin Ratio 1.7, Lipase 333 H 08/31/24 22:43 08/31/24 22:43 Orders (Tests/Meds): ED MEDICATIONS Discontinued Medications Generic Name Dose Route Start Last Admin Trade Name Freq PRN Reason Stop Dose Admin Lactated Ringer's 1,000 mls @ 999 mls/hr 08/31/24 22:32 08/31/24 22:51 Lactated Ringer's 1000 Ml Bag IV 08/31/24 23:32 999 mls/hr .Q1H1M ONE Administration Iopamidol 70 ml 08/31/24 23:39 08/31/24 23:40 Iopamidol-370 (76%);100ml Bottle IV 08/31/24 23:40 70 ml ONCE ONE Administration Ketorolac Tromethamine 15 mg 08/31/24 22:32 08/31/24 22:52 Ketorolac 30mg/Ml Vial IV 08/31/24 22:33 15 mg ONCE ONE Administration Ondansetron HCl 4 mg 08/31/24 22:32 08/31/24 22:51 Ondansetron 4mg/2ml Vial IV 08/31/24 22:33 4 mg ONCE ONE Administration Sodium Chloride 50 ml 08/31/24 23:39 08/31/24 23:40 0.9 % Sodium Chloride 50 Ml Vial IV 08/31/24 23:40 50 ml ONCE ONE Administration Sodium Chloride 10 ml 08/31/24 23:39 08/31/24 23:39 Sodium Chloride 0.9% 10ml Syr (Rad Only) IV 09/30/24 23:38 10 ml NEEDED PRN Administration Maintain IV Site ORDERS Category Date Time Status CT abdomen pelvis w con Stat Cat Scan 08/31/24 22:30 Completed CTA Chest [CT angio chest PE protocol] Stat Cat Scan 08/31/24 22:30 Completed Complete Blood Count Auto Diff Stat Lab 08/31/24 22:43 Completed Comprehensive Metabolic Panel Stat Lab 08/31/24 22:43 Completed Lipase Stat Lab 08/31/24 22:43 Completed Trop I [Troponin I] Stat Lab 08/31/24 22:43 Completed UA [Urinalysis and Microscopic] Stat Lab 08/31/24 22:00 Completed Urine , HCG Qual. Stat Lab 08/31/24 22:00 Completed Urine Culture Stat Micro 08/31/24 22:00 Received ECG Data Tracing #1: I reviewed this ECG and interpreted as documented below: Normal sinus rhythm with a ventricular to [address] changes concerning for ischemia. Normal interval ECG initial impression date: 08/31/24 ECG initial impression time: 23:54 Medical Decision Narrative: In summary, this patient is a 29-year-old female presenting to the Emergency Department for evaluation of left lower rib/flank pain, nausea, and vomiting. Differential diagnoses considered include but are not limited to pneumonia, PE, gastritis, gastroenteritis, peptic ulcer disease, pyelonephritis, ureterolithiasis, colitis. Ruling out the most morbid conditions drove assessment. It should be noted patient's history includes reactive airway disease, anxiety which may or may not be at goal therapy. This complicates all aspects of care by increasing patient's risk for morbidity. On exam, the patient is sitting upright in no acute distress with reassuring vital signs and cardiac telemetry. She has left lower lung rhonchi with pleuritic pain, left CVA tenderness. She notes she has had some right calf pain and swelling, though exam is normal at this time. Workup included CBC, CMP, troponin, lipase, urinalysis, urine test, CTA PE protocol, CT abdomen pelvis with IV contrast. She was given a bolus of IV fluids as well as IV Toradol and Zofran for symptomatic improvement. She took Tylenol prior to arrival.. On reassessment, patient is resting comfortably with reassuring vital signs. Labs demonstrated very mild leukocytosis. Chemistry is reassuring with normal kidney function, normal liver enzymes. Lipase is very mildly elevated in the setting of vomiting, which is nonspecific. Urinalysis demonstrates 3-5 red blood cells and 5-10 squamous cells. There is 2+ bacteria with contamination with squamous cells. She does not have any overt urinary symptoms, such as dysuria, urinary urgency, urinary frequency. CT scans pending at time of signout to oncoming provider, Dr. Brown. <Cooper Brown MD - Last Filed: 09/01/24 02:00> Vital Signs: 08/31/24 21:54 09/01/24 01:21 Temperature 98.1 F 98.4 F Temperature Source Oral Oral Pulse Rate 80 Pulse Rate [Right Brachial] 78 Respiratory Rate 16 14 Blood Pressure 118/72 Blood Pressure [Left Arm] 120/81 Blood Pressure Mean [Left Arm] 94 Blood Pressure Source Automatic Cuff Blood Pressure Source [Left Arm] Automatic Cuff Blood Pressure Position Sitting Blood Pressure Position [Left Arm] Sitting 02 Sat by Pulse Oximetry 98 Oxygen Delivery Method Room Air Room Air Lab Data Lab Results 08/31/24 22:00: Urine Color Yellow, Urine Appearance Clear, Urine pH 6.0, Ur Specific [place] 1.025, Urine Protein Negative, Urine Glucose (UA) Negative, Urine Ketones Trace, Urine Blood Negative, Urine Nitrate Negative, Urine Bilirubin Negative, Urine Urobilinogen 0.2, Ur Leukocyte Esterase Negative, Urine RBC 3-5, Urine WBC Occasional, Ur Squamous Epith Cells 5-10, Urine Bacteria 2+, Urine Mucus 4+, Urine HCG, Qual Negative 08/31/24 22:43: WBC 11.6 H, RBC 4.44, Hgb 11.8 L, Hct 37.0, MCV 83.3, MCH 26.6 L , MCHC 31.9, RDW 15.4, Plt Count 307, MPV 11.5 H, Neut % (Auto) 72.7, Lymph % (Auto) 19.7, [place] % (Auto) 3.9, Eos % (Auto) 2.6, Baso % (Auto) 0.8, Neut # (Auto) 8.4 H, Lymph # (Auto) 2.3, [place] # (Auto) 0.5, Eos # (Auto) 0.3, Baso # (Auto) 0.1, Sodium 136, Potassium 3.6, Chloride 102, Carbon Dioxide 27, Anion Gap 10.6, BUN 8, Creatinine 0.70, Estimated Creat Clear 124, Estimated GFR 99, Est GFR ( Amer) 120, Glucose 148 H, Calcium 9.2, Total Bilirubin 0.4, AST 23, ALT 18, Alkaline Phosphatase 48, Troponin I < 0.01, Total Protein 7.3, Albumin 4.6, Globulin 2.7, Albumin/Globulin Ratio 1.7, Lipase 333 H Orders (Tests/Meds): ED MEDICATIONS Discontinued Medications Generic Name Dose Route Start Last Admin Trade Name Freq PRN Reason Stop Dose Admin Lactated Ringer's 1,000 mls @ 999 mls/hr 08/31/24 22:32 08/31/24 22:51 Lactated Ringer's 1000 Ml Bag IV 08/31/24 23:32 999 mls/hr .Q1H1M ONE Administration Iopamidol 70 ml 08/31/24 23:39 08/31/24 23:40 Iopamidol-370 (76%);100ml Bottle IV 08/31/24 23:40 70 ml ONCE ONE Administration Ketorolac Tromethamine 15 mg 08/31/24 22:32 08/31/24 22:52 Ketorolac 30mg/Ml Vial IV 08/31/24 22:33 15 mg ONCE ONE Administration Ondansetron HCl 4 mg 08/31/24 22:32 08/31/24 22:51 Ondansetron 4mg/2ml Vial IV 08/31/24 22:33 4 mg ONCE ONE Administration Sodium Chloride 50 ml 08/31/24 23:39 08/31/24 23:40 0.9 % Sodium Chloride 50 Ml Vial IV 08/31/24 23:40 50 ml ONCE ONE Administration Sodium Chloride 10 ml 08/31/24 23:39 08/31/24 23:39 Sodium Chloride 0.9% 10ml Syr (Rad Only) IV 09/30/24 23:38 10 ml NEEDED PRN Administration Maintain IV Site ORDERS Category Date Time Status CT abdomen pelvis w con Stat Cat Scan 08/31/24 22:30 Completed CTA Chest [CT angio chest PE protocol] Stat Cat Scan 08/31/24 22:30 Completed Complete Blood Count Auto Diff Stat Lab 08/31/24 22:43 Completed Comprehensive Metabolic Panel Stat Lab 08/31/24 22:43 Completed Lipase Stat Lab 08/31/24 22:43 Completed Trop I [Troponin I] Stat Lab 08/31/24 22:43 Completed UA [Urinalysis and Microscopic] Stat Lab 08/31/24 22:00 Completed Urine , HCG Qual. Stat Lab 08/31/24 22:00 Completed Urine Culture Stat Micro 08/31/24 22:00 Received Medical Decision Narrative: In summary, this patient is a 29-year-old female presenting to the Emergency Department for evaluation of left lower rib/flank pain, nausea, and vomiting. Differential diagnoses considered include but are not limited to pneumonia, PE, gastritis, gastroenteritis, peptic ulcer disease, pyelonephritis, ureterolithiasis, colitis. Ruling out the most morbid conditions drove assessment. It should be noted patient's history includes reactive airway disease, anxiety which may or may not be at goal therapy. This complicates all aspects of care by increasing patient's risk for morbidity. On exam, the patient is sitting upright in no acute distress with reassuring vital signs and cardiac telemetry. She has left lower lung rhonchi with pleuritic pain, left CVA tenderness. She notes she has had some right calf pain and swelling, though exam is normal at this time. Workup included CBC, CMP, troponin, lipase, urinalysis, urine test, CTA PE protocol, CT abdomen pelvis with IV contrast. She was given a bolus of IV fluids as well as IV Toradol and Zofran for symptomatic improvement. She took Tylenol prior to arrival.. On reassessment, patient is resting comfortably with reassuring vital signs. Labs demonstrated very mild leukocytosis. Chemistry is reassuring with normal kidney function, normal liver enzymes. Lipase is very mildly elevated in the setting of vomiting, which is nonspecific. Urinalysis demonstrates 3-5 red blood cells and 5-10 squamous cells. There is 2+ bacteria with contamination with squamous cells. She does not have any overt urinary symptoms, such as dysuria, urinary urgency, urinary frequency. CT scans pending at time of signout to oncoming provider, Dr. Brown. Stephanie ARANGO: I assumed care of the patient at the time of handoff from the prior provider. On reassessment patient reports symptomatic improvement. CT imaging independently interpreted by me, shows a inflamed loop of small bowel in the left upper quadrant as well as some gastritis. CT chest has a couple small nodules but given size and patient a they are not clinically concerning at this time. These findings were communicated with patient and she was discharged in stable condition. Return precautions given. Critical Care <Lora Alex, DO - Last Filed: 08/31/24 23:58> Critical Care Time Critical Care Time: No
[2024-08-31 22:51] LABS: Basophils # 0.1 K/mm3 (0-0.2); Basophils % 0.8 % (0.1-2.0); Eosinophils # 0.3 Kmm3 (0.0-0.4); Eosinophils % 2.6 % (0.1-12.0); Hemoglobin 11.8 g/dL (12.2-16.2); Immature Granulocytes # 0.03 10^3uL; Immature Granulocytes % 0.3 %; Lymphocytes # 2.3 K/mm3 (0.7-4.5); Lymphocytes % 19.7 % (10-50); Mean Corpuscular HGB Conc 31.9 g/dL (31.8-35.4); Mean Corpuscular Hemoglobin 26.6 pg (27.0-31.2); Mean Corpuscular Volume 83.3 fl (81-99); Mean Platelet Volume 11.5 fl (7.4-10.4); Monocytes # 0.5 K/mm3 (0.1-1.0); Monocytes % 3.9 % (1.7-9.3); Neutrophils # 8.4 K/mm3 (1.8-7.8); Neutrophils % 72.7 % (37.0-80.0); Nucleated Red Blood Cells # 0 10^3/uL; Nucleated Red Blood Cells % 0 %; Platelet Count 307 K/mm3 (142-424); Red Blood Count 4.44 M/mm3 (4.20-5.40); Red Cell Distribution Width 15.4 % (11.5-17.5); White Blood Count 11.6 K/mm3 (4.8-10.8)
[2024-08-31] MEDS: LACTATED RINGERS 1000ML 1,000 ML 999 ML IV (22:51)
[2024-08-31] MEDS: ONDANSETRON 4MG/2ML VIAL 4 MG IV (22:51)
[2024-08-31] MEDS: KETOROLAC 30MG/ML VIAL 15 MG IV (22:52)
[2024-08-31 23:00] LABS: Alanine Aminotransferase 18 U/L (12-78); Albumin Level 4.6 g/dl (3.5-5.0); Albumin/Globulin Ratio 1.7 (1.1-1.8); Alkaline Phosphatase 48 U/L (38-126); Anion Gap 10.6 mEq/L (5-15); Aspartate Amino Transferase 23 U/L (14-36); Bilirubin,Total 0.4 mg/dl (0.2-1.3); Blood Urea Nitrogen 8 mg/dl (7-17); Calcium 9.2 mg/dl (8.4-10.2); Carbon Dioxide 27 mmol/L (22.0-30.0); Chloride 102 mmol/L (98-107); Creatinine Clearance Estimated 124 mL/min (50-200); Estimated Glomerular Filt Rate 99 ml/min (>60); GFR (African American) 120 ML/MIN (>60); Globulin 2.7 g/dL (1.3-3.2); Glucose 148 mg/dl (74-100); Lipase 333 U/L (23-300); Potassium 3.6 mmoL/L (3.5-5.1); Sodium 136 mmol/L (136-145); Total Protein,Serum 7.3 g/dl (6.3-8.2)
[2024-08-31 23:10] LABS: Bacteria,Urine 2+ /lpf; Mucus,Urine 4+ /lpf; WBC,Urine Occasional #/hpf (0-3)
[2024-08-31 23:15] LABS: Troponin I < 0.01 ng/ml (0.00-0.034)
[2024-08-31] MEDS: SODIUM CHLORIDE 0.9% 10ML SYR (RAD ONLY) 10 ML IV (23:39)
[2024-08-31] MEDS: IOPAMIDOL-370 (76%);100ML BOTTLE 70 ML IV (23:40)
[2024-08-31] MEDS: 0.9 % SODIUM CHLORIDE 50 ML VIAL IV (23:40)
--- NOTE | 2024-08-31 23:51 | ECG_ITS ---
APPROVED REPORT Exam: Resting ECG HR:60 bpm ECG Measurements Heart Rate 60 AXES IN 134 P 69 QRSd 84 QRS 76 QT 398 T 66 QTc 398 Conclusion SINUS RHYTHM NORMAL ECG UNCONFIRMED REPORT Electronically signed by : KENYATTA ROBERTS, 09/01/2024 06:53:06
[2024-09-01 01:21] VITALS: BP 118/72; PULSE 80; RESP 14; TEMP 36.9; O2SAT 100
== END 2024-09-01 01:23 | disposition home or self-care (01) ==
PROVIDERS: Emergency Medicine; Emergency Provider Emergency Medicine; PCP Physician Assistant
DX: R10.32 Left lower quadrant pain (principal); K52.9 Noninfective gastroenteritis and colitis, unspecified; R11.2 Nausea with vomiting, unspecified; F17.210 Nicotine dependence, cigarettes, uncomplicated
CPT/HCPCS: 71275; 74177; 80053; 81001; 81025; 83690; 84484; 85025; 87086; 93005; 96361; 96374; 96375; 99285; J1885; J2405; J7120; Q9967

== ENCOUNTER 2025-02-14 10:50 | Emergency (ER) | payer OTHER, SELFPAY ==
[2025-02-14 10:55] VITALS: BP 133/94; PULSE 101; RESP 16; TEMP 36.8; O2SAT 99; BMI 21.9
--- NOTE | 2025-02-14 11:02 | XR_ITS ---
FINAL REPORT CLINICAL HISTORY: blunt trauma toes 1-2 and distal foot small anterior lac on big toe COMPARISON: 09/09/2023 FINDINGS: LEFT FOOT Three views of the left foot demonstrate no acute fracture or dislocation. The visualized joint spaces are normally aligned. The soft tissues are unremarkable. IMPRESSION: No acute bony abnormality. Reviewed, Interpreted and Dictated by Bekah Noel MD Transcribed by Anila Oliveira Authenticated and [facility]
--- NOTE | 2025-02-14 11:07 | HMH.EDGENADL ---
Discharge Plan Disposition Patient Disposition: Home, Self-Care Prescriptions Prescriptions: No Action loratadine 10 mg tablet,disintegrating 10 mg PO DAILY Patient Comments: DISSOLVE 1 TABLET BY MOUTH ONCE DAILY dicyclomine 10 mg capsule 10 mg PO QID PRN (Reason: abdominal pain) Qty: 120 2RF albuterol sulfate 90 mcg/actuation HFA aerosol inhaler 2 inh IH Q4HP PRN (Reason: asthma) Qty: 8.5 3RF Referrals Follow up/Referrals: Princess Brothers PA [Primary Care Provider, Medical] - See instructions Activity Restrictions/Add. Instructions Additional Instructions/Restrictions: At this time it was felt you are safe to be discharged home. If new or worsening symptoms please do not hesitate to return the emergency department. Please stay off of your feet for a couple of days due to pain however it is okay to bear weight as tolerated in your Hard sole shoe. For pain please take Tylenol 1000 mg and ibuprofen 600 mg every 6 hours as needed with little bit of food is okay to take them at the same time. Call and schedule appointment for next week sometime with Dr. Romero. Clinical Impressions Clinical Impression: Fractured great toe, Abrasion of great toe Print Language Print Language: Haitian Discharge ED Provider: Sylvester Pearl General Adult HPI General Chief complaint: Extremity Injury, Lower Stated complaint: AO 02/14/2025 left foot pain Time Seen by Provider: 02/14/25 10:54 Mode of Arrival: Ambulatory Source of Information: Patient Description of Symptoms (Recalled from ER Triage Doc. by RN): PATIENT PRESENTS TO ED FROM HOME FOR LEFT FOOT PAIN S/P DROPPING A 30 LB DUMBBELL ON HER FOOT. OPEN WOUND NOTED TO BIG TOE, UNABLE TO BEAR WEIGHT. PT STATES SHE CANNOT MOVE THE FIRST 3 TOES ON THE FOOT. History of Present Illness HPI narrative: Patient is a 30-year-old female no pertinent past medical history tetanus not up-to-date presents emergency department for evaluation of blunt trauma over her foot. Patient dropped a dumbbell that was metal over the distal dorsal foot causing significant pain over her great and second toe as well as distal foot. Limited ability to bear weight since. No other acute traumatic complaints at this time. Please note that above description of symptoms, in this electronic medical record under categorization of recalled from ER triage doctor by RN are reflective of an initial nursing assessment, however, is not reflective of my full history and physical exam that was personally taken and clarified. Consequentially, this preceding description of symptoms, which may include the patient's categorized chief complaint in the EMR, do not reflect my personal clinical impression, and the ultimate description of history of present illness and patient stated complaints should be deferred to this section of the note. Unless stated otherwise or congruent with this section of the note, additional signs, symptoms, or incongruence should be interpreted as inaccurate with my clinical impression. Related Data Home Medications ?Medication ?Instructions ?Recorded ?Confirmed loratadine 10 mg disintegrating 10 mg PO DAILY 10/15/22 11/25/24 tablet Previous Rx's ?Medication ?Instructions ?Recorded albuterol sulfate 90 mcg/actuation 2 inh inhalation Q4HP PRN asthma 04/10/23 aerosol inhaler #8.5 grams dicyclomine 10 mg capsule 10 mg PO QID PRN abdominal pain 11/25/24 #120 caps Allergies Allergy/AdvReac Type Severity Reaction Status Date / Time No Known Allergies Allergy Verified 11/25/24 14:53 [facility] Disclaimer: The information contained in this section may have been updated after the patient was seen, as this information can be updated by other users. Medical History History of lipoma Panic attack Anxiety Anemia Migraine Surgical History Hx of tubal ligation Hx of laparoscopy Hx of section Hx of tonsillectomy Family History Other Family history of pulmonary hypertension No significant family history Social History Smoking Status: Current every day smoker tobacco type: e-cigarettes years smoked: 12 alcohol intake: never substance use type: marijuana current occupational status: other Travel in the last 8 weeks?: None household members: spouse and children housing: house Have you lived/traveled outside US in past 30 days?: No Contact w/someone who lives/traveled outside US past 30 days?: No Exposure to someone with infectious disease in past 14 days?: No Do you have a fever (greater than 100.4 F or 38 C)?: No Have you tested positive for COVID-19?: No Exposed to someone with COVID-19 in past 14 days?: No Do you have a sore throat?: No Do you have a cough?: No Do you have any weakness?: No Do you have any diarrhea?: No Are you experiencing any unusual bleeding?: No Do you have any muscle aches/pain?: No Do you have any abdominal pain?: No Are you experiencing loss of taste or smell?: No Other Medical History Have you received the Flu Vaccine for this season: No Have you received the Pneumonia Vaccine: No ROS Obtained: Yes Systems reviewed as appropriate & no additional complaints except as documented Physical Exam General General appearance: alert Comment: Appearing uncomfortable in bed. Head Head exam: atraumatic and normocephalic Eye Eye exam: Present PERRL and EOMI ENT ENT exam: Present mucous membranes moist Neck Neck exam: Present normal inspection Chest Chest inspection: Present normal inspection and symmetric chest wall rise Respiratory Respiratory exam: Absent respiratory distress Cardiovascular Cardiovascular exam: Present regular rate and normal rhythm Abdominal Exam Abdominal exam: Present soft Extremities Exam Extremities exam: Present other (Bleeding abrasion over the dorsal great toe. Significant tenderness over the great and second toe as well as the first MTP. Distally neurovascularly intact. Palpable dorsal pedal pulse. No tenderness over the medial or lateral malleolus) Neurological Exam Neurological exam: Present alert Psychiatric Psychiatric exam: Present normal affect Skin Skin exam: Present warm and dry Medical Decision Making Medical Records Screening: Per USPSTF and CDC recommendations, given the prevalence of disease in our region, it is our hospital?s policy to screen for HIV and viral Hepatitis for all patients aged 18 and over and those with ongoing risk factors. Min Inquiry Pt receiving controlled substance: No Vital Signs: 02/14/25 10:55 02/14/25 10:55 Temperature 98.2 F 98.2 F Temperature Source Oral Pulse Rate 101 H Pulse Rate [Right Radial] 101 H Respiratory Rate 16 16 Blood Pressure 133/94 H Blood Pressure [Right Arm] 133/94 H Blood Pressure Mean [Right Arm] 107 02 Sat by Pulse Oximetry 99 99 Orders (Tests/Meds): ED MEDICATIONS Discontinued Medications Generic Name Dose Route Start Last Admin Trade Name Freq PRN Reason Stop Dose Admin Acetaminophen 1,000 mg 02/14/25 11:02 Acetaminophen 500mg Tab PO 02/14/25 11:03 ONCE ONE Ibuprofen 600 mg 02/14/25 11:02 Ibuprofen 600 Mg Tablet PO 02/14/25 11:03 ONCE ONE Oxycodone HCl 5 mg 02/14/25 11:03 Oxycodone 5mg Immediate Release Tablet PO 02/14/25 11:04 ONCE ONE Tetanus/Reduced Diphtheria/Acell Pertussis 0.5 ml 02/14/25 11:02 02/14/25 11:40 Tet/Diphth/Pert-Adult 0.5ml Syringe IM 02/14/25 11:03 0.5 ml .ONCE ONE Administration ORDERS Category Date Time Status Foot XR left minimum 3 views [XR foot LT min 3V] Stat Exams 02/14/25 11:02 Taken Medical Decision Narrative: In summary patient is a 30-year-old female with no past medical history presents emergency department for evaluation of traumatic injury sustained in her foot. Patient is hemodynamically stable nontoxic-appearing upon arrival, afebrile. Based on history and physical exam limited trauma survey will be conducted with plain film of the left foot given that differential includes fracture, musculoskeletal strain, among others. Tdap will be updated. Initial inventions include multimodal pain control. X-ray informally interpreted by me there acute to be a nondisplaced fracture of the left great distal phalanx. The overlying abrasion is oozing but there is no significant laceration I do not consider this an open fracture. No other obvious significantly displaced fracture. Given this patient was placed in [place] shoe given crutches and will be weightbearing as tolerated and will follow-up on an outpatient basis. Procedure: Procedure performed was abrasion repair. Procedure performed with Abana and practical nursing faculty. Foot was soaked in Hibiclens and water, no discrete laceration identified on subsequent exam after wound was cleaned. There is an oozing abrasion which was sealed with Dermabond. Patient tolerated the procedure well there were no immediate complications. Critical Care Critical Care Time Critical Care Time: No
--- OUTSIDE RECORDS SUMMARY | 2025-02-14 11:21 | XMS_ITS | Clinical Summary ---
Author Organization [facility] Address [address] [place] [address] Care Team Providers Care Fishing Rod Trimmer Name Role Phone John Mercado Primary Care Provider [phone] Immunizations Immunization Administration Dates Next Due Hep B, adult 03/19/2018 Influenza, Unspecified 03/19/2018 Tdap 03/19/2018 Family History Medical History Relation Name Comments Cardiac disorder Sibling 1 Congenital heart disease Sibling 2 Relation Name Status Comments Sibling 1 Sibling 2 Social History Tobacco Use Types Packs/Day Years Used Date Smoking Tobacco: Every Day Alcohol Use Standard Drinks/Week Comments No 0 (1 standard drink = 0.6 oz pur e alcohol) Comments Unknown Sex and Gender Information Value Date Recorded Sex Assigned at Not on file Legal Sex Female 6:26 PM EDT Gender Identity Not on file Sexual Orientation Not on file Last Filed Vital Signs Vital Sign Reading Time Taken Comments Blood Pressure 120/60 07/09/2019 9:00 AM EDT Pulse - - Temperature - - Respiratory Rate - - Oxygen Saturation - - Inhaled Oxygen Concentration - - Weight 78.2 kg (172 lb 6.4 oz) 07/09/2019 9:00 A M EDT Height 160 cm (5' 3 ) 08/21/2016 9:03 AM EDT Body Mass Index 30.54 08/21/2016 9:03 AM EDT Plan of Treatment Health Maintenance Due Date Last Done Comments [facility]-Depression Screening 1995 [facility]-Infant/Child/Adol SDOH Screenings 1995 [facility]Y-Varicella Vaccines (1 of 2 - 13+ 2-dose series) 01/06/2008 [facility]- SDOH Screenings 2013 [facility]Y-Adult SDOH Screenings 2013 UKY-Hepatitis B Vaccines (2 of 3 - 19+ 3-dose series) 04/16/2018 03/19/2018 [facility]Y-Pap Smear 08/05/2021 08/05/2018, 04/24/2016 HPV Vaccines (1 - 3-dose SCDM series) 2022 [id number] Vaccine (1 - season) 2024 [facility]Y-Influenza Vaccine (#1) 2024 03/19/2018 [facility]-Cervical Cancer Screening 2025 [facility]Y-HPV/Cotest 2025 08/05/2018, 04/24/2016 [facility]Y-DTaP,Tdap,and Td Vaccines (2 - Td or Tdap) 03/19/2028 03/19/2018 UKY-Zoster Vaccines (1 of 2) 2045 [facility]Y-HIB Vaccines Aged Out No longer e ligible based on patient's age to complete this topic UKY-Hepatitis A Vaccines Aged Out No longer eligible based on patient's age to complete this topic UKY-IPV Vaccines Aged Out No longer e ligible based on patient's age to complete this topic UKY-Pneumococcal Vaccine: Pediatrics (0 to 5 Years) and At-Risk Patients (6 to 49 Years) Aged Out No longer eligible b ased on patient's age to complete this topic UKY-Rotavirus Vaccines Aged Out No lo nger eligible based on patient's age to complete this topic Procedures Procedure Name Priority Date/Time Associated Diagnosis Comments CYTO DATA CONVERSION Routine 08/05/2018 12:00 AM EDT from Last 3 Months or Most Recently Relevant to Health Maintenance Results * Cytology (08/05/2018 12:00 AM EDT) 08/05/2018 08/06/2018 9:3 5 AM EDT Narrative SUNQUEST - 08/13/2018 1:27 PM EDT [facility] MR #: [id number] [facility] [place] [place], [place] [address] 1995 (Age: 23) FW Collect Date: 08/05/2018 00:00 Receipt Date: 08/06/2018 09:35 Page 1 DEPARTMENT OF PATHOLOGY AND LABORATORY MEDICINE CYTOPATHOLOGY REPORT Email: [email or web address] ATTENDING MD/Practitioner: Santana Cobos MD Service: OBE [place] [facility] [place] Reported: 08/13/2018 13:27 Collected: 08/05/2018 00:00 INTERPRETATION A. THIN PREP (CERVICAL/VAGINAL): NEGATIVE FOR INTRAEPITHELIAL LESION OR MALIGNANCY. SATISFACTORY FOR EVALUATION; ENDOCERVICAL/ TRANSFORMATION ZONE COMPONENT PRESENT. Slide scanned and imaged by [employer] ThinPrep Imaging System with manual review of all selected wolff. Electronically Signed Out By GIOVANNI Bedolla (ASCP) GIOVANNI Miranda (ASCP) GIOVANNI Bedolla (ASCP) Cervical cytology is a screening test primarily for squamous cancers and precursors and has associated false negative and positive results. New technologies such as liquid based sampling may decrease but will not eliminate all false negative results. Regular screening and follow-up of unexplained clinical signs and symptoms are recommended to minimize false negative results. Please see the ASCCP website (www.asccp.org) for followup recommendations. If HPV testing was requested, correlation with the results is suggested (please call Microbiology at [phone] for results). CLINICAL INFORMATION: Menstrual History: Cyclic Date of Last Menstrual Period: 06/14/2018 SPECIMEN DESCRIPTION: A: THIN PREP (CERVICAL/VAGINAL) THIN PREP PROCESS CELLULAR ENHANCEMENT ICD: F: A; RT IMAGE 18208 SNOMED CODES: A; [id number] In cases where a pathologist has signed out the report, the service has been rendered in part by a resident. The signing pathologist has performed and is responsible for the reported pathologic evaluation. Dawson Cobos MD LAB PATHOLOGY ORDERABLES Final R esult SUNQUEST from Last 3 Months or Most Recently Relevant to Health Maintenance Insurance [facility] MEDICAID Care Teams Fishing Rod Trimmer Relationship Specialty Start [place] [address] PCP - General 08/18/20
--- OUTSIDE RECORDS SUMMARY | 2025-02-14 11:21 | XMS_ITS | Clinical Summary ---
[facility] Organization [facility] Address [address] [place] [address] Care Team Providers Care Energy Consultant Name Role Phone Princess Brothers Primary Care Provider [phone] Allergies No known active allergies Medications MV-Min-Fe Fum-FA-DHA ( 1 PO) Take 1 tablet by mouth daily. Active PROGESTERONE [place] Insert into the vagina every night. Active Social History Tobacco Use Types Packs/Day Years Used Date Smoking Tobacco: Every Day Alcohol Use Standard Drinks/Week Comments No 0 (1 standard drink = 0.6 oz pur e alcohol) Abuse Screen Answer Date Recorded Feels Unsafe at Home or Work/School no 09/03/2024 Feels Threatened by Someone no 08/07 Does Anyone Try to Keep You From Having Contact with Others or Doing Things Outside Your Home? no 09/03/2024 Physical Signs of Abuse Present no 09/03/2024 Comments Unknown Sex and Gender Information Value Date Recorded Sex Assigned at Not on file Legal Sex Female 6:26 PM EDT Gender Identity Not on file Sexual Orientation Not on file Last Filed Vital Signs Vital Sign Reading Time Taken Comments Blood Pressure 104/66 09/03/2024 9:30 PM EDT Pulse 67 09/03/2024 9:30 PM EDT Temperature 36.6 C (97.9 F) 09/03/2024 6:35 PM EDT Respiratory Rate 16 09/03/2024 6:34 PM EDT Oxygen Saturation 100% 09/03/2024 9:30 PM EDT Inhaled Oxygen Concentration - - Weight 66.2 kg (146 lb) 09/03/2024 6:34 PM EDT Height 165.1 cm (5' 5 ) 09/03/2024 6:34 PM EDT Body Mass Index 24.3 09/03/2024 6:34 PM EDT Plan of Treatment Health Maintenance Due Date Last Done Comments ANNUAL PHYSICAL 1995 Annual Gynecologic Pelvic and Breast Exam 1995 HEPATITIS C SCREENING 1995 Pneumococcal Vaccine 0-49 (1 of 2 - PCV) 2014 INFLUENZA VACCINE 11/05/2024 03/19/2018 TDAP/TD VACCINES (2 - Td or Tdap) 03/19/2028 018 Insurance [facility] PL[facility] Care Teams Energy Consultant Relationship Specialty Start Date End Date Princess Brothers PA [address] [place] [address] PCP - General Physician Esthetician And Manager Medical Spa 09/03/24
[2025-02-14] MEDS: TET/DIPHTH/PERT-ADULT 0.5ML SYRINGE 0.5 ML IM (11:40)
[2025-02-14] MEDS: ACETAMINOPHEN 500MG TAB 1000 MG PO (11:48)
[2025-02-14] MEDS: OXYCODONE 5MG IMMEDIATE RELEASE TABLET 5 MG PO (11:48)
[2025-02-14] MEDS: IBUPROFEN 600 MG TABLET PO (11:48)
--- NOTE | 2025-02-14 11:50 | PC.NURSE ---
patient given meds ordered by Dr Pearl. mary stated she cannot swallow pills . offered to see if provider can do liquid doses instead, patient stated she could try pills. patient stated she could only take hte oxycodone due to its small size, she would not attempt the others. provider notified.
[2025-02-14 12:18] VITALS: BP 112/76; PULSE 80; RESP 18; TEMP 36.8; O2SAT 98
== END 2025-02-14 12:31 | disposition home or self-care (01) ==
PROVIDERS: Emergency Provider Emergency Medicine; PCP Physician Assistant
DX: S92.425A Nondisplaced fracture of distal phalanx of left great toe, initial encounter for closed fracture (principal); S90.412A Abrasion, left great toe, initial encounter; W20.8XXA Other cause of strike by thrown, projected or falling object, initial encounter
CPT/HCPCS: 73630; 90471; 90715; 99283; 99285

== ENCOUNTER 2025-03-14 08:52 | Outpatient (CLI) | payer OTHER, SELFPAY ==
--- NOTE | 2025-03-14 09:30 | US_ITS ---
PROCEDURE: US TRANSVAGINAL CLINICAL INDICATION: dyspareunia COMPARISON: US US TRANSVAGINAL from 11/20/[address] ABDOMEN PELVIS W CON from 06/08/[address] ABDOMEN PELVIS W CON from 08/31/2024 FINDINGS: Transvaginal and transabdominal sonographic images of the pelvis were obtained. UTERUS: 10.0cm x 5.8 cmx 5.0cm anteverted with a combined endometrial thickness of 21.4 mm. This is more than what would be expected 1 week post menses. There is a hypoechoic area at the fundus of the uterus within the endometrium which may be a polyp. scar is present. LEFT OVARY: 3.6 cmx2.8 cmx1.8cm with a volume of 9.4ml. The left ovary is only seen transabdominally. RIGHT OVARY: 5.3cmx 4.2cmx4.5cm with a volume of 53ml. There is a simple cyst in the right ovary measuring 4.5 cm x 3.1 cm x 3.9 cm Both ovaries are seen. Doppler flow to both ovaries are seen. There is moderate fluid in the cul-de-sac. There is a small amount of fluid superior to the uterus. IMPRESSION: 1. Anteverted, bulky uterus. The endometrium is markedly thickened measuring 21.4 mm and there may be a polyp located here at the fundus. 2. The right ovary contains a simple cyst measuring 4.5 cm. Suggest repeat scan in 3 months. 3. The left ovary is only seen transabdominally and appears normal. 4. There is moderate fluid in the cul-de-sac and a small amount of fluid superior to the fundus of the uterus. Dictated by: Rony Roberson MD 03/14/2025 10:42 Rony Roberson MD in OV 03/14/2025 10:42
== END 2025-03-14 23:59 | disposition home or self-care (01) ==
LOC: RAD 08:52
PROVIDERS: PCP Physician Assistant; Visit Provider Nurse Practitioner Obstetrics & Gynecology
DX: N85.2 Hypertrophy of uterus (principal); N85.4 Malposition of uterus; N83.201 Unspecified ovarian cyst, right side; N94.10 Unspecified dyspareunia; R93.89 Abnormal findings on diagnostic imaging of other specified body structures
CPT/HCPCS: 76830

== ENCOUNTER 2025-03-23 23:03 | Emergency (ER) | payer OTHER, SELFPAY ==
--- OUTSIDE RECORDS SUMMARY | 2025-03-23 23:10 | XMS_ITS | Clinical Summary ---
[facility] Address [address] [place] [address] Care Team Providers Care Seat Cover Maker Name Role Phone Princess Brothers Primary Care Provider [phone] Allergies No known active allergies Medications MV-Min-Fe [...] - Td or Tdap) 03/19/2028 018 Insurance [facility] PLAN [facility] Care Teams Seat Cover Maker Relationship Specialty Start Date End Date Princess Brothers PA [address] [place] [address] PCP - General Physician Rehabilitation Tech 09/03/24
--- OUTSIDE RECORDS SUMMARY | 2025-03-23 23:10 | XMS_ITS | Clinical Summary ---
Author Organization [facility] Address [address] [place] [address] Care Team Providers Care Manager Cost Name Role Phone John Mercado Primary Care Provider [phone] Immunizations Immunization Administration Dates Next Due Hep [...] 04/16/2018 03/19/2018 [facility]-Pap Smear 08/05/2021 08/05/2018, 04/24/2016 [id number] Vaccine ( - season) 2024 [facility]Y-Influenza Vaccine (#1) 2024 03/19/2018 [facility]Y-Cervical Cancer Screening 2025 [facility]Y-HPV/Cotest 2025 08/05/2018, 04/24/2016 UKY-DTaP,Tdap,and Td Vaccines (2 - Td or Tdap) 03/19/2028 03/19/2018 UKY-Zoster Vaccines (1 of 2) 2045 HPV Vaccines (No Doses Required) Completed [facility]Y-HIB Vaccines Aged Out No longer e [...] Narrative SUNQUEST - 08/13/2018 1:27 PM EDT [facility] MR [facility] [id number] [facility] [place] [place] [place] [address] 1995 (Age: 23) FW Collect Date: 08/05/2018 00:00 Receipt Date: 08/06/2018 09:35 Page 1 DEPARTMENT OF PATHOLOGY AND LABORATORY MEDICINE CYTOPATHOLOGY REPORT Email: [email or web address] [phone] ATTENDING MD/Practitioner: Santana Cobos MD Service: OBE Location[place] [facility] [place] Reported: 08/13/2018 13:27 Collected: 08/05/2018 00:00 INTERPRETATION A. THIN PREP (CERVICAL/VAGINAL): NEGATIVE FOR INTRAEPITHELIAL LESION OR MALIGNANCY. SATISFACTORY FOR EVALUATION; ENDOCERVICAL/ TRANSFORMATION ZONE COMPONENT PRESENT. Slide scanned and imaged by [employer] ThinPrep Imaging System with manual review of [...] results is suggested (please call Microbiology at [phone] for results). CLINICAL INFORMATION: Menstrual History: Cyclic Date of Last Menstrual Period: 06/14/2018 SPECIMEN DESCRIPTION: A: THIN PREP (CERVICAL/VAGINAL) THIN PREP PROCESS CELLULAR ENHANCEMENT ICD: F: A; RT IMAGE [id number] SNOMED CODES: A; [id number] [id number] In cases where a pathologist has signed out the report, the service has been rendered in part by a resident. The signing pathologist has performed and is responsible for the reported pathologic evaluation. Dawson Cobos MD LAB PATHOLOGY ORDERABLES Final R esult SUNQUEST from Last 3 Months or Most Recently Relevant to Health Maintenance Insurance [facility] MEDICAID Care Teams Manager Cost Relationship Specialty Start [place] [address] PCP - General 08/18/20
--- NOTE | 2025-03-23 23:11 | XR_ITS ---
PROCEDURE INFORMATION: Exam: XR Abdomen Exam date and time: 03/23/2025 11:21 PM Age: 30 years old Clinical indication: Abdominal pain; Additional info: Abd distention, mild left side pain TECHNIQUE: Imaging protocol: Radiologic exam of the abdomen. Views: Frontal supine view of the abdomen. 1 View. Total images: 2 COMPARISON: CT ABDOMEN PELVIS W CON 08/31/2024 11:36 PM FINDINGS: Heart/Mediastinum: Normal heart size. Lungs: Lung bases are clear. Gastrointestinal tract: Nonspecific, nonobstructed bowel gas distribution. No significant colonic or rectal stool burden. No dilated small bowel. Intraperitoneal space: No free intraperitoneal air. Organs: No organomegaly or pathologic calcifications. Vasculature: Numerous pelvic phleboliths. Bones/joints: Unremarkable. Soft tissues: The peritoneal fascial planes are maintained. IMPRESSION: Nonspecific, nonobstructed bowel gas distribution.
--- NOTE | 2025-03-23 23:15 | [facility].EDGENADL ---
Discharge Plan Disposition Patient Disposition: Home, Self-Care Prescriptions Prescriptions: New ondansetron HCl 4 mg tablet 4 mg PO Q8H PRN (Reason: nausea and vomiting) 5 Days Qty: 30 0RF dicyclomine 10 mg/5 mL solution 10 mg PO QID PRN (Reason: pain) Qty: 473 2RF No Action loratadine 10 mg tablet,disintegrating 10 mg PO DAILY Patient Comments: DISSOLVE 1 TABLET BY MOUTH ONCE DAILY dicyclomine 10 mg capsule 10 mg PO QID PRN (Reason: abdominal pain) Qty: 120 2RF Classic 28 mg iron- 800 mcg tablet 1 tab PO DAILY Qty: 30 8RF albuterol sulfate 90 mcg/actuation HFA aerosol inhaler 2 inh IH Q4HP PRN (Reason: asthma) Qty: 8.5 3RF Referrals Follow up/Referrals: Princess Brothers PA [Primary Care Provider, Medical] - See instructions Activity Restrictions/Add. Instructions Additional Instructions/Restrictions: Please follow-up with your primary care provider. Please return to the emergency department if you develop any new or worsening symptoms or become concerned for your health. Clinical Impressions Clinical Impression: Abdominal bloating Instructions Patient Instructions: DI for Acute Abdominal Pain Print Language Print Language: Italian Discharge ED Provider: Cooper Brown General Adult HPI General Chief complaint: Abdominal Pain Stated complaint: L side abd pain, vomiting, swelling Time Seen by Provider: 03/23/25 23:04 History of Present Illness HPI narrative: 30-year-old female presents for abdominal bloating/swelling. States been going on for couple of days. It is associated with mild abdominal pain. She has vomited as well. She has a history of enlarged uterus with a polyp and is planning to have surgery on it soon. She has seen GI for abdominal bloating in the past. She reports normal bowel movements. Denies fever. Related Data Home Medications ?Medication ?Instructions ?Recorded ?Confirmed loratadine 10 mg disintegrating 10 mg PO DAILY 10/15/22 03/08/25 tablet Previous Rx's ?Medication ?Instructions ?Recorded albuterol sulfate 90 mcg/actuation 2 inh inhalation Q4HP PRN asthma 04/10/23 aerosol inhaler #8.5 grams dicyclomine 10 mg capsule 10 mg PO QID PRN abdominal pain 11/25/24 #120 caps vits no.126-ferrous fum 1 tab PO DAILY #30 tabs 03/08/25 28 mg iron-folic acid 800 mcg tablet (Classic ) ondansetron HCl 4 mg tablet 4 mg PO Q8H PRN nausea and 03/23/25 vomiting 5 days #30 tabs dicyclomine 10 mg/5 mL oral 10 mg (5 mL) PO QID PRN pain #473 03/24/25 solution mL Allergies Allergy/AdvReac Type Severity Reaction Status Date / Time No Known Allergies Allergy Verified 03/08/25 10:11 [facility] Disclaimer: The information contained in this section may have been updated after the patient was seen, as this information can be updated by other users. Medical History History of lipoma Panic attack Anxiety Anemia Migraine Surgical History Hx of tubal ligation Hx of laparoscopy Hx of section Hx of tonsillectomy Family History Other Family history of pulmonary hypertension No significant family history Social History Smoking Status: Current every day smoker tobacco type: e-cigarettes years smoked: 12 alcohol intake: never substance use type: marijuana current occupational status: other Travel in the last 8 weeks?: None household members: spouse and children housing: house Have you lived/traveled outside [place] in past 30 days?: No Contact w/someone who lives/traveled outside [place] past 30 days?: No Exposure to someone with infectious disease in past 14 days?: No Do you have a fever (greater than 100.4 F or 38 C)?: No Have you tested positive for COVID-19?: No Exposed to someone with COVID-19 in past 14 days?: No Do you have a sore throat?: No Do you have a cough?: No Do you have any weakness?: No Do you have any diarrhea?: No Are you experiencing any unusual bleeding?: No Do you have any muscle aches/pain?: No Do you have any abdominal pain?: Yes Are you experiencing loss of taste or smell?: No Other Medical History Have you received the Flu Vaccine for this season: No Have you received the Pneumonia Vaccine: No ROS Obtained: Yes All systems reviewed & no additional complaints except as documented Physical Exam General General appearance: alert and in no apparent distress Head Head exam: atraumatic and normocephalic Eye Eye exam: Present normal appearance, PERRL and EOMI ENT ENT exam: Present normal oropharynx and normal external ear exam Neck Neck exam: Present normal inspection and full ROM Chest Chest inspection: Present normal inspection and symmetric chest wall rise; Absent tenderness Respiratory Respiratory exam: Present normal lung sounds bilaterally; Absent respiratory distress Cardiovascular Cardiovascular exam: Present regular rate and normal rhythm Abdominal Exam Abdominal exam: Present soft, distention and tenderness (Minimal, generally left-sided); Absent guarding Extremities Exam Extremities exam: Present normal inspection; Absent edema or joint swelling Back Exam Back exam: Present normal inspection; Absent tenderness Neurological Exam Neurological exam: Present alert and oriented X3; Absent motor sensory deficit Psychiatric Psychiatric exam: Present normal affect and normal mood Skin Skin exam: Present warm, dry and normal color Lymphatic Lymphatic Findings: no adenopathy Medical Decision Making Medical Records Medical records reviewed: Yes I reviewed the patient's medical records. Screening: Per USPSTF and CDC recommendations, given the prevalence of disease in our region, it is our hospital?s policy to screen for HIV and viral Hepatitis for all patients aged 18 and over and those with ongoing risk factors. Min Inquiry Pt receiving controlled substance: No Min was queried for this patient: No Vital Signs: 03/23/25 23:16 03/24/25 00:05 Temperature 97.9 F 98.1 F Temperature Source Oral Oral Pulse Rate 91 H Pulse Rate [Right Radial] 117 H Respiratory Rate 16 16 Blood Pressure 105/72 L Blood Pressure [Right Arm] 137/105 H Blood Pressure Mean [Right Arm] 115 Blood Pressure Source Automatic Cuff Blood Pressure Source [Right Arm] Automatic Cuff Blood Pressure Position Supine Blood Pressure Position [Right Arm] Sitting 02 Sat by Pulse Oximetry 98 Oxygen Delivery Method Room Air Room Air Lab Data Lab results reviewed: Yes I reviewed the patient's lab results. Lab Results 03/23/25 23:13: WBC 10.9 H, RBC 4.15 L, Hgb 10.8 L, Hct 34.2 L, MCV 82.4, MCH 26.0 L, MCHC 31.6 L, RDW 16.1, Plt Count 280, MPV 11.7 H, Neut % (Auto) 44.9, Lymph % (Auto) 35.2, Cochran % (Auto) 5.2, Eos % (Auto) 13.7 H, Baso % (Auto) 0.9, Neut # (Auto) 4.9, Lymph # (Auto) 3.9, Cochran # (Auto) 0.6, Eos # (Auto) 1.5 H, Baso # (Auto) 0.1, Sodium 133 L, Potassium 4.4, Chloride 105, Carbon Dioxide 24, Anion Gap 8.4, BUN 11, Creatinine 0.90, Estimated Creat Clear 88, Estimated GFR 74, Est GFR ( Amer) 89, Glucose 87, Calcium 8.9, Total Bilirubin 0.7, AST 43 H, ALT 17, Alkaline Phosphatase 43, Total Protein 8.1, Albumin 5.0, Globulin 3.1, Albumin/Globulin Ratio 1.6, Lipase 112, HCV Ab PEE w/Rflx PCR Qn Negative, HIV Ag/Ab Combo Qual Negative 03/23/25 23:13 03/23/25 23:13 Orders (Tests/Meds): ED MEDICATIONS Discontinued Medications Generic Name Dose Route Start Last Admin Trade Name Freq PRN Reason Stop Dose Admin Acetaminophen 1,000 mg 03/23/25 23:11 03/23/25 23:29 Acetaminophen 500mg Tab PO 03/23/25 23:12 Not Given ONCE ONE Ketorolac Tromethamine 30 mg 03/23/25 23:14 03/23/25 23:28 Ketorolac 30mg/Ml Vial IV 03/23/25 23:15 30 mg ONCE ONE Administration Ondansetron HCl 4 mg 03/23/25 23:11 03/23/25 23:29 Ondansetron 4mg/2ml Vial IV 03/23/25 23:12 4 mg ONCE ONE Administration ORDERS Category Date Time Status KUB (single view) [XR KUB] Stat Exams 03/23/25 23:11 Completed CBC w/Auto Diff [Complete Blood Count Auto Diff] Stat Lab 03/23/25 23:13 Completed CMP [Comprehensive Metabolic Panel] Stat Lab 03/23/25 23:13 Completed HIV Combo Stat Lab 03/23/25 23:13 Completed Hepatitis C Ab Qual. W/ RFX Stat Lab 03/23/25 23:13 Completed Lipase Stat Lab 03/23/25 23:13 Completed Medical Decision Narrative: 30-year-old female with history of tubal ligation, PTSD, uterine polyps presents for a couple of days of abdominal distention and mild vomiting. History was obtained via interactive discussion with patient, chart review. On arrival, patient is [afebrile, hemodynamically stable, satting appropriately, alert, oriented x4, GCS 15], moving all extremities spontaneously. Full physical exam performed and significant for mild abdominal distention and mild left-sided tenderness. Increased tympany consistent with bowel gas. Differential includes but is not limited to gastroenteritis, pancreatitis, IBS,. Patient was given Tylenol, Toradol, Zofran for symptomatic management and correction of underlying abnormalities. Workup initiated including KUB, basic labs. On re-evaluation, patient [remains afebrile, HD stable.] Laboratory workup independently interpreted by me and significant for negative lipase, no significant electrolyte derangement, normal renal function. Imaging independently interpreted by me and significant for mildly distended colon with gas, no significant constipation, no evidence of obstruction. See radiology read for full review of final results. CT abdomen and pelvis was considered, but deemed unnecessary due to low clinical utility given benign exam and no evidence of obstruction on KUB.. Given patient history, exam and workup, patient's presentation most likely represents gastroenteritis. Reviewing her GI notes, they believe that she may have splenic flexure syndrome as well. I encouraged her to follow their recommendations. I sent a prescription for Zofran and sent a prescription for dicyclomine per their recommendations. Patient was discharged in stable condition peer return precautions given.. Procedures Risk/Benefits of Procedure(s) Were Explained: Yes Critical Care Critical Care Time Critical Care Time: No
[2025-03-23 23:16] VITALS: BP 137/105; PULSE 117; RESP 16; TEMP 36.6; O2SAT 98; BMI 22.4
[2025-03-23 23:20] LABS: Hematocrit 34.2 % (37.0-47.0); Hemoglobin 10.8 g/dL (12.2-16.2); Immature Granulocytes % 0.1 %; Mean Corpuscular HGB Conc 31.6 g/dL (31.8-35.4); Mean Corpuscular Hemoglobin 26.0 pg (27.0-31.2); Mean Corpuscular Volume 82.4 fl (81-99); Nucleated Red Blood Cells % 0 %; Platelet Count 280 K/mm3 (142-424); Red Blood Count 4.15 M/mm3 (4.20-5.40); Red Cell Distribution Width-SD 48.8 fL; White Blood Count 10.9 K/mm3 (4.8-10.8)
[2025-03-23 23:28] LABS: Albumin Level 5.0 g/dl (3.5-5.0); Chloride 105 mmol/L (98-107); Potassium 4.4 mmoL/L (3.5-5.1); Sodium 133 mmol/L (136-145)
[2025-03-23] MEDS: KETOROLAC 30MG/ML VIAL 30 MG IV (23:28)
[2025-03-23] MEDS: ONDANSETRON 4MG/2ML VIAL 4 MG IV (23:29)
[2025-03-23 23:30] LABS: Blood Urea Nitrogen 11 mg/dl (7-17); Creatinine Clearance Estimated 88 mL/min (50-200); Creatinine,Serum 0.90 mg/dl (0.52-1.04); Estimated Glomerular Filt Rate 74 ml/min (>60); GFR (African American) 89 ML/MIN (>60)
[2025-03-23 23:31] LABS: Alanine Aminotransferase 17 U/L (12-78); Albumin/Globulin Ratio 1.6 (1.1-1.8); Alkaline Phosphatase 43 U/L (38-126); Anion Gap 8.4 mEq/L (5-15); Aspartate Amino Transferase 43 U/L (14-36); Bilirubin,Total 0.7 mg/dl (0.2-1.3); Calcium 8.9 mg/dl (8.4-10.2); Carbon Dioxide 24 mmol/L (22.0-30.0); Globulin 3.1 g/dL (1.3-3.2); Glucose 87 mg/dl (74-100); Lipase 112 U/L (23-300); Total Protein,Serum 8.1 g/dl (6.3-8.2)
[2025-03-24 00:05] VITALS: BP 105/72; PULSE 91; RESP 16; TEMP 36.7; O2SAT 97
[2025-03-24 03:46] LABS: Hepatitis C Ab Qual. W/ RFX NEGATIVE (Negative)
== END 2025-03-24 00:05 | disposition home or self-care (01) ==
PROVIDERS: Emergency Provider Emergency Medicine; PCP Physician Assistant
DX: R10.9 Unspecified abdominal pain (principal); R14.0 Abdominal distension (gaseous); R11.2 Nausea with vomiting, unspecified; F17.290 Nicotine dependence, other tobacco product, uncomplicated
CPT/HCPCS: 74018; 80053; 83690; 85025; 86803; 87389; 96374; 96375; 99283; 99284; J1885; J2405